=== PATIENT | female | born 1955 | race Caucasian/White ===

== ENCOUNTER 2021-02-22 14:02 | Outpatient (CLI) | payer MEDICARE, OTHER, SELFPAY ==
--- NOTE | 2021-02-22 17:40 | ONC CON_ITS ---
Dr. Benz New Patient Note Patient: Yenifer Ríos Unit #: [id number]: 1955 Dicatated By: China Benz M.D.Date of Visit: Feb 22, 2021 Onc MED New Patient/Consult Referring Physician: Dr. Grant Purvis M.D. History of Present Illness: This is a 65 year old woman who presented with clinical symptoms of umbilical hernia. Preoperative Ca-125 was 255 on 03/12/12. On 03/26/12 she underwent exploratory laparotomy and surgical debulking with total abdominal hysterectomy, bilateral oophorectomies with an block rectosigmoid resection and anastomosis, inguinal lymph node dissection. 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 3/20 lymph nodes were involved. Thus, pathological T3c N1 M1 (abdominal wall) FIGO stage IV. Left sided Port-A-Cath was placed. She was first seen on 04/15/12. Her baseline CT of chest abdomen and pelvis on 04/28/12 showed postoperative changes with seromas, but no evidence of recurrent disease, adenopathy or metastatic lesion. Ca-125 decreased to 74.9. Palliative chemotherapy with Carboplatin AUC of 6 and Paclitaxel 175 mg/m2 for six cycles every 3 weeks was recommenced. The chemotherapy was initiated on 04/28/12, complicated with grade 3 neutropenia without infections requiring further growth factor support. Her restaging CT of the chest abdomen and pelvis on 07/09/12, after 4 cycles of treatment, showed decreased postsurgical fluid collections and no evidence of disease progression. Cycle 6 was completed on 1/8/13. CEA 13.3. After that, patient moved to [place], where, in 2014 she went to [facility] with abnormal left breast mammogram, biopsy confirmed, subsequently underwent neoadjuvant chemotherapy with Taxotere/Herceptin/Perjeta for ER positive TN negative HER-2/eric positive disease followed by bilateral mastectomy which confirmed 8 out of 19 positive lymph node, e.g. yT2, yN2A, ER 94% positive TN 0% HER-2/eric 3+ by FISH stage III followed by Arimidex, and in early 2015 patient developed lesion on the left breast skin, excisional biopsy done on November 23, 2015 showed dermal cutaneous nodule of recurrence IDC of breast, grade 3, main tumor nodule measured 1.5 cm size and does not directly involve the margin. At least one satellite nodule of tumor measuring 0.2 cm in size with extensive lymphatic invasion by tumor including lymphatic channel adjacent to the margin concerning for skin/chest wall recurrence at the left reconstruction site. And brain mets CT PET scan done in January 2017 showed right glenohumeral joint lesion about 2.5 cm, MRI of right shoulder done in March 2017 showed 3.6 x 2.5 x 3.4 cm bone marrow lesion within the medial right humeral head consistent with sclerotic metastatic disease CT-guided biopsy was done which confirmed metastatic carcinoma consistent with breast primary ER positive TN negative HER-2/eric positive patient completed whole brain radiation therapy on on March 28, 2017 follow-up CT brain done in February 2018 showed no brain mets. Patient also had left excisional breast biopsy done in January 2017 showed high-grade IDC with dermal lymphatic invasion ER positive TN negative HER-2/eric positive, at that time she was placed on lapatinib 1250 mg p.o. daily which is used as systemic therapy to target HER-2/eric positive metastatic breast cancer, Faslodex was started on March 25, 2017, Herceptin started on March 20, 2017, Xgeva was started on June 17, 2017, on April 07, 2018 Herceptin and Tykerb was stopped and on April 28, 2018 patient was started on Kadcyla patient was referred to radiation oncology regarding radiation therapy to the right humerus but at that time he was decided to hold off radiation. Follow-up CT PET scan done on July 05 showed response to the treatment follow-up CT scan and bone scan done in November 2018 showed stable disease and follow-up CT scan of brain done on January 19, 2019 showed no brain mets but mild small vessel ischemic changes for which she was referred to neurology. Follow-up CT PET scan done in April 2019 shows stable disease but nonspecific tiny focus of FDG accumulation right third rib for which she was referred to pulmonology to address lung changes seen on CT scan on June 18, 2019 patient had a bone scan done which shows stable disease and her echocardiogram done on June 08, 2019 shows ejection fraction 65 to 70% and her follow-up CT PET scan done in November 2019 shows stable disease then repeat follow-up CT PET scan done on March 21, 2020 shows stable disease On April 06, 2020 patient had TTE which showed ejection fraction 74% Follow-up CT PET scan done in September 2020 shows status post bilateral mastectomy with no focal area of increased activity in the chest abdomen or pelvis to suggest metastatic disease. Stable minimally active fibrotic changes at the lung bases posteriorly most consistent with inflammatory process. New large area of intense activity in the left maxilla which could represent dental process. Stable nonmetabolically active sclerotic lesion at L2 and in the large humeral head. On January 31, 2022 February 03, 2020 patient underwent debridement of necrotic bone left maxilla and bleeding controlled surrounding soft tissue with Dr. Marlo Purvsi. Oral surgery. Postop finding were necrotic bone with sharp margins adjacent bleeding granulation tissue. Patient received 2 units of packed RBC. On February 09, 2021 Xgeva was discontinued due to ONJ. While continue with Kadcyla every 3 weeks and Faslodex every 4 weeks History of left lower extremity DVT patient was started on Eliquis on May 28, 2017 and Eliquis was stopped on November 26, 2018. History of skin rash across chest and on left arm seen by dermatology on December 28, 2019 and impression was spider angiomas may be due to underlying metastatic disease or hyper estrogen state versus liver disease from metastatic disease. History of left knee stiffness improved with physical therapy.,'s history of slightly elevated bilirubin around one-point being observed. History of hypoxia, VQ scan done on March 13, 2020 was normal study no history of PE., Stroke per patient and daughter patient had a fall on January 15, 2021 which prompted hospital stay and CT scan of head apparently revealed evidence of stroke she was started on baby aspirin and Lipitor with improvement to mental clarity On January 26, 2021 VQ scan lung shows no evidence of pulmonary embolism Patient has moved to [place] and now here to establish care. Denies any specific complaints, no fever chills, no nausea or vomiting, no diarrhea or constipation, only mild lower extremity edema, as per patient she traveled via car from [place] to [place] recently may have caused this edema. Denies any lower extremity pain denies any new bony pain denies any headaches blurred vision or double vision denies any shortness of breath or chest pain or palpitation. Past Medical History: Ms. Ríos's medical history consists of left lower extremity dvt, history of ovarian cancer in 2011, and history of melanoma, left cheek in 1980. Past Surgical History: Ms. Ríos's surgical/procedural history consists of appendectomy, hernia repair, inguinal lymph node dissection, covid vaccine #2 in 2020, covid vaccine #1 in 2020, mastectomy in 2015 - bilateral, and hysterectomy/bilateral salpingectomy-oophorectomy in 2011. Medications: Amoxicillin-Pot Clavulanate 1 Tablet (of 875-125 mg) Oral t.i.d., Aspirin 81 1 Tablet (of 81 mg) Tablet, chewable Oral daily, Calcium Tablet Oral, Crestor 1 Tablet (of 20 mg) Oral daily, Magnesium 1 Tablet (of 250 mg) Oral daily, MiraLax Powder Oral daily PRN Allergies: Iodinated Contrast Media Social History: Ms. Ríos is . Ms. Ríos has never smoked. She has no history of drinking. Family History: Ms. Ríos's father is : cancer history consists of Lung cancer at age 87 (cause of ). FATHER AT AGE 87 FROM LUNG CA. Review Of Symptoms: Review of Systems is not available for this patient. Vital Signs: Performed on Feb 22, 2021 15:22: 0, 0, 23.63, 1.88 sq.m, 69.00 in, 91 % (LOW), 74 /min, 18 /min, 112/67 mm(hg), 98.6 F, and 160 lbs (LOW). Performance Status: 2 - Ambulatory/capable of all self-care, unable to perform any work activities. Up and about more than 50% of waking hours. (ECOG) Physical Examination: ENMT - No mouth sores, no thrush, no jaundice, Respiratory - Lungs are clear to auscultation, Cardiovascular - Regular rate and rhythm of heart, Abdomen - Soft, bowel sounds present, Extremities - Trace edema bilaterally. Lab/Imaging: Most recent lab results are not available for this patient. Impression: Metastatic invasive ductal carcinoma involving brain status post radiation therapy and multiple bone lesions including biopsy-proven right humeral head in March 2017, at that time she was referred to radiation and patient received whole brain radiation therapy and completed on March 28, 2017 but no radiation was considered to right humerus. Earlier patient was diagnosed with left breast cancer in 2014, at that time she underwent neoadjuvant chemotherapy with Taxotere/Herceptin/Perjeta x6 followed by bilateral mastectomy which showed yT2 ,y N2A, MX stage III followed by Arimidex and then in January 2017 she underwent left breast excisional biopsy which showed high-grade IDC with dermal lymphatic invasion ER positive TN negative HER-2/eric positive, at that time she was placed on lapatinib 1250 mg p.o. daily, Faslodex was started on March 25, 2017 and Herceptin was added on March 20, 2017 and Xgeva was started on June 17, 2017, in April 2018 Herceptin and Tykerb was stopped and on April 28, 2018 she was started on Kadcyla every 3 weeks and follow-up scans done in 2017 and then in and in 2019 showed stable disease and the last PET scan done on September 19, 2020 showed status post bilateral mastectomy with no focal area of increased activity in the chest, abdomen or pelvis to suggest metastatic disease. Stable minimal reactive fibrotic changes at the lung bases consistent with inflammatory process. New large area of intense activity in the left maxilla could represent dental process. Stable nonmetabolically active sclerotic lesion at L2 and in the right humeral head. On January 31, 2021 patient underwent debridement of necrotic bone left maxilla and bleeding controlled surrounding soft tissue and patient did require 2 units of packed RBC. Xgeva was discontinued on February 09, 2021 due to ONJ, while continue on 3 weekly Kadcyla and for weekly Faslodex History of left lower extremity DVT started on Eliquis on May 28, 2017 stopped on November 26, 2018. History of mild transaminitis AST 137 on January 31, 2021, being monitored Pancreatic cyst seen on CT scan of chest abdomen pelvis in April 2019, she was referred to pancreaticobiliary surgeon, follow-up was recommended Skin rash across chest and left arm, was evaluated by dermatology on December 28, 2019 and impression was spider angiomas due to underlying metastatic disease or hyper estrogen state or medication Left knee stiffness improved with physical therapy. Slightly elevated bilirubin, being observed. Hypoxia, VQ scan done in March 2020 was normal study, was evaluated by Dr. Ty Trevizo on November 27, 2020 who advised her to use home oxygen to keep O2 saturation more than 89% his impression was patient may have ILD chest x-ray done on February 01, 2021 shows stable interstitial prominence within the periphery of both lungs suggestive of drug-related pneumonitis/fibrosis VQ scan done on January 26, 2021 shows no evidence of pulmonary embolism Patient status post maternal Covid vaccine done in September 1999 21-second dose was given on October 13, 2020 CVA as per patient and daughter patient had a fall on January 15, 2021 for which she was admitted to hospital and had CT scan of the brain which was consistent with stroke and she was started on baby aspirin and Lipitor with improvement to mental clarity. Plan: Discussed with patient regarding her disease status and treatment options, as patient is transitioning her care from [place] to [place], will continue with already established treatment with Kadcyla every 3 weeks and Faslodex every 4 weeks patient is due for her treatment, will obtain approval from her insurance prior to starting the treatment all the side effect possible benefits associated with Kadcyla and Faslodex were discussed briefly again but patient is aware of related side effects and she is on potassium supplement as Kadcyla can cause hypokalemia as one of the side effect. We will also obtain baseline echo to check ejection fraction and also order his follow-up CT PET scan to assess disease status, patient already has lab work-up done recently with CBC CMP, CEA and CA 15.3 and vitamin D level, will obtain the reports. Patient will return to clinic after echo with CBC CMP and to start her next scheduled dose of Kadcyla every 3 weeks and Faslodex every 4 weeks, as mentioned earlier Xgeva was discontinued because of ONJ involving left maxilla. Signed By: China Benz M.D. <<Signature on File>>
== END 2021-02-22 14:03 | disposition home or self-care (01) ==
LOC: ONCMED 14:13
PROVIDERS: PCP Family Medicine; Visit Provider Internal Medicine Hematology & Oncology
DX: C79.51 Secondary malignant neoplasm of bone (principal); Z85.3 Personal history of malignant neoplasm of breast; Z90.13 Acquired absence of bilateral breasts and nipples; I82.409 Acute embolism and thrombosis of unspecified deep veins of unspecified lower extremity; K86.2 Cyst of pancreas; R09.02 Hypoxemia; Z79.899 Other long term (current) drug therapy; R74.01 Elevation of levels of liver transaminase levels
CPT/HCPCS: 99215

== ENCOUNTER 2021-02-25 11:08 | Observation (INO) | payer MEDICARE, OTHER, SELFPAY ==
[2021-02-25] VITALS (7 sets, daily range): BP systolic 113–125; BP diastolic 60–76; PULSE 69–75; RESP 16–19; TEMP 36.5–36.6; O2SAT 90–99; BMI 25.0
[2021-02-25 11:25] LABS: Glucose Point of Care 90 mg/dL (70-110)
--- NOTE | 2021-02-25 11:28 | CTR_ITS ---
PROCEDURE INFORMATION: Exam: CT Head Without Contrast Exam date and time: 02/25/2021 11:28 AM Age: 65 years old Clinical indication: Speech disturbance; Additional info: Symptoms of acute stroke TECHNIQUE: Imaging protocol: Computed tomography of the head without contrast. Radiation optimization: All CT scans at this facility use at least one of these dose optimization techniques: automated exposure control; mA and/or kV adjustment per patient size (includes targeted exams where dose is matched to clinical indication); or iterative reconstruction. Other technique: STROKE PROTOCOL was implemented. COMPARISON: No relevant prior studies available. RADIATION DOSE METRICS: Total DLP (mGy-cm): 932.76 FINDINGS: Brain: No hemorrhage, mass effect or midline shift. There is a patchy airspace opacity in the superior right cerebellar hemisphere, concerning for acute infarct.There is foci of decreased attenuation in the periventricular and subcortical white matter, likely representing chronic small vessel ischemic changes. Mild cerebral volume loss is present. No intra-axial or extra-axial fluid collection seen. Cerebral ventricles: No ventriculomegaly. Paranasal sinuses: There is complete opacification of the left frontal sinus and partial opacification of the left ethmoid air cells. Mastoid air cells: Visualized mastoid air cells are well aerated. Bones/joints: Unremarkable. No acute fracture. Soft tissues: Unremarkable. CT/CT head wo con* [id number] IMPRESSION: Imaging findings concerning for acute infarct in the superior right cerebellar hemisphere. Further evaluation with brain MRI is recommended. ASSESSMENT: ASPECTS ([place] Stroke Program Early CT Score) is 10. Radiation Dose CTDIVOL = (mGy): DLP = 932.76 (mGy-cm)
--- NOTE | 2021-02-25 11:28 | ECG_ITS ---
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 Measurements Intervals [place] Rate: 60 P: 65 [place]: 173 QRS: 27 QRSD: 110 T: 32 QT: 439 QTc: 440 Interpretive Statements SINUS RHYTHM WITH SINUS ARRHYTHMIA No previous ECG available for comparison Electronically Signed On 02-25-2021 18:07:36 CDT by Sakina Flores M.D. [id number]
--- NOTE | 2021-02-25 11:29 | ED_ITS ---
HPI - Altered Mental Status General: Chief Complaint: Altered Mental Status Stated Complaint: POSS STROKE Time Seen by Provider: 02/25/21 11:20 Source: patient and family Mode of arrival: ambulatory Limitations: other (dysphagia) History of Present Illness: HPI narrative: At approximately 1050 am this morning, patient was riding as a passenger [place] their [place] and patient riley barrios had trouble speaking and seemed confused. Patient arrived to ED 20 min after onset and symptoms were improving. NIH currently 3. Patient denies trauma. She has a history of multiple cancers but states not on chemotherapy and no active cancer to her knowledge. Denies recent illness, trauma, anticoagulants. She has had dental bleeding from a tooth extraction in last few weeks; denies other major bleeding issues. I spoke with Ivanna, the patient's daughter, who states she had a mini stroke about 3 months ago and has had progressive cognitive decline since this. Ivanna says she had a tooth extraction 2 months ago; 2.5 weeks ago patient had a sore at extraction site and required 4 units of blood--had to have part of bone removed by OMFS. Ivanna reports she had minimal activity on recent PET scan. Ivanna and I discussed tPA; she is going to call her brother to discuss. Review of Systems General: Reports: 10 or more systems reviewed and unremarkable except in HPI and below Const: Denies: fever(s), chills or body aches Eyes: Denies: change in vision ENMT: Denies: throat pain Card: Denies: chest pain, edema or syncope Resp: Denies: dyspnea or productive cough GI: Denies: abdominal pain, nausea, vomiting or diarrhea : Denies: flank pain, dysuria or urinary frequency Musc: Denies: neck pain, back pain, extremity pain or extremity swelling Skin/Breast: Denies: rash or erythema Neuro: Reports: difficulty walking, confusion, Slurred speech present and difficulty communicating thoughts; Denies: headache(s), numbness in extremities, weakness in extremities, sensory changes, lack of coordination or dizziness Psych: Denies: anxiety Physical Exam Const: COMMON NORMALS: patient oriented x3 and alert ORIENTATION/CONSCIOU SNESS: Yes oriented to person, Yes oriented to place and Yes oriented to time Neck/C-Spine: COMMON NORMALS: no meningeal signs Neuro: TENISHA COMA SCALE: document GCS findings Tenisha coma scale eye opening: Spontaneous [place] coma scale verbal response: Orientated [place] coma scale motor response: Obey commands [place] coma scale total score: 15 COMMON NORMALS: patient oriented x3, moves all extremities and no sensory deficits noted SENSORIUM/ORIENTATION: Yes alert, Yes oriented to person, Yes oriented to place, Yes oriented to time and Yes other (slowed responses) MENINGEAL SIGNS: Yes no meningeal signs CRANIAL NERVES: Yes CN normal except as noted (mild right nasolabial fold flattening) COORDINATION/BALANCE: [id number] test normal, Normal rapid alternating movements of the distal upper extremity present (Neuro) and Normal rapid alternating movements of the distal lower extremity present (Neuro) SPEECH: abnormal speech (mild dysarthria, word finding trouble, slowed responses) and expressive aphasia GAIT: Yes Steppage gait present SENSORY EXAM: Yes Normal double simultaneous stimulation for sensation MOTOR EXAM: 5/5 motor strength present throughout, Pronator motor function not present, no asterixis and Other motor observations present (occasional muscle twitch/tremor) COORDINATION: [id number] test normal, rapid alternating movement UE normal and rapid alternating movement LE normal PUPIL EXAM: Normal pupillary reactivity/response: bilateral Course Vital Signs: Vital signs: Vital Signs Temperature 97.9 F 02/25/21 11:09 Pulse Rate 69 02/25/21 11:09 Respiratory Rate 19 H 02/25/21 11:09 Blood Pressure 113/67 02/25/21 11:09 Pulse Oximetry 90 02/25/21 11:09 MDM - Altered Mental Status MDM Narrative: Medical decision making narrative: Glucose 90 BP 113/67 NIH 3 for mild right nasolabial fold flattening, mild dysarthria, moderate expressive aphasia. Discussed with Dr Leonardo, stroke neurologist. He has recommended tPA as long as no contraindications, family confirms this is acute, and CT head w/o neg. Update: I was able to speak with daughter by phone. See hpi. Ivanna says patient has had one, if not more (her oopinion) strokes in the last 3 months. 1220: Imaging findings concerning for acute infarct in the superior right cerebellar hemisphere. Further evaluation with brain MRI is recommended. Given family's report of stroke within the last 3 months and now visible acute infarct, I have re-consulted Dr Leonardo to discuss tPA, which is contraindicated if patient has had stroke in last 3 months. Additionally, CT head found maging findings concerning for acute infarct in the superior right cerebellar hemisphere indicating there has been another infarct more recently than 10:[address] Leonardo who agrees with plan. Admitted to Dr Power. Lab Data: Labs: Lab Results 02/25/21 02/25/21 02/25/21 Range/Units 11:23 11:33 11:33 WBC 6.1 (4.0-10.0) 10^3/ uL RBC 3.12 L (4.1-5.3) 10^6/u L Hgb 8.4 L (11.5-15.3) g/dL Hct 28.6 L (37.0-47.0) % MCV 91.7 (81-99) fL MCH 26.9 L (28.0-34.0) pg MCHC 29.4 L (30.0-36.0) g/dL RDW 18.8 H (12.1-15.1) % Plt Count 237 (130-400) 10^3/c mm MPV 10.1 (7.4-10.4) fL Neut % (Auto) 53.2 % Lymph % (Auto) 31.4 % [place] % (Auto) 9.4 % Eos % (Auto) 4.0 % Baso % (Auto) 1.5 % Neut # (Auto) 3.22 (1.8-7.7) 10^3/u L Lymph # (Auto) 1.9 (0.8-4.8) 10^3/u L [place] # (Auto) 0.6 (0.2-0.9) 10^3/u L Eos # (Auto) 0.2 (0.0-0.8) 10^3/u L Baso # (Auto) 0.1 (0.0-0.1) 10^3/u L Nucleated RBC % (a uto) 0 % Nucleated RBCs # 0.0 /100WBC PT 13.40 (12.1-14.9) SECO NDS INR 0.99 (0.8-1.2) APTT 33.3 (23.9-36.7) SECO NDS Sodium (136-145) mmol/L Potassium (3.5-5.1) mmol/L Chloride (98-107) mmol/L Carbon Dioxide (22-29) mmol/L Anion Gap (5-19) BUN (8-23) mg/dL Creatinine (0.5-0.9) mg/dL GFR Calculation (90-130) mL/min Glucose (65-115) mg/dL POC Glucose 90 (70-110) mg/dL Calculated Osmolal ity (285-295) mOsm/k g Calcium (8.5-10.5) mg/dL Total Bilirubin (0.15-1.2) mg/dL AST (0-32) U/L ALT (0-33) U/L Alkaline Phosphata se (35-105) IU/L Total Protein (6.6-8.7) g/dL Albumin (3.5-5.2) g/dL Globulin (1.3-4.6) g/dL 02/25/21 Range/Units 11:33 WBC (4.0-10.0) 10^3/ uL RBC (4.1-5.3) 10^6/u L Hgb (11.5-15.3) g/dL Hct (37.0-47.0) % MCV (81-99) fL MCH (28.0-34.0) pg MCHC (30.0-36.0) g/dL RDW (12.1-15.1) % Plt Count (130-400) 10^3/c mm MPV (7.4-10.4) fL Neut % (Auto) % Lymph % (Auto) % [place] % (Auto) % Eos % (Auto) % Baso % (Auto) % Neut # (Auto) (1.8-7.7) 10^3/u L Lymph # (Auto) (0.8-4.8) 10^3/u L [place] # (Auto) (0.2-0.9) 10^3/u L Eos # (Auto) (0.0-0.8) 10^3/u L Baso # (Auto) (0.0-0.1) 10^3/u L Nucleated RBC % (a uto) % Nucleated RBCs # /100WBC PT (12.1-14.9) SECO NDS INR (0.8-1.2) APTT (23.9-36.7) SECO NDS Sodium 138 (136-145) mmol/L Potassium 4.0 (3.5-5.1) mmol/L Chloride 102 (98-107) mmol/L Carbon Dioxide 27 (22-29) mmol/L Anion Gap 13.0 (5-19) BUN 23 (8-23) mg/dL Creatinine 0.6 (0.5-0.9) mg/dL GFR Calculation 99.7 (90-130) mL/min Glucose 88 (65-115) mg/dL POC Glucose (70-110) mg/dL Calculated Osmolal ity 289 (285-295) mOsm/k g Calcium 9.7 (8.5-10.5) mg/dL Total Bilirubin 0.8 (0.15-1.2) mg/dL AST 31 (0-32) U/L ALT 18 (0-33) U/L Alkaline Phosphata se 100 (35-105) IU/L Total Protein 6.8 (6.6-8.7) g/dL Albumin 3.3 L (3.5-5.2) g/dL Globulin 3.5 (1.3-4.6) g/dL EKG Data^: EKG 1: Attestation: I personally reviewed and interpreted this EKG as follows: Interpretation: sinus at 60, nl axis, nl axis, qrs 110 ms, no concerning st-t wa ve changes Critical Care Time Critical Care Time: Critical Care Time: Yes Total Critical Care Time: 60 Attestation: Complex decision making with neurologic deficits, obtaining collateral, multiple reassessments, consultation with specialist, review of imaging and vitals. Discharge Plan Discharge Patient Disposition: Placed in Observation Clinical Impression: Expressive aphasia, Acute stroke due to ischemia Coding Level of Care Code ED Mess Attendant Crew for Chg Fwd Exam Expanded Problem Focused
[2021-02-25 11:55] LABS: Basophils # 0.1 10^3/uL (0.0-0.1); Basophils % 1.5 %; Eosinophils # 0.2 10^3/uL (0.0-0.8); Hematocrit 28.6 % (37.0-47.0); Hemoglobin 8.4 g/dL (11.5-15.3); Lymphocytes # 1.9 10^3/uL (0.8-4.8); Lymphocytes % 31.4 %; Mean Corpuscular HGB Conc 29.4 g/dL (30.0-36.0); Mean Corpuscular Hemoglobin 26.9 pg (28.0-34.0); Mean Corpuscular Volume 91.7 fL (81-99); Mean Platelet Volume 10.1 fL (7.4-10.4); Monocytes # 0.6 10^3/uL (0.2-0.9); Monocytes % 9.4 %; Neutrophils # 3.22 10^3/uL (1.8-7.7); Neutrophils % 53.2 %; Nucleated Red Blood Cells % 0 %; Platelet Count 237 10^3/cmm (130-400); Red Blood Count 3.12 10^6/uL (4.1-5.3); Red Cell Distribution Width 18.8 % (12.1-15.1); White Blood Count 6.1 10^3/uL (4.0-10.0)
[2021-02-25 12:00] LABS: INR 0.99 (0.8-1.2)
[2021-02-25 12:01] LABS: Partial Thromboplastin Time 33.3 SECONDS (23.9-36.7)
[2021-02-25 12:11] LABS: Alanine Aminotransferase 18 U/L (0-33); Albumin Level 3.3 g/dL (3.5-5.2); Alkaline Phosphatase 100 IU/L (35-105); Aspartate Amino Transferase 31 U/L (0-32); Blood Urea Nitrogen 23 mg/dL (8-23); Calcium 9.7 mg/dL (8.5-10.5); Carbon Dioxide 27 mmol/L (22-29); Chloride 102 mmol/L (98-107); Globulin 3.5 g/dL (1.3-4.6); Glomerular Filtration Rate 99.7 mL/min (90-130); Glucose 88 mg/dL (65-115); Osmolality Calculated 289 mOsm/kg (285-295); Sodium 138 mmol/L (136-145); Total Bilirubin 0.8 mg/dL (0.15-1.2); Total Protein 6.8 g/dL (6.6-8.7)
[2021-02-25] MEDS: aspirin 81 mg Chew Tablet PO (13:51)
[2021-02-25 14:08] LABS: Urine Appearance Cloudy (CLEAR); Urine Color Yellow (Yellow); pH Urine 6.5 (5-7)
[2021-02-25 14:09] LABS: Add Urine Microscopic? YES; Bilirubin Urine Neg (Negative); Blood Urine Neg (Negative); Glucose Urine UA Norm (Normal); Ketones Urine Negative (Negative); Leukocyte Esterase Urine Negative (Negative); Nitrate Urine Negative (Negative); Protein Urine Neg (Negative); Urobilinogen Urine 1 mg/dL (Negative)
[2021-02-25 14:10] LABS: Add Urine Culture? No; Amorphous Sediment Urine 3+ /hpf; Bacteria Urine 1+ /hpf; Squamous Epithelial Cell Urine RARE /hpf (0-5); WBC Urine 0-4 /hpf (0-5)
--- NOTE | 2021-02-25 15:00 | P.HP_ITS ---
Providers/Chief Complaint Primary Care Provider: Grant Purvis MD Chief Complaint: POSS STROKE History of Present Illness Yenifer Ríos is a 65 year old female who has history of multiple cancers, has moved from [facility] to [place] recently presented today when her daughter noticed slurring of speech while they were driving. Symptoms started around 10:50 AM and she was brought to the ER within 20 minutes her NIH score was 3 she was deemed not a TPA candidate because of recent episode of stroke, low NIH score. She has metal in her body which is not MRI compatible, she has iodine allergies. CT head unremarkable, stroke code was called Dr. Chavez recommended echo admit to telemetry floor to rule out A. fib carotid Doppler and dual antiplatelet therapy. She also had dental bleeding from tooth extraction lately and required 4 units of blood. Patient is stating that she moved from [facility] a week ago. She was in [place] for treatment of her cancer. Today when she arrived in the ER within 20 minutes of her symptoms her speech which was initially slurred improved already. She was given NIH score of 3 not a TPA candidate. By the time I saw her she was not complaining of any active chest pain, shortness of breath nausea, vomiting or diarrhea. Her speech was fine no active slurring of speech noted. She was asking for food. Patient is stating that she gets slurring of speech/dysarthria intermittently and it was probably the same presentation 3 months ago. Diagnostics in the ER revealed normal hemodynamics, normal CBC and BMP CBC revealed anemia 8.[address] head shows acute infarct in the superior right cerebellar hemisphere Review of Systems Const: Reports: chills Eyes: Denies: change in vision ENMT: Denies: throat pain Card: Denies: chest pain Resp: Denies: dyspnea GI: Denies: abdominal pain : Denies: flank pain Musc: Denies: neck pain Skin/Breast: Denies: rash Neuro: Denies: headache(s) Psych: Reports: anxiety and depression Endo: Denies: polyuria Benji/Lymph: Denies: easy bruising All/Imm: Denies: urticaria Medications/Allergies Home Medications Medication Instructions Recorded Confirmed Last Taken Type amoxicillin-pot clavulanate 1 tab PO TID 02/25/21 02/25/21 02/25/21 History aspirin [Aspir-81] 81 mg PO DAILY 0702/25/21 02/25/21 History calcium 250 mg PO DAILY 02/25/21 02/25/21 02/25/21 History magnesium 200 mg PO DAILY 02/25/21 02/25/21 02/25/21 History rosuvastatin 20 mg PO DAILY 02/25/21 02/25/21 02/25/21 History Allergies Allergy/AdvReac Type Severity Reaction Status Date / Time Iodinated Contrast Media Allergy ALGY-Anaphy Verified 02/25/21 11:09 laxis iodine Allergy ALGY-Anaphy Verified 02/25/21 11:09 laxis PFSH Acute PFSH: Medical History Ovarian cancer Stage IV Recurrent strokes Skin cancer Surgical History H/O abdominal hysterectomy Debulking surgery H/O umbilical hernia repair History of colon surgery Rectosigmoid resection and anastomosis S/P DARCIE-BSO Family History Other Cancer Social History Smoking and tobacco status: never smoked Alcohol intake: never Substance/Drug Use: never Marital status: Vitals/I&O/Wt Last Vital Signs Temp 97.9 F 02/25/21 11:09 Pulse 69 02/25/21 11:09 Resp 19 H 02/25/21 11:09 BP 113/67 02/25/21 11:09 Pulse Ox 90 02/25/21 11:09 Weight last 48 hrs Weight 72.575 kg Physical Exam Narrative: EXAM NARRATIVE: Pleasant cooperative female who was laying comfortably in her bed NIH score of 1 for partial nasolabial fold flattening and angle of mouth deviation on right side Hemodynamically stable Was able to do finger-nose test with her right hand EOMI, PERRLA She was wearing her glasses S1, S2 systolic murmur right second intercostal space Abdomen soft Lower extremity no edema Awake alert oriented x3 Appears anxious No signs of joint swelling or cellulitis Data : 02/25/21 11:33 02/25/21 11:33 A&P Assessment and plan (1) Expressive aphasia: Status: Acute (2) Acute stroke due to ischemia: Status: Acute Additional A&P Information TIA dysarthria with expressive aphasia Symptoms resolved by the time I saw her NIH score of 1 initially she was given and a score of 3 EKG showing sinus rhythm Patient is stating that she gets intermittent dysarthria Started on aspirin and Plavix and high-dose statin Monitor on telemetry requested ultrasound of carotids and echocardiogram Not a candidate of MRI her metal is incompatible Anaphylactic reaction to iodine cannot get CTA head and neck PT evaluation in the morning No active slurring of speech I will let her have her dinner after bedside dysphagia evaluation Would recommend outpatient follow-up with Dr. Christensen Would request records from [facility] Superior right cerebellar hemisphere infarct with changes No active signs of bleeding however hemoglobin is 8.4 Full code Cardiac diet DVT prophylaxis Lovenox Attestations Medical Necessity Statement*: Anticipating discharge within 48 hours Time Spent in Patient Care: 30mins Coding Level of Care Code Acute [facility]iat[facility] for Dejuan Kincaid Diagnoses Expressive aphasia R47.01 Acute stroke due to ischemia I63.9
--- NOTE | 2021-02-25 18:35 | PC.NURSE ---
[facility] [place], [place] number [phone]
[2021-02-25] MEDS: amoxicillin-clav 500-125 mg Tablet 1 TAB PO (20:37)
[2021-02-25 20:43] LABS: Glucose Point of Care 126 mg/dL (70-110)
[2021-02-26] VITALS: BP 120/66; BP 125/76; PULSE 74; PULSE 75; RESP 16; RESP 17; TEMP 36.6; O2SAT 98
[2021-02-26 04:00] VITALS: BP 94/55; PULSE 64; RESP 16; TEMP 37.1; O2SAT 97
[2021-02-26 06:00] VITALS: PULSE 70
--- NOTE | 2021-02-26 06:00 | USCV_ITS ---
Yenifer Ríos Age: 65 Gender: F : 1955 Exam Date: 02/26/2021 07:23 Ordering Phys: Minnie Power MD Technologist: Fransisco Cotto Exam Location: [facility] [place] Indication: TACHYCARDIA BP: 94 / 55 HR: 55 Rhythm: Sinus Technical Quality: Good MEASUREMENTS (Male / Female) Normal Values 2D ECHO LV Diastolic Diameter PLAX 4.1 cm 4.2 - 5.9 / 3.9 - 5.3 cm LV Systolic Diameter PLAX 2.8 cm IVS Diastolic Thickness 1.3 cm 0.6 - 1.0 / 0.6 - 0.9 cm IVS Systolic Thickness 2.0 cm LVPW Diastolic Thickness 1.3 cm 0.6 - 1.0 / 0.6 - 0.9 cm LVPW Systolic Thickness 1.5 cm LVOT Diameter 2.0 cm LV Ejection Fraction 2D Teich 60.1 % LV Ejection Fraction MOD 2C 77.9 % LV Ejection Fraction 2C AL 79.7 % LA Diameter 3.5 cm LA Width 3.2 cm LA Height 3.6 cm RA Width 2.7 cm RA Height 3.9 cm Aorta at Sinotubular Diameter 2.1 cm M-MODE LV Diastolic Diameter MM 3.2 cm 4.2 - 5.9 / 3.9 - 5.3 cm LV Systolic Diameter MM 1.6 cm LV Ejection Fraction MM Teich 82.0 % IVS Diastolic Thickness MM 1.5 cm 0.6 - 1.0 / 0.6 - 0.9 cm IVS Systolic Thickness MM 1.3 cm LVPW Diastolic Thickness MM 1.2 cm 0.6 - 1.0 / 0.6 - 0.9 cm LVPW Systolic Thickness MM 1.4 cm Aortic Annulus Diameter 3.3 cm LA Ao Ratio MM 1.1 MV E Point Septal Separation 0.8 cm DOPPLER AV Peak Velocity 121.0 cm/s LVOT Peak Velocity 113.0 cm/s AV Area Cont Eq vti 2.9 cm squared AV Area Cont Eq pk 3.0 cm squared MV Peak Velocity 570.0 cm/s MV Area PHT 3.4 cm squared Mitral E to A Ratio 0.8 MV E' Velocity 71.0 cm/s TR Peak Velocity 114.0 cm/s TR Peak Gradient 5.2 mmHg RV Acceleration Time 0.1 s RV Ejection Time 0.4 s RV AcT/ET 0.3 FINDINGS Left Ventricle Normal left ventricular size. LV systolic function is normal with EF of 55-60%. No regional wall motion abnormalities. Grade 1 diastolic dysfunction Right Ventricle The right ventricle is normal in size and function. Right Atrium The right atrium is normal in size. Left Atrium The left atrium is mildly dilated Mitral Valve Mitral annular calcification without significant stenosis or prolapse. There is mild mitral regurgitation. Aortic Valve Structurally normal aortic valve without significant sclerosis or stenosis. There is no aortic regurgitation. Tricuspid Valve Structurally normal tricuspid valve without significant stenosis or regurgitation. Insufficient TR jet to calculate RVSP Pulmonic Valve Structurally normal pulmonic valve without significant stenosis. There is no pulmonic regurgitation. Pericardium Normal pericardium without effusion. Aorta Normal ascending aorta dimension. CONCLUSIONS LV systolic function is normal with EF of 55-60% Grade 1 diastolic dysfunction Mild mitral regurgitation Left atrium is mildly dilated No comparison studies are available Prasanna Reyes MD (Electronically Signed) Final Date: 26 February 2021 16:44 S
--- NOTE | 2021-02-26 06:00 | USCV_ITS ---
[place] Yenifer Age: 65 Gender: F : 1955 Exam Date: 02/26/2021 06:56 Ordering Phys: Minnie Power MD Technologist: CONRAD [place] [facility] [place]ication: STROKE LIKE SYMPTOMS Risk Factors: Previous Vascular Surgery: Right Brachial BP: / Left Brachial BP: / Right Left Velocity (cm/s) Spectral Plaque Velocity (cm/s) Spectral Plaque Syst/Diast Broadening Syst/Diast Broadening 94.80/ 26.50 Prox CCA 123.50/ 30.90 87.10/ 35.30 Mid CCA 77.00 / 34.10 63.90/ 20.90 Distal CCA 75.00 / 27.60 66.70/ 25.30 Prox ICA 109.20/ 47.40 105.80/36.40 Mid ICA 60.20 / 24.20 118.00/41.90 Distal ICA 49.90 / 20.80 76.60 ECA 59.30 1.22 ICA/CCA 0.78 Antegrade Vertebral Antegrade 54.70/ 20.90 cm/s 34.20/ 12.40 cm/s Tri Subclavian Tri 122.4 140.7 0 0 CONCLUSIONS Right ICA stenosis <50%. Mild atheromatous plaque right carotid bulb/ICA. Left ICA stenosis <50%. Mild atheromatous plaque left carotid bulb/ICA. Normal antegrade Doppler flow noted in the right vertebral artery. Normal antegrade Doppler flow noted in the left vertebral artery. David Walden MD (Electronically Signed) Final Date: 26 February 2021 08:42 S
[2021-02-26 06:11] LABS: Basophils # 0.2 10^3/uL (0.0-0.1); Basophils % 2.4 %; Eosinophils # 0.4 10^3/uL (0.0-0.8); Eosinophils % 5.7 %; Hematocrit 23.1 % (37.0-47.0); Hemoglobin 6.8 g/dL (11.5-15.3); Lymphocytes # 2.6 10^3/uL (0.8-4.8); Lymphocytes % 41.7 %; Mean Corpuscular HGB Conc 29.4 g/dL (30.0-36.0); Mean Corpuscular Hemoglobin 27.1 pg (28.0-34.0); Monocytes # 0.6 10^3/uL (0.2-0.9); Monocytes % 9.6 %; Neutrophils # 2.47 10^3/uL (1.8-7.7); Neutrophils % 40.3 %; Nucleated Red Blood Cells % 0 %; Platelet Count 180 10^3/cmm (130-400); Red Blood Count 2.51 10^6/uL (4.1-5.3); Red Cell Distribution Width 18.6 % (12.1-15.1); White Blood Count 6.1 10^3/uL (4.0-10.0)
[2021-02-26 06:38] LABS: Glucose Point of Care 89 mg/dL (70-110)
[2021-02-26 06:46] LABS: Anion Gap 10.8 (5-19); Blood Urea Nitrogen 21 mg/dL (8-23); Carbon Dioxide 28 mmol/L (22-29); Chloride 106 mmol/L (98-107); Glomerular Filtration Rate 99.7 mL/min (90-130); Glucose 75 mg/dL (65-115); Osmolality Calculated 294 mOsm/kg (285-295); Potassium 3.8 mmol/L (3.5-5.1); Sodium 141 mmol/L (136-145)
[2021-02-26 08:00] VITALS: BP 124/63; PULSE 63; RESP 17; TEMP 36.4; O2SAT 95
[2021-02-26] MEDS: atorvastatin 40 mg Tablet 80 MG PO (08:12)
[2021-02-26] MEDS: amoxicillin-clav 500-125 mg Tablet 1 TAB PO (08:12)
[2021-02-26] MEDS: clopidogrel 75 mg Tablet PO (08:12)
[2021-02-26] MEDS: aspirin 81 mg EC Tablet PO (08:12)
[2021-02-26 10:13] LABS: Hematocrit 27.4 % (37.0-47.0); Hemoglobin 8.1 g/dL (11.5-15.3)
[2021-02-26 11:30] VITALS: BP 114/66; PULSE 75; RESP 18; TEMP 36.3; O2SAT 97
[2021-02-26 11:33] LABS: Glucose Point of Care 118 mg/dL (70-110)
--- NOTE | 2021-02-26 12:25 | P.DS_ITS ---
Discharge Providers Date of Admission: 02/25/21 15:08 Date of Discharge: February 26, 2021 Attending Provider at Admission: Minnie Power MD Attending Provider at Discharge: Minnie Power MD Primary Care Provider: Grant Purvis MD Diagnoses at Discharge Discharge Diagnosis (1) Expressive aphasia: Status: Acute (2) Acute stroke due to ischemia: Status: Acute Reason for Visit Reason for Visit: POSS STROKE Hospital Course Hospital Course HPI Yenifer Ríos is a 65 year old female who has history of multiple cancers, has moved from [facility] to [place] recently, & presented today when her daughter noticed slurring of speech while they were driving. Symptoms started around 10:50 AM and she was brought to the ER within 20 minutes her NIH score was 3 she was deemed not a TPA candidate because of recent episode of stroke, low NIH score. She has metal in her body which is not MRI compatible, she has iodine allergies(anaphylaxis). CT head unremarkable, stroke code was called Dr. Waters recommended echo admit to telemetry floor to rule out A. fib carotid Doppler and dual antiplatelet therapy. She also had dental bleeding from tooth extraction lately and required 4 units of blood. Patient is stating that she moved from [facility] a week ago. She was in [place] for treatment of her cancer. Today when she arrived in the ER within 20 minutes of her symptoms her speech which was initially slurred improved already. She was given NIH score of 3 not a TPA candidate. By the time I saw her she was not complaining of any active chest pain, shortness of breath nausea, vomiting or diarrhea. Her speech was fine no active slurring of speech noted. She was asking for food. Patient is stating that she gets slurring of speech/dysarthria intermittently and it was probably the same presentation 3 months ago. Diagnostics in the ER revealed normal hemodynamics, normal CBC and BMP CBC revealed anemia 8.[address] head shows acute infarct in the superior right cerebellar hemisphere Hospital course Patient did not experience recurrence of her symptoms. On 02/26 noticed hemoglobin 6.8, I requested another H&H before starting anemia work-up, her hemoglobin came back 8.1 no overnight events of bleeding. She stayed hemodynamically stable no hypotension or orthostasis. She has been noticing small specks of blood whenever she wipes herself has history of internal hemorrhoids. No recent dental bleed. EKG with sinus rhythm. During my evaluation she did not exhibit any typical cerebellar lesion signs. Carotid Doppler CONCLUSIONS Right ICA stenosis <50%. Mild atheromatous plaque right carotid bulb/ICA. Left ICA stenosis <50%. Mild atheromatous plaque left carotid bulb/ICA. Normal antegrade Doppler flow noted in the right vertebral artery. Normal antegrade Doppler flow noted in the left vertebral artery. Medication on discharge: Aspirin, Plavix 3 weeks regimen atorvastatin 80 mg, Protonix 40 mg daily Patient was instructed when to stop her antiplatelet therapy Follow-up with Dr. Christensen in 2 weeks She will be discharged with event monitor to detect any irregular rhythm CT/CT head wo con* [id number] IMPRESSION: Imaging findings concerning for acute infarct in the superior right cerebellar hemisphere. Further evaluation with brain MRI is recommended. Physical Exam Narrative: EXAM NARRATIVE: Pleasant cooperative female who was laying comfortably in her bed NIH score of 1 for partial nasolabial fold flattening and angle of mouth deviation on right side Hemodynamically stable Was able to do finger-nose test and knee to heel without any limitations no scanning speech or dysdiadochokinesia EOMI, PERRLA She was wearing her glasses S1, S2 systolic murmur right second intercostal space Abdomen soft Lower extremity no edema Awake alert oriented x3 Appears anxious No signs of joint swelling or celluli Does not have typical cerebellar lesion sign Discharge Data Data Completed and Pending: Completed Studies During Hospitalization Category Date Time Status CT head wo con* [id number] Stat Cat Scan 02/25/21 11:28 Completed CV carotid duplex BI* [id number] Routine Ultrasound 02/26/21 06:00 Completed Pending at discharge Category Date Time Status Immunochemical Fe siomara OCB Stat Lab 02/26/21 08:49 Uncollected CV. echo complete * [id number] Routine Ultrasound 02/26/21 06:00 Taken Labs from last 24 hours 02/26/21 02/26/21 02/26/21 11:27 09:50 06:33 WBC RBC Hgb 8.1 L Hct 27.4 L MCV MCH MCHC RDW Plt Count MPV Neut % (Auto) Lymph % (Auto) [place] % (Auto) Eos % (Auto) Baso % (Auto) Neut # (Auto) Lymph # (Auto) [place] # (Auto) Eos # (Auto) Baso # (Auto) Nucleated RBC % (a uto) Nucleated RBCs # Sodium Potassium Chloride Carbon Dioxide Anion Gap BUN Creatinine GFR Calculation Glucose POC Glucose 118 H 89 Calculated Osmolal ity Calcium Urine Color Urine Appearance Urine pH Ur Specific Gravit y Urine Protein Urine Glucose (UA) Urine Ketones Urine Blood Urine Nitrate Urine Bilirubin Urine Urobilinogen Ur Leukocyte Faye ase Urine RBC Urine WBC Ur Squamous Epith Cells Amorphous Sediment Urine Bacteria 02/26/21 02/26/21 02/25/21 05:16 05:16 20:38 WBC 6.1 RBC 2.51 L Hgb 6.8 L Hct 23.1 L MCV 92.0 MCH 27.1 L MCHC 29.4 L RDW 18.6 H Plt Count 180 MPV 10.0 Neut % (Auto) 40.3 Lymph % (Auto) 41.7 [place] % (Auto) 9.6 Eos % (Auto) 5.7 Baso % (Auto) 2.4 Neut # (Auto) 2.47 Lymph # (Auto) 2.6 [place] # (Auto) 0.6 Eos # (Auto) 0.4 Baso # (Auto) 0.2 H Nucleated RBC % (a uto) 0 Nucleated RBCs # 0.0 Sodium 141 Potassium 3.8 Chloride 106 Carbon Dioxide 28 Anion Gap 10.8 BUN 21 Creatinine 0.6 GFR Calculation 99.7 Glucose 75 POC Glucose 126 H Calculated Osmolal ity 294 Calcium 9.0 Urine Color Urine Appearance Urine pH Ur Specific Gravit y Urine Protein Urine Glucose (UA) Urine Ketones Urine Blood Urine Nitrate Urine Bilirubin Urine Urobilinogen Ur Leukocyte Faye ase Urine RBC Urine WBC Ur Squamous Epith Cells Amorphous Sediment Urine Bacteria 02/25/21 13:49 WBC RBC Hgb Hct MCV MCH MCHC RDW Plt Count MPV Neut % (Auto) Lymph % (Auto) [place] % (Auto) Eos % (Auto) Baso % (Auto) Neut # (Auto) Lymph # (Auto) [place] # (Auto) Eos # (Auto) Baso # (Auto) Nucleated RBC % (a uto) Nucleated RBCs # Sodium Potassium Chloride Carbon Dioxide Anion Gap BUN Creatinine GFR Calculation Glucose POC Glucose Calculated Osmolal ity Calcium Urine Color Yellow Urine Appearance Cloudy Urine pH 6.5 Ur Specific Gravit y 1.020 Urine Protein Neg Urine Glucose (UA) Norm Urine Ketones Negative Urine Blood Neg Urine Nitrate Negative Urine Bilirubin Neg Urine Urobilinogen 1 H Ur Leukocyte Faye ase Negative Urine RBC None Urine WBC 0-4 H Ur Squamous Epith Cells Rare Amorphous Sediment 3+ Urine Bacteria 1+ H Vitals: Last Vital Signs Temp 97.4 F L 02/26/21 11:30 Pulse 75 02/26/21 11:30 Resp 18 02/26/21 11:30 BP 114/66 02/26/21 11:30 Pulse Ox 97 02/26/21 11:30 Discharge Plan Discharge Patient Disposition: Home Condition: Stable Prescriptions: New aspirin 81 mg Tablet,Delayed Release (Dr/Ec) 81 mg PO DAILY 30 Days Qty: 30 RF: 3 amoxicillin-pot clavulanate 500-125 mg Tablet 1 tab PO TID 7 Days Qty: 21 RF: 0 atorvastatin 40 mg Tablet 80 mg PO DAILY 30 Days Qty: 30 RF: 3 clopidogrel 75 mg Tablet 75 mg PO DAILY 21 Days Qty: 21 RF: 0 Protonix [address] for susp in packet 40 mg PO DAILY Qty: 30 RF: 1 Discontinued aspirin [Aspir-81] 81 mg Tablet,Delayed Release (Dr/Ec) 81 mg PO DAILY RF: 0 calcium 250 mg Tablet 250 mg PO DAILY RF: 0 amoxicillin-pot clavulanate 500-125 mg tablet 1 tab PO TID RF: 0 magnesium 200 mg Tablet 200 mg PO DAILY RF: 0 rosuvastatin 20 mg tablet 20 mg PO DAILY RF: 0 Discharge Orders: Discharge Order (Routine); Ordered 02/26/21 Ordered By: Minnie Power Other Ambulatory Orders: Complete Blood Count w/Auto (Routine) Timeframe: 3 Days Location: Determined by Patient Ordered By: Minnie Power [place] cardiac event monitor (Routine) Timeframe: 3 Weeks Facility: [facility] - Location: Cardiac Diagnostic Laboratory Ordered By: Minnie Power Referrals: Olinda Christensen MD [Physician] - 2 weeks Grant Purvis MD [Primary Care Provider] - 03/07/21 3:00 pm Discharge Diet: Cardiac Discharge Activity: Resume usual activity and Increase activity as tolerated Patient Instructions: Aspirin (By mouth), Amoxicillin/Clavulanate Potassium (By mouth), Atorvastatin (By mouth), Clopidogrel (By mouth), Pantoprazole (By mouth), Aphasia (DC), Ischemic Stroke (DC), Opioid Safety Activity Restrictions/Additional Instructions: You can use aspirin or Plavix for 3 weeks and after that he would only use aspirin. We will also use 80 mg of atorvastatin You can see Dr. Christensen our neurologist within 2 weeks He will wear arm monitor which is call event monitor for at least 3 weeks to detect any abnormal heart rhythm In case he noticed any profuse bleeding please stop taking aspirin Plavix Discharge Attestations Time Spent in Discharge Care*: less than 30 min Quality Metrics Clinical Quality Measures During this hospital stay, did patient experience: Stroke Contraindication to Antithrombotic: Antithrombotic prescribed Contraindication to Anticoagulation: Medical contraindication Contraindication to Statin: Statin prescribed Contraindication to antithrombotic day 2: Antithrombotic given Contraindication to tPA: Treatment not indicated Onset of Symptoms Date: 02/25/21 Onset of Symptoms Time: 10:50 Symptom Onset Unknown: No Reason stroke education not provided: Stroke education provided to patient Coding Level of Care Code Acute [facility] note Diagnoses Expressive aphasia R47.01 Acute stroke due to ischemia I63.9
[2021-02-26 14:41] LABS: Ferritin 12 ng/mL (15-150); Iron 20 ug/dL (37-145); Percent Saturation 7.7 % (20-50); Total Iron Binding Capacity 259 mcg/dl; Unsaturated Iron Binding 239 ug/dL (112-347); Vitamin B12 570 pg/mL (232-1245)
[2021-02-26 14:52] VITALS: BP 114/66; PULSE 75; RESP 18; TEMP 36.3; O2SAT 97
== END 2021-02-26 14:53 | disposition home or self-care (01) ==
LOC: ER 12:45 → MEDSURG 16:15
PROVIDERS: Admitting Provider Internal Medicine; Emergency Provider Emergency Medicine; PCP Family Medicine; Visit Provider Internal Medicine
DX: I63.9 Cerebral infarction, unspecified (principal); R47.01 Aphasia; R29.703 NIHSS score 3; I65.23 Occlusion and stenosis of bilateral carotid arteries; D64.9 Anemia, unspecified; C56.9 Malignant neoplasm of unspecified ovary
CPT/HCPCS: 36415; 36416; 70450; 80048; 80053; 81001; 82607; 82728; 82962; 83540; 83550; 85014; 85018; 85025; 85610; 85730; 93005; 93306; 93880; 97161; 97530; 99285; G0378

== ENCOUNTER 2021-03-12 05:51 | Outpatient (CLI) | payer MEDICARE, OTHER, SELFPAY ==
[2021-03-12 09:36] LABS: Basophils # 0.2 10^3/uL (0.0-0.1); Basophils % 2.3 %; Eosinophils # 0.4 10^3/uL (0.0-0.8); Eosinophils % 5.3 %; Hematocrit 27.5 % (37.0-47.0); Hemoglobin 7.9 g/dL (11.5-15.3); Lymphocytes # 2.5 10^3/uL (0.8-4.8); Lymphocytes % 37.3 %; Mean Corpuscular HGB Conc 28.7 g/dL (30.0-36.0); Mean Corpuscular Hemoglobin 25.6 pg (28.0-34.0); Mean Platelet Volume 10.5 fL (7.4-10.4); Monocytes # 0.6 10^3/uL (0.2-0.9); Monocytes % 9.5 %; Neutrophils % 45.4 %; Nucleated Red Blood Cells % 0 %; Platelet Count 193 10^3/cmm (130-400); Red Blood Count 3.09 10^6/uL (4.1-5.3); Red Cell Distribution Width 17.8 % (12.1-15.1); White Blood Count 6.6 10^3/uL (4.0-10.0)
[2021-03-12 10:05] LABS: Alanine Aminotransferase 12 U/L (0-33); Albumin Level 3.3 g/dL (3.5-5.2); Alkaline Phosphatase 103 IU/L (35-105); Anion Gap 15.8 (5-19); Aspartate Amino Transferase 23 U/L (0-32); Blood Urea Nitrogen 24 mg/dL (8-23); Calcium 9.5 mg/dL (8.5-10.5); Carbon Dioxide 26 mmol/L (22-29); Chloride 107 mmol/L (98-107); Globulin 3.3 g/dL (1.3-4.6); Glomerular Filtration Rate 83.5 mL/min (90-130); Glucose 89 mg/dL (65-115); Osmolality Calculated 304 mOsm/kg (285-295); Potassium 3.8 mmol/L (3.5-5.1); Sodium 145 mmol/L (136-145); Total Bilirubin 0.9 mg/dL (0.15-1.2); Total Protein 6.6 g/dL (6.6-8.7)
[2021-03-12] MEDS: sodium chloride 0.9% 250 ML 75 ML IV (12:30)
[2021-03-12] MEDS: fulvestrant 250 mg/5 mL Syringe 500 MG IM (13:00)
--- NOTE | 2021-03-12 16:37 | ONC FU_ITS ---
Dr. Benz follow up note Patient: Yenifer Ríos Unit #: [id number]: [id number] Dicatated By: China Benz M.D.Date of Visit:Mar 12, 2021 Onc Med Follow-up/Prog Note History of Present Illness: This is a 65 year old woman who presented with clinical symptoms of umbilical hernia. Preoperative Ca-125 was 255 on 03/12/12. On 03/26/12 she underwent exploratory laparotomy and surgical debulking with total abdominal hysterectomy, bilateral oophorectomies with an block rectosigmoid resection and anastomosis, inguinal lymph node dissection. 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 3/20 lymph nodes were involved. Thus, pathological T3c N1 M1 (abdominal wall) FIGO stage IV. Left sided Port-A-Cath was placed. She was first seen on 04/15/12. Her baseline CT of chest abdomen and pelvis on 04/28/12 showed postoperative changes with seromas, but no evidence of recurrent disease, adenopathy or metastatic lesion. Ca-125 decreased to 74.9. Palliative chemotherapy with Carboplatin AUC of 6 and Paclitaxel 175 mg/m2 for six cycles every 3 weeks was recommenced. The chemotherapy was initiated on 04/28/12, complicated with grade 3 neutropenia without infections requiring further growth factor support. Her restaging CT of the chest abdomen and pelvis on 07/09/12, after 4 cycles of treatment, showed decreased postsurgical fluid collections and no evidence of disease progression. Cycle 6 was completed on 08/11/12. CEA 13.3. After that, patient moved to [place], where, in 2014 she went to [facility] with abnormal left breast mammogram, biopsy confirmed, subsequently underwent neoadjuvant chemotherapy with Taxotere/Herceptin/Perjeta for ER positive SC negative HER-2/eric positive disease followed by bilateral mastectomy which confirmed 8 out of 19 positive lymph node, e.g. yT2, yN2A, ER 94% positive SC 0% HER-2/eric 3+ by FISH stage III followed by Arimidex, and in early 2015 patient developed lesion on the left breast skin, excisional biopsy done on November 23, 2015 showed dermal cutaneous nodule of recurrence IDC of breast, grade 3, main tumor nodule measured 1.5 cm size and does not directly involve the margin. At least one satellite nodule of tumor measuring 0.2 cm in size with extensive lymphatic invasion by tumor including lymphatic channel adjacent to the margin concerning for skin/chest wall recurrence at the left reconstruction site. And brain mets CT PET scan done in January 2017 showed right glenohumeral joint lesion about 2.5 cm, MRI of right shoulder done in March 2017 showed 3.6 x 2.5 x 3.4 cm bone marrow lesion within the medial right humeral head consistent with sclerotic metastatic disease CT-guided biopsy was done which confirmed metastatic carcinoma consistent with breast primary ER positive SC negative HER-2/eric positive patient completed whole brain radiation therapy on on March 28, 2017 follow-up CT brain done in February 2018 showed no brain mets. Patient also had left excisional breast biopsy done in January 2017 showed high-grade IDC with dermal lymphatic invasion ER positive SC negative HER-2/eric positive, at that time she was placed on lapatinib 1250 mg p.o. daily which is used as systemic therapy to target HER-2/eric positive metastatic breast cancer, Faslodex was started on March 25, 2017, Herceptin started on March 20, 2017, Xgeva was started on June 17, 2017, on April 07, 2018 Herceptin and Tykerb was stopped and on April 28, 2018 patient was started on Kadcyla patient was referred to radiation oncology regarding radiation therapy to the right humerus but at that time he was decided to hold off radiation. Follow-up CT PET scan done on July 05 showed response to the treatment follow-up CT scan and bone scan done in November 2018 showed stable disease and follow-up CT scan of brain done on January 19, 2019 showed no brain mets but mild small vessel ischemic changes for which she was referred to neurology. Follow-up CT PET scan done in April 2019 shows stable disease but nonspecific tiny focus of FDG accumulation right third rib for which she was referred to pulmonology to address lung changes seen on CT scan on June 18, 2019 patient had a bone scan done which shows stable disease and her echocardiogram done on June 08, 2019 shows ejection fraction 65 to 70% and her follow-up CT PET scan done in November 2019 shows stable disease then repeat follow-up CT PET scan done on March 21, 2020 shows stable disease On April 06, 2020 patient had TTE which showed ejection fraction 74% Follow-up CT PET scan done in September 2020 shows status post bilateral mastectomy with no focal area of increased activity in the chest abdomen or pelvis to suggest metastatic disease. Stable minimally active fibrotic changes at the lung bases posteriorly most consistent with inflammatory process. New large area of intense activity in the left maxilla which could represent dental process. Stable nonmetabolically active sclerotic lesion at L2 and in the large humeral head. On January 31, 2022 February 03, 2020 patient underwent debridement of necrotic bone left maxilla and bleeding controlled surrounding soft tissue with Dr. Marlo Purvis. Oral surgery. Postop finding were necrotic bone with sharp margins adjacent bleeding granulation tissue. Patient received 2 units of packed RBC. On February 09, 2021 Xgeva was discontinued due to ONJ. While continue with Kadcyla every 3 weeks and Faslodex every 4 weeks History of left lower extremity DVT patient was started on Eliquis on May 28, 2017 and Eliquis was stopped on November 26, 2018. History of skin rash across chest and on left arm seen by dermatology on December 28, 2019 and impression was spider angiomas may be due to underlying metastatic disease or hyper estrogen state versus liver disease from metastatic disease. History of left knee stiffness improved with physical therapy.,'s history of slightly elevated bilirubin around one-point being observed. History of hypoxia, VQ scan done on March 13, 2020 was normal study no history of PE., Stroke per patient and daughter patient had a fall on January 15, 2021 which prompted hospital stay and CT scan of head apparently revealed evidence of stroke she was started on baby aspirin and Lipitor with improvement to mental clarity On January 26, 2021 VQ scan lung shows no evidence of pulmonary embolism Patient has moved to [place] and now here to establish care. Denies any specific complaints, no fever chills, no nausea or vomiting, no diarrhea or constipation, only mild lower extremity edema, as per patient she traveled via car from [place] to [place] recently may have caused this edema. Denies any lower extremity pain denies any new bony pain denies any headaches blurred vision or double vision denies any shortness of breath or chest pain or palpitation. CT PET scan done on March 03, 2021 showed negative for active malignancy, sterilized osseous metastatic disease Echocardiogram done on February 25, 2021 showed ejection fraction 55 to 60% Came for follow-up, as per patient she was admitted to hospital on February 25, 2021 with expressive aphasia as her NIH score was 3, she was deemed not a TPA candidate and CT scan of head was unremarkable, she was admitted to telemetry floor to rule out A. fib, carotid Doppler and dual antiplatelet therapy was started and CBC done during admission shows hemoglobin was 6.8 g, as per daughter it was a lab error as repeat CBC showed hemoglobin was above 8 g. But prior to that patient underwent tooth extraction and required 4 units of packed RBC today, patient denies any specific complaint, no fever chills, no nausea or vomiting, no diarrhea or constipation, no new bony pain, overall feeling better and denies any more episode of expressive aphasia and now scheduled to see Dr. Christensen neurology in the morning Medications: Amoxicillin-Pot Clavulanate 1 Tablet (of 875-125 mg) Oral t.i.d., Aspirin 81 1 Tablet (of 81 mg) Tablet, chewable Oral daily, Atorvastatin Calcium 1 (80 mg) Tablet Oral daily, Calcium Tablet Oral, Clopidogrel Bisulfate 1 (75 mg) Tablet Oral daily, Magnesium 1 Tablet (of 250 mg) Oral daily, MiraLax Powder Oral daily PRN, Pantoprazole Sodium (40 mg) Tablet, enteric coated Oral daily Allergies: Iodinated Contrast Media Review of Systems: Review of Systems is not available for this patient. Vital Signs: Performed on Mar 12, 2021 14:52 Height - 69.00 in Temperature - 98.2 F (LOW) Pulse - 71 /min Respiration - 18 /min BP - 109/67 mm(hg) O2 Sat - 92 % (LOW) Pain - 0 Fatigue - 2 Performance Status: 1 - No physically strenuous activity, but ambulatory and able to carry out light or sedentary work (e.g. office work, light house work). (ECOG) Physical Examination: ENMT - No mouth sores, no thrush, no jaundice, Respiratory - Lungs are clear to auscultation, Cardiovascular - Regular rate and rhythm of heart, Abdomen - Soft, bowel sounds present, Extremities - No visible edema. Lab/Imaging: Most recent lab results are not available for this patient. Impression: Metastatic invasive ductal carcinoma involving brain status post radiation therapy and multiple bone lesions including biopsy-proven right humeral head in March 2017, at that time she was referred to radiation and patient received whole brain radiation therapy and completed on March 28, 2017 but no radiation was considered to right humerus. Earlier patient was diagnosed with left breast cancer in 2014, at that time she underwent neoadjuvant chemotherapy with Taxotere/Herceptin/Perjeta x6 followed by bilateral mastectomy which showed yT2 ,y N2A, MX stage III followed by Arimidex and then in January 2017 she underwent left breast excisional biopsy which showed high-grade IDC with dermal lymphatic invasion ER positive SC negative HER-2/eric positive, at that time she was placed on lapatinib 1250 mg p.o. daily, Faslodex was started on March 25, 2017 and Herceptin was added on March 20, 2017 and Xgeva was started on June 17, 2017, in April 2018 Herceptin and Tykerb was stopped and on April 28, 2018 she was started on Kadcyla every 3 weeks and follow-up scans done in 2017 and then in and in 2019 showed stable disease and the last PET scan done on September 19, 2020 showed status post bilateral mastectomy with no focal area of increased activity in the chest, abdomen or pelvis to suggest metastatic disease. Stable minimal reactive fibrotic changes at the lung bases consistent with inflammatory process. New large area of intense activity in the left maxilla could represent dental process. Stable nonmetabolically active sclerotic lesion at L2 and in the right humeral head. On January 31, 2021 patient underwent debridement of necrotic bone left maxilla and bleeding controlled surrounding soft tissue and patient did require 2 units of packed RBC. Xgeva was discontinued on February 09, 2021 due to ONJ, while continue on 3 weekly Kadcyla and for weekly Faslodex History of left lower extremity DVT started on Eliquis on May 28, 2017 stopped on November 26, 2018. History of mild transaminitis AST 137 on January 31, 2021, being monitored Pancreatic cyst seen on CT scan of chest abdomen pelvis in April 2019, she was referred to pancreaticobiliary surgeon, follow-up was recommended Skin rash across chest and left arm, was evaluated by dermatology on December 28, 2019 and impression was spider angiomas due to underlying metastatic disease or hyper estrogen state or medication Left knee stiffness improved with physical therapy. Slightly elevated bilirubin, being observed. Hypoxia, VQ scan done in March 2020 was normal study, was evaluated by Dr. Ty Trevizo on November 27, 2020 who advised her to use home oxygen to keep O2 saturation more than 89% his impression was patient may have ILD chest x-ray done on February 01, 2021 shows stable interstitial prominence within the periphery of both lungs suggestive of drug-related pneumonitis/fibrosis VQ scan done on January 26, 2021 shows no evidence of pulmonary embolism Patient status post maternal Covid vaccine done in September 1999 21-second dose was given on October 13, 2020 CVA as per patient and daughter patient had a fall on January 15, 2021 for which she was admitted to hospital and had CT scan of the brain which was consistent with stroke and she was started on baby aspirin and Lipitor with improvement to mental clarity. Plan: Discussed with patient regarding her labs white blood count 6.6 hemoglobin 7.9 hematocrit 27.5 platelets 193,000, CMP within normal limits CT PET scan Done on March 03howed no evidence of active malignancy and sterilized osseous metastatic disease, echo shows ejection fraction 55 to 60% Clinically, patient is doing reasonably well with no new signs symptom except recently she was admitted to hospital with new onset of expressive aphasia and was managed medically as she was not a candidate for TPA now her expressive aphasia has resolved and now being evaluated by neurology. As far as breast cancer is concerned, her follow-up CT PET scan shows no evidence of active malignancy, and sterilized osseous metastatic disease, in that case we will continue with Kadcyla along with Faslodex and then repeat her CT PET scan after 3 or 4 cycles and then plan accordingly. E.g. may consider switching her to maintenance therapy with lapatinib while continue with Faslodex, Will proceed with her next dose of Kadcyla/Faslodex today and then she will return to clinic in 2 weeks with CBC CMP and iron studies, if there is a drop in her hemoglobin may consider blood transfusion Signed By: China Benz M.D. <<Signature on File>>
== END 2021-03-12 05:52 | disposition home or self-care (01) ==
LOC: ONCMED 05:54
PROVIDERS: PCP Family Medicine; Visit Provider Internal Medicine Hematology & Oncology
DX: Z51.11 Encounter for antineoplastic chemotherapy (principal); C50.812 Malignant neoplasm of overlapping sites of left female breast; Z17.0 Estrogen receptor positive status [ER+]; C79.31 Secondary malignant neoplasm of brain; C79.51 Secondary malignant neoplasm of bone; Z90.11 Acquired absence of right breast and nipple; Z90.12 Acquired absence of left breast and nipple; Z79.811 Long term (current) use of aromatase inhibitors; Z86.718 Personal history of other venous thrombosis and embolism; Z79.01 Long term (current) use of anticoagulants; L27.1 Localized skin eruption due to drugs and medicaments taken internally; T45.1X5A Adverse effect of antineoplastic and immunosuppressive drugs, initial encounter; R79.89 Other specified abnormal findings of blood chemistry; Z79.899 Other long term (current) drug therapy; Z86.16 Personal history of COVID-19; Z86.73 Personal history of transient ischemic attack (TIA), and cerebral infarction without residual deficits
CPT/HCPCS: 80053; 85025; 96402; 96413; 99215; J7050; J9354; J9395

== ENCOUNTER → 2021-03-13 12:47 | Outpatient (BNVA) | payer MEDICARE, OTHER, SELFPAY | PROVIDERS: PCP Family Medicine; Visit Provider Specialist | DX: F03.90 Unspecified dementia, unspecified severity, without behavioral disturbance, psychotic disturbance, mood disturbance, and anxiety (principal); R26.9 Unspecified abnormalities of gait and mobility; I69.398 Other sequelae of cerebral infarction; Z85.3 Personal history of malignant neoplasm of breast; Z18.10 Retained metal fragments, unspecified | CPT/HCPCS: 99205 ==

== ENCOUNTER 2021-03-26 06:08 | Outpatient (CLI) | payer OTHER, MEDICARE, SELFPAY ==
[2021-03-26 10:18] LABS: Basophils # 0.1 10^3/uL (0.0-0.1); Basophils % 1.8 %; Eosinophils # 0.3 10^3/uL (0.0-0.8); Eosinophils % 4.8 %; Hemoglobin 7.3 g/dL (11.5-15.3); Lymphocytes # 1.9 10^3/uL (0.8-4.8); Lymphocytes % 29.1 %; Mean Corpuscular HGB Conc 29.2 g/dL (30.0-36.0); Mean Corpuscular Hemoglobin 24.8 pg (28.0-34.0); Mean Platelet Volume 10.9 fL (7.4-10.4); Monocytes # 0.8 10^3/uL (0.2-0.9); Monocytes % 11.7 %; Neutrophils # 3.48 10^3/uL (1.8-7.7); Neutrophils % 52.3 %; Nucleated Red Blood Cells % 0 %; Platelet Count 190 10^3/cmm (130-400); Red Blood Count 2.94 10^6/uL (4.1-5.3); Red Cell Distribution Width 17.7 % (12.1-15.1); White Blood Count 6.7 10^3/uL (4.0-10.0)
[2021-03-26 10:36] LABS: Alanine Aminotransferase 23 U/L (0-33); Albumin Level 3.4 g/dL (3.5-5.2); Alkaline Phosphatase 110 IU/L (35-105); Anion Gap 14.4 (5-19); Aspartate Amino Transferase 39 U/L (0-32); Blood Urea Nitrogen 17 mg/dL (8-23); Calcium 9.5 mg/dL (8.5-10.5); Carbon Dioxide 28 mmol/L (22-29); Chloride 102 mmol/L (98-107); Globulin 3.4 g/dL (1.3-4.6); Glomerular Filtration Rate 83.5 mL/min (90-130); Glucose 81 mg/dL (65-115); Osmolality Calculated 293 mOsm/kg (285-295); Potassium 3.4 mmol/L (3.5-5.1); Sodium 141 mmol/L (136-145); Total Bilirubin 0.8 mg/dL (0.15-1.2); Total Protein 6.8 g/dL (6.6-8.7)
--- NOTE | 2021-03-26 16:06 | ONC FU_ITS ---
Dr. Benz follow up note Patient: Yenifer Ríos Unit #: [id number]: 1955 Dicatated By: China Benz M.D.Date of Visit:Mar 26, 2021 Onc Med Follow-up/Prog Note History of Present Illness: This is a 65 year old woman who presented with clinical symptoms of umbilical hernia. Preoperative Ca-125 was 255 on 03/12/12. On 03/26/12 she underwent exploratory laparotomy and surgical debulking with total abdominal hysterectomy, bilateral oophorectomies with an block rectosigmoid resection and anastomosis, inguinal lymph node dissection. 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 3/20 lymph nodes were involved. Thus, pathological T3c N1 M1 (abdominal wall) FIGO stage IV. Left sided Port-A-Cath was placed. She was first seen on 04/15/12. Her baseline CT of chest abdomen and pelvis on 04/28/12 showed postoperative changes with seromas, but no evidence of recurrent disease, adenopathy or metastatic lesion. Ca-125 decreased to 74.9. Palliative chemotherapy with Carboplatin AUC of 6 and Paclitaxel 175 mg/m2 for six cycles every 3 weeks was recommenced. The chemotherapy was initiated on 04/28/12, complicated with grade 3 neutropenia without infections requiring further growth factor support. Her restaging CT of the chest abdomen and pelvis on 07/09/12, after 4 cycles of treatment, showed decreased postsurgical fluid collections and no evidence of disease progression. Cycle 6 was completed on 08/11/12. CEA 13.3. After that, patient moved to [place], where, in 2014 she went to [facility] with abnormal left breast mammogram, biopsy confirmed, subsequently underwent neoadjuvant chemotherapy with Taxotere/Herceptin/Perjeta for ER positive AZ negative HER-2/eric positive disease followed by bilateral mastectomy which confirmed 8 out of 19 positive lymph node, e.g. yT2, yN2A, ER 94% positive AZ 0% HER-2/eric 3+ by FISH stage III followed by Arimidex, and in early 2015 patient developed lesion on the left breast skin, excisional biopsy done on November 23, 2015 showed dermal cutaneous nodule of recurrence IDC of breast, grade 3, main tumor nodule measured 1.5 cm size and does not directly involve the margin. At least one satellite nodule of tumor measuring 0.2 cm in size with extensive lymphatic invasion by tumor including lymphatic channel adjacent to the margin concerning for skin/chest wall recurrence at the left reconstruction site. And brain mets CT PET scan done in January 2017 showed right glenohumeral joint lesion about 2.5 cm, MRI of right shoulder done in March 2017 showed 3.6 x 2.5 x 3.4 cm bone marrow lesion within the medial right humeral head consistent with sclerotic metastatic disease CT-guided biopsy was done which confirmed metastatic carcinoma consistent with breast primary ER positive AZ negative HER-2/eric positive patient completed whole brain radiation therapy on on March 28, 2017 follow-up CT brain done in February 2018 showed no brain mets. Patient also had left excisional breast biopsy done in January 2017 showed high-grade IDC with dermal lymphatic invasion ER positive AZ negative HER-2/eric positive, at that time she was placed on lapatinib 1250 mg p.o. daily which is used as systemic therapy to target HER-2/eric positive metastatic breast cancer, Faslodex was started on March 25, 2017, Herceptin started on March 20, 2017, Xgeva was started on June 17, 2017, on April 07, 2018 Herceptin and Tykerb was stopped and on April 28, 2018 patient was started on Kadcyla patient was referred to radiation oncology regarding radiation therapy to the right humerus but at that time he was decided to hold off radiation. Follow-up CT PET scan done on July 05 showed response to the treatment follow-up CT scan and bone scan done in November 2018 showed stable disease and follow-up CT scan of brain done on January 19, 2019 showed no brain mets but mild small vessel ischemic changes for which she was referred to neurology. Follow-up CT PET scan done in April 2019 shows stable disease but nonspecific tiny focus of FDG accumulation right third rib for which she was referred to pulmonology to address lung changes seen on CT scan on June 18, 2019 patient had a bone scan done which shows stable disease and her echocardiogram done on June 08, 2019 shows ejection fraction 65 to 70% and her follow-up CT PET scan done in November 2019 shows stable disease then repeat follow-up CT PET scan done on March 21, 2020 shows stable disease On April 06, 2020 patient had TTE which showed ejection fraction 74% Follow-up CT PET scan done in September 2020 shows status post bilateral mastectomy with no focal area of increased activity in the chest abdomen or pelvis to suggest metastatic disease. Stable minimally active fibrotic changes at the lung bases posteriorly most consistent with inflammatory process. New large area of intense activity in the left maxilla which could represent dental process. Stable nonmetabolically active sclerotic lesion at L2 and in the large humeral head. On January 31, 2022 February 03, 2020 patient underwent debridement of necrotic bone left maxilla and bleeding controlled surrounding soft tissue with Dr. Marlo Purvis. Oral surgery. Postop finding were necrotic bone with sharp margins adjacent bleeding granulation tissue. Patient received 2 units of packed RBC. On February 09, 2021 Xgeva was discontinued due to ONJ. While continue with Kadcyla every 3 weeks and Faslodex every 4 weeks History of left lower extremity DVT patient was started on Eliquis on May 28, 2017 and Eliquis was stopped on November 26, 2018. History of skin rash across chest and on left arm seen by dermatology on December 28, 2019 and impression was spider angiomas may be due to underlying metastatic disease or hyper estrogen state versus liver disease from metastatic disease. History of left knee stiffness improved with physical therapy.,'s history of slightly elevated bilirubin around one-point being observed. History of hypoxia, VQ scan done on March 13, 2020 was normal study no history of PE., Stroke per patient and daughter patient had a fall on January 15, 2021 which prompted hospital stay and CT scan of head apparently revealed evidence of stroke she was started on baby aspirin and Lipitor with improvement to mental clarity On January 26, 2021 VQ scan lung shows no evidence of pulmonary embolism Patient has moved to [place] and now here to establish care. Denies any specific complaints, no fever chills, no nausea or vomiting, no diarrhea or constipation, only mild lower extremity edema, as per patient she traveled via car from [place] to [place] recently may have caused this edema. Denies any lower extremity pain denies any new bony pain denies any headaches blurred vision or double vision denies any shortness of breath or chest pain or palpitation. CT PET scan done on March 03, 2021 showed negative for active malignancy, sterilized osseous metastatic disease Echocardiogram done on February 25, 2021 showed ejection fraction 55 to 60% Came for follow-up, complaining of generalized weakness and fatigue, and dyspnea on exertion but no chest pain, no palpitation, no headaches blurred vision or double vision, no new bony pains, no fever chills, no melena or hematochezia, no hemoptysis hematemesis, no jaundice, tolerating systemic therapy with Kadcyla/Faslodex well otherwise Medications: Amoxicillin-Pot Clavulanate 1 Tablet (of 875-125 mg) Oral t.i.d., Aspirin 81 1 Tablet (of 81 mg) Tablet, chewable Oral daily, Atorvastatin Calcium 1 (80 mg) Tablet Oral daily, Calcium Tablet Oral, Clopidogrel Bisulfate 1 (75 mg) Tablet Oral daily, Magnesium 1 Tablet (of 250 mg) Oral daily, MiraLax Powder Oral daily PRN, Pantoprazole Sodium (40 mg) Tablet, enteric coated Oral daily Allergies: Iodinated Contrast Media Review of Systems: Review of Systems is not available for this patient. Vital Signs: Performed on Mar 26, 2021 11:23 Height - 69.00 in Weight - 159 lbs (LOW) BSA - 1.87 sq.m BMI - 23.48 Temperature - 98.2 F (LOW) Pulse - 76 /min Respiration - 16 /min BP - 111/61 mm(hg) O2 Sat - 92 % (LOW) Pain - 0 Fatigue - 0 Performance Status: 2 - Ambulatory/capable of all self-care, unable to perform any work activities. Up and about more than 50% of waking hours. (ECOG) Physical Examination: ENMT - No mouth sores, no thrush, no jaundice, Respiratory - Lungs are clear to auscultation, Cardiovascular - Regular rate and rhythm of heart, Abdomen - Soft, bowel sounds present, Extremities - No visible edema. Lab/Imaging: Most recent lab results are not available for this patient. Impression: Metastatic invasive ductal carcinoma involving brain status post radiation therapy and multiple bone lesions including biopsy-proven right humeral head in March 2017, at that time she was referred to radiation and patient received whole brain radiation therapy and completed on March 28, 2017 but no radiation was considered to right humerus. Earlier patient was diagnosed with left breast cancer in 2014, at that time she underwent neoadjuvant chemotherapy with Taxotere/Herceptin/Perjeta x6 followed by bilateral mastectomy which showed yT2 ,y N2A, MX stage III followed by Arimidex and then in January 2017 she underwent left breast excisional biopsy which showed high-grade IDC with dermal lymphatic invasion ER positive [place] negative HER-2/eric positive, at that time she was placed on lapatinib 1250 mg p.o. daily, Faslodex was started on March 25, 2017 and Herceptin was added on March 20, 2017 and Xgeva was started on June 17, 2017, in April 2018 Herceptin and Tykerb was stopped and on April 28, 2018 she was started on Kadcyla every 3 weeks and follow-up scans done in 2017 and then in and in 2019 showed stable disease and the last PET scan done on September 19, 2020 showed status post bilateral mastectomy with no focal area of increased activity in the chest, abdomen or pelvis to suggest metastatic disease. Stable minimal reactive fibrotic changes at the lung bases consistent with inflammatory process. New large area of intense activity in the left maxilla could represent dental process. Stable nonmetabolically active sclerotic lesion at L2 and in the right humeral head. On January 31, 2021 patient underwent debridement of necrotic bone left maxilla and bleeding controlled surrounding soft tissue and patient did require 2 units of packed RBC. Xgeva was discontinued on February 09, 2021 due to ONJ, while continue on 3 weekly Kadcyla and for weekly Faslodex History of left lower extremity DVT started on Eliquis on May 28, 2017 stopped on November 26, 2018. History of mild transaminitis AST 137 on January 31, 2021, being monitored Pancreatic cyst seen on CT scan of chest abdomen pelvis in April 2019, she was referred to pancreaticobiliary surgeon, follow-up was recommended Skin rash across chest and left arm, was evaluated by dermatology on December 28, 2019 and impression was spider angiomas due to underlying metastatic disease or hyper estrogen state or medication Left knee stiffness improved with physical therapy. Slightly elevated bilirubin, being observed. Hypoxia, VQ scan done in March 2020 was normal study, was evaluated by Dr. Ty Trevizo on November 27, 2020 who advised her to use home oxygen to keep O2 saturation more than 89% his impression was patient may have ILD chest x-ray done on February 01, 2021 shows stable interstitial prominence within the periphery of both lungs suggestive of drug-related pneumonitis/fibrosis VQ scan done on January 26, 2021 shows no evidence of pulmonary embolism Patient status post maternal Covid vaccine done in September 1999 21-second dose was given on October 13, 2020 CVA as per patient and daughter patient had a fall on January 15, 2021 for which she was admitted to hospital and had CT scan of the brain which was consistent with stroke and she was started on baby aspirin and Lipitor with improvement to mental clarity. Plan: Discussed with patient regarding her labs white blood count 6.7 hemoglobin 7.3 hematocrit 25 platelets 190,000 CMP within normal limits Clinically, patient is doing reasonably well, now with progressive anemia which is multifactorial, at this point will consider 2 units of packed RBC for symptomatic anemia and then she return to clinic in 1 week with CBC CMP and for next dose of 3 weekly Kadcyla while continue monthly Faslodex. Signed By: China Benz M.D. <<Signature on File>>
[2021-03-27 14:15] VITALS: BP 122/71; PULSE 71; RESP 18; TEMP 36.8; O2SAT 94
== END 2021-03-26 06:09 | disposition home or self-care (01) ==
LOC: ONCMED 06:11
PROVIDERS: PCP Family Medicine; Visit Provider Internal Medicine Hematology & Oncology
DX: C50.912 Malignant neoplasm of unspecified site of left female breast (principal); Z17.0 Estrogen receptor positive status [ER+]; C79.31 Secondary malignant neoplasm of brain; C79.51 Secondary malignant neoplasm of bone; Z79.818 Long term (current) use of other agents affecting estrogen receptors and estrogen levels; Z79.899 Other long term (current) drug therapy; Z79.82 Long term (current) use of aspirin
CPT/HCPCS: 36415; 80053; 85025; 86850; 86900; 86920; 99214

== ENCOUNTER 2021-03-27 06:04 | Outpatient (CLI) | payer OTHER, SELFPAY ==
[2021-03-27] MEDS: diphenhydrAMINE 25 mg Capsule PO (08:40)
[2021-03-27] MEDS: sodium chloride 0.9% 250 ML 999 ML IV (08:40)
[2021-03-27] MEDS: acetaminophen 325 mg Tablet 650 MG PO (08:45)
[2021-03-27] MEDS: FUROsemide 10 mg/mL SDV 2mL 20 MG IV (12:30)
== END 2021-03-27 06:05 | disposition home or self-care (01) ==
PROVIDERS: PCP Family Medicine; Visit Provider Internal Medicine Hematology & Oncology
DX: C50.912 Malignant neoplasm of unspecified site of left female breast (principal); Z17.0 Estrogen receptor positive status [ER+]; C79.51 Secondary malignant neoplasm of bone
CPT/HCPCS: J1940; J7050; P9016

== ENCOUNTER 2021-04-05 05:36 | Outpatient (CLI) | payer MEDICARE, OTHER, SELFPAY ==
[2021-04-05 09:06] LABS: Basophils # 0.1 10^3/uL (0.0-0.1); Eosinophils # 0.3 10^3/uL (0.0-0.8); Eosinophils % 6.1 %; Hematocrit 34.9 % (37.0-47.0); Hemoglobin 10.6 g/dL (11.5-15.3); Lymphocytes # 1.9 10^3/uL (0.8-4.8); Lymphocytes % 34.2 %; Mean Corpuscular HGB Conc 30.4 g/dL (30.0-36.0); Mean Corpuscular Hemoglobin 26.8 pg (28.0-34.0); Mean Corpuscular Volume 88.1 fl (81-99); Mean Platelet Volume 10.5 fL (7.4-10.4); Monocytes # 0.6 10^3/uL (0.2-0.9); Monocytes % 10.5 %; Neutrophils # 2.59 10^3/uL (1.8-7.7); Neutrophils % 46.8 %; Nucleated Red Blood Cells % 0 %; Platelet Count 141 10^3/cmm (130-400); Red Blood Count 3.96 10^6/uL (4.1-5.3); Red Cell Distribution Width 18.6 % (12.1-15.1); White Blood Count 5.5 10^3/uL (4.0-10.0)
[2021-04-05 09:31] LABS: Alanine Aminotransferase 34 U/L (0-33); Albumin Level 3.6 g/dL (3.5-5.2); Alkaline Phosphatase 131 IU/L (35-105); Anion Gap 15.8 (5-19); Aspartate Amino Transferase 61 U/L (0-32); Blood Urea Nitrogen 16 mg/dL (8-23); Calcium 10.1 mg/dL (8.5-10.5); Carbon Dioxide 26 mmol/L (22-29); Chloride 102 mmol/L (98-107); Globulin 3.5 g/dL (1.3-4.6); Glomerular Filtration Rate 99.7 mL/min (90-130); Glucose 77 mg/dL (65-115); Osmolality Calculated 290 mOsm/kg (285-295); Potassium 3.8 mmol/L (3.5-5.1); Sodium 140 mmol/L (136-145); Total Bilirubin 1.3 mg/dL (0.15-1.2); Total Protein 7.1 g/dL (6.6-8.7)
--- NOTE | 2021-04-05 16:00 | ONC FU_ITS ---
Dr. Benz follow up note Patient: Yenifer Ríos Unit #: [id number]: 1955 Dicatated By: China Benz M.D.Date of Visit:Apr 05, 2021 Onc Med Follow-up/Prog Note History of Present Illness: This is a 65 year old woman who presented with clinical symptoms of umbilical hernia. Preoperative Ca-125 was 255 on 03/12/12. On 03/26/12 she underwent exploratory laparotomy and surgical debulking with total abdominal hysterectomy, bilateral oophorectomies with an block rectosigmoid resection and anastomosis, inguinal lymph node dissection. 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 3/20 lymph nodes were involved. Thus, pathological T3c N1 M1 (abdominal wall) FIGO stage IV. Left sided Port-A-Cath was placed. She was first seen on 04/15/12. Her baseline CT of chest abdomen and pelvis on 04/28/12 showed postoperative changes with seromas, but no evidence of recurrent disease, adenopathy or metastatic lesion. Ca-125 decreased to 74.9. Palliative chemotherapy with Carboplatin AUC of 6 and Paclitaxel 175 mg/m2 for six cycles every 3 weeks was recommenced. The chemotherapy was initiated on 04/28/12, complicated with grade 3 neutropenia without infections requiring further growth factor support. Her restaging CT of the chest abdomen and pelvis on 07/09/12, after 4 cycles of treatment, showed decreased postsurgical fluid collections and no evidence of disease progression. Cycle 6 was completed on 08/11/12. CEA 13.3. After that, patient moved to [place], where, in 2014 she went to [facility] with abnormal left breast mammogram, biopsy confirmed, subsequently underwent neoadjuvant chemotherapy with Taxotere/Herceptin/Perjeta for ER positive TX negative HER-2/eric positive disease followed by bilateral mastectomy which confirmed 8 out of 19 positive lymph node, e.g. yT2, yN2A, ER 94% positive TX 0% HER-2/eric 3+ by FISH stage III followed by Arimidex, and in early 2015 patient developed lesion on the left breast skin, excisional biopsy done on November 23, 2015 showed dermal cutaneous nodule of recurrence IDC of breast, grade 3, main tumor nodule measured 1.5 cm size and does not directly involve the margin. At least one satellite nodule of tumor measuring 0.2 cm in size with extensive lymphatic invasion by tumor including lymphatic channel adjacent to the margin concerning for skin/chest wall recurrence at the left reconstruction site. And brain mets CT PET scan done in January 2017 showed right glenohumeral joint lesion about 2.5 cm, MRI of right shoulder done in March 2017 showed 3.6 x 2.5 x 3.4 cm bone marrow lesion within the medial right humeral head consistent with sclerotic metastatic disease CT-guided biopsy was done which confirmed metastatic carcinoma consistent with breast primary ER positive TX negative HER-2/eric positive patient completed whole brain radiation therapy on on March 28, 2017 follow-up CT brain done in February 2018 showed no brain mets. Patient also had left excisional breast biopsy done in January 2017 showed high-grade IDC with dermal lymphatic invasion ER positive TX negative HER-2/eric positive, at that time she was placed on lapatinib 1250 mg p.o. daily which is used as systemic therapy to target HER-2/eric positive metastatic breast cancer, Faslodex was started on March 25, 2017, Herceptin started on March 20, 2017, Xgeva was started on June 17, 2017, on April 07, 2018 Herceptin and Tykerb was stopped and on April 28, 2018 patient was started on Kadcyla patient was referred to radiation oncology regarding radiation therapy to the right humerus but at that time he was decided to hold off radiation. Follow-up CT PET scan done on July 05 showed response to the treatment follow-up CT scan and bone scan done in November 2018 showed stable disease and follow-up CT scan of brain done on January 19, 2019 showed no brain mets but mild small vessel ischemic changes for which she was referred to neurology. Follow-up CT PET scan done in April 2019 shows stable disease but nonspecific tiny focus of FDG accumulation right third rib for which she was referred to pulmonology to address lung changes seen on CT scan on June 18, 2019 patient had a bone scan done which shows stable disease and her echocardiogram done on June 08, 2019 shows ejection fraction 65 to 70% and her follow-up CT PET scan done in November 2019 shows stable disease then repeat follow-up CT PET scan done on March 21, 2020 shows stable disease On April 06, 2020 patient had TTE which showed ejection fraction 74% Follow-up CT PET scan done in September 2020 shows status post bilateral mastectomy with no focal area of increased activity in the chest abdomen or pelvis to suggest metastatic disease. Stable minimally active fibrotic changes at the lung bases posteriorly most consistent with inflammatory process. New large area of intense activity in the left maxilla which could represent dental process. Stable nonmetabolically active sclerotic lesion at L2 and in the large humeral head. On January 31, 2022 February 03, 2020 patient underwent debridement of necrotic bone left maxilla and bleeding controlled surrounding soft tissue with Dr. Marlo Purvis. Oral surgery. Postop finding were necrotic bone with sharp margins adjacent bleeding granulation tissue. Patient received 2 units of packed RBC. On February 09, 2021 Xgeva was discontinued due to ONJ. While continue with Kadcyla every 3 weeks and Faslodex every 4 weeks History of left lower extremity DVT patient was started on Eliquis on May 28, 2017 and Eliquis was stopped on November 26, 2018. History of skin rash across chest and on left arm seen by dermatology on December 28, 2019 and impression was spider angiomas may be due to underlying metastatic disease or hyper estrogen state versus liver disease from metastatic disease. History of left knee stiffness improved with physical therapy.,'s history of slightly elevated bilirubin around one-point being observed. History of hypoxia, VQ scan done on March 13, 2020 was normal study no history of PE., Stroke per patient and daughter patient had a fall on January 15, 2021 which prompted hospital stay and CT scan of head apparently revealed evidence of stroke she was started on baby aspirin and Lipitor with improvement to mental clarity On January 26, 2021 VQ scan lung shows no evidence of pulmonary embolism Patient has moved to [place] and now here to establish care. Denies any specific complaints, no fever chills, no nausea or vomiting, no diarrhea or constipation, only mild lower extremity edema, as per patient she traveled via car from [place] to [place] recently may have caused this edema. Denies any lower extremity pain denies any new bony pain denies any headaches blurred vision or double vision denies any shortness of breath or chest pain or palpitation. CT PET scan done on March 03, 2021 showed negative for active malignancy, sterilized osseous metastatic disease Echocardiogram done on February 25, 2021 showed ejection fraction 55 to 60% Came for follow-up, denies any specific complaints, no fever chills, no nausea or vomiting, no diarrhea constipation, more energetic since blood transfusion, no jaundice, no abdominal pain, no hemoptysis or hematemesis, no worsening of mild peripheral neuropathy, tolerating Kadcyla/Faslodex well otherwise Medications: Amoxicillin-Pot Clavulanate 1 Tablet (of 875-125 mg) Oral t.i.d., Aspirin 81 1 Tablet (of 81 mg) Tablet, chewable Oral daily, Atorvastatin Calcium 1 (80 mg) Tablet Oral daily, Calcium Tablet Oral, Clopidogrel Bisulfate 1 (75 mg) Tablet Oral daily, Magnesium 1 Tablet (of 250 mg) Oral daily, MiraLax Powder Oral daily PRN, Pantoprazole Sodium (40 mg) Tablet, enteric coated Oral daily Allergies: Iodinated Contrast Media Review of Systems: Review of Systems is not available for this patient. Vital Signs: Performed on Apr 05, 2021 10:38 Height - 69.00 in Temperature - 97.4 F (LOW) Pulse - 77 /min Respiration - 18 /min BP - 131/74 mm(hg) O2 Sat - 92 % (LOW) Pain - 0 Fatigue - 0 Performance Status: 1 - No physically strenuous activity, but ambulatory and able to carry out light or sedentary work (e.g. office work, light house work). (ECOG) Physical Examination: ENMT - No mouth sores, no thrush, no jaundice, Respiratory - Lungs are clear to auscultation, Cardiovascular - Regular rate and rhythm of heart, Abdomen - Soft, bowel sounds present, Extremities - No visible edema. Lab/Imaging: Most recent lab results are not available for this patient. Impression: Metastatic invasive ductal carcinoma involving brain status post radiation therapy and multiple bone lesions including biopsy-proven right humeral head in March 2017, at that time she was referred to radiation and patient received whole brain radiation therapy and completed on March 28, 2017 but no radiation was considered to right humerus. Earlier patient was diagnosed with left breast cancer in 2014, at that time she underwent neoadjuvant chemotherapy with Taxotere/Herceptin/Perjeta x6 followed by bilateral mastectomy which showed yT2 ,y N2A, MX stage III followed by Arimidex and then in January 2017 she underwent left breast excisional biopsy which showed high-grade IDC with dermal lymphatic invasion ER positive TX negative HER-2/eric positive, at that time she was placed on lapatinib 1250 mg p.o. daily, Faslodex was started on March 25, 2017 and Herceptin was added on March 20, 2017 and Xgeva was started on June 17, 2017, in April 2018 Herceptin and Tykerb was stopped and on April 28, 2018 she was started on Kadcyla every 3 weeks and follow-up scans done in 2017 and then in and in 2019 showed stable disease and the last PET scan done on September 19, 2020 showed status post bilateral mastectomy with no focal area of increased activity in the chest, abdomen or pelvis to suggest metastatic disease. Stable minimal reactive fibrotic changes at the lung bases consistent with inflammatory process. New large area of intense activity in the left maxilla could represent dental process. Stable nonmetabolically active sclerotic lesion at L2 and in the right humeral head. On January 31, 2021 patient underwent debridement of necrotic bone left maxilla and bleeding controlled surrounding soft tissue and patient did require 2 units of packed RBC. Xgeva was discontinued on February 09, 2021 due to ONJ, while continue on 3 weekly Kadcyla and for weekly Faslodex History of left lower extremity DVT started on Eliquis on May 28, 2017 stopped on November 26, 2018. History of mild transaminitis AST 137 on January 31, 2021, being monitored Pancreatic cyst seen on CT scan of chest abdomen pelvis in April 2019, she was referred to pancreaticobiliary surgeon, follow-up was recommended Skin rash across chest and left arm, was evaluated by dermatology on December 28, 2019 and impression was spider angiomas due to underlying metastatic disease or hyper estrogen state or medication Left knee stiffness improved with physical therapy. Slightly elevated bilirubin, being observed. Hypoxia, VQ scan done in March 2020 was normal study, was evaluated by Dr. Ty Trevizo on November 27, 2020 who advised her to use home oxygen to keep O2 saturation more than 89% his impression was patient may have ILD chest x-ray done on February 01, 2021 shows stable interstitial prominence within the periphery of both lungs suggestive of drug-related pneumonitis/fibrosis VQ scan done on January 26, 2021 shows no evidence of pulmonary embolism Patient status post maternal Covid vaccine done in September 1999 21-second dose was given on October 13, 2020 CVA as per patient and daughter patient had a fall on January 15, 2021 for which she was admitted to hospital and had CT scan of the brain which was consistent with stroke and she was started on baby aspirin and Lipitor with improvement to mental clarity. Plan: Discussed with patient regarding her labs white blood count 5.5 hemoglobin 10.6 g compared to 7.3 g previously, prior to blood transfusion hematocrit 34.9 platelets 141,000 CMP within normal limits except ALT 34 normal being less than 33 AST 61 normal being less than 32 bilirubin 1.3 compared to 0.8 previously alk phos 131 compared to 110 previously Clinically, patient doing well with no new signs symptoms just of disease progression, will proceed with next 3 weekly dose of Kadcyla today and then she will return to clinic in 1 week with CBC CMP and for monthly dose of Faslodex As far as mildly elevated bilirubin and AST ALT is concerned could be due to recent blood transfusion, will monitor, if there is a worsening, will consider right upper quadrant sonogram. Otherwise will consider follow-up CT PET scan after next cycle of Kadcyla. Signed By: China Benz M.D. <<Signature on File>>
== END 2021-04-05 05:37 | disposition home or self-care (01) ==
LOC: ONCMED 05:37
PROVIDERS: PCP Family Medicine; Visit Provider Internal Medicine Hematology & Oncology
DX: Z51.11 Encounter for antineoplastic chemotherapy (principal); C79.51 Secondary malignant neoplasm of bone; C79.31 Secondary malignant neoplasm of brain; C50.912 Malignant neoplasm of unspecified site of left female breast; Z79.899 Other long term (current) drug therapy
CPT/HCPCS: 80053; 85025; 96365; 99215; J7050; J9354

== ENCOUNTER 2021-04-12 05:59 | Outpatient (CLI) | payer MEDICARE, OTHER, SELFPAY ==
[2021-04-12 09:52] LABS: Hematocrit 32.8 % (37.0-47.0); Hemoglobin 10.1 g/dL (11.5-15.3); Mean Corpuscular HGB Conc 30.8 g/dL (30.0-36.0); Mean Corpuscular Hemoglobin 27.1 pg (28.0-34.0); Mean Corpuscular Volume 87.9 fl (81-99); Mean Platelet Volume 10.8 fL (7.4-10.4); Platelet Count 146 10^3/cmm (130-400); Red Blood Count 3.73 10^6/uL (4.1-5.3); Red Cell Distribution Width 19.4 % (12.1-15.1); White Blood Count 5.8 10^3/uL (4.0-10.0)
[2021-04-12 09:58] LABS: Alanine Aminotransferase 40 U/L (0-33); Albumin Level 3.4 g/dL (3.5-5.2); Alkaline Phosphatase 152 IU/L (35-105); Anion Gap 14.2 (5-19); Aspartate Amino Transferase 52 U/L (0-32); Blood Urea Nitrogen 16 mg/dL (8-23); Carbon Dioxide 26 mmol/L (22-29); Chloride 99 mmol/L (98-107); Globulin 3.9 g/dL (1.3-4.6); Glomerular Filtration Rate 83.5 mL/min (90-130); Glucose 160 mg/dL (65-115); Osmolality Calculated 287 mOsm/kg (285-295); Potassium 3.2 mmol/L (3.5-5.1); Sodium 136 mmol/L (136-145); Total Bilirubin 1.1 mg/dL (0.15-1.2); Total Protein 7.3 g/dL (6.6-8.7)
[2021-04-12 10:42] LABS: Absolute Neutrophil 3.1 10^3/cmm (1.4-6.5); Absolute Segmented Neutrophil 3.1 10/cmm (1.6-7.1); Eosinophils 0 %; Lymphocytes 39 %; Lymphocytes Absolute 2.3 10^3/cmm (1.2-3.4); Monocytes Absolute 0.5 10^3/cmm (0.1-0.6); Platelet Estimate Normal (Normal); Segmented Neutrophils 53 %; Total Cells Counted 100 (0-100)
[2021-04-12] MEDS: fulvestrant 250 mg/5 mL Syringe 500 MG IM (11:10)
--- NOTE | 2021-04-13 12:56 | ONC FU_ITS ---
Dr. Benz follow up note Patient: Yenifer Ríos Unit #: [id number]: [id number] Dicatated By: China Benz M.D.Date of Visit:Apr 12, 2021 Onc Med Follow-up/Prog Note History of Present Illness: This is a 65 year old woman who presented with clinical symptoms of umbilical hernia. Preoperative Ca-125 was 255 on 03/12/12. On 03/26/12 she underwent exploratory laparotomy and surgical debulking with total abdominal hysterectomy, bilateral oophorectomies with an block rectosigmoid resection and anastomosis, inguinal lymph node dissection. 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 3/20 lymph nodes were involved. Thus, pathological T3c N1 M1 (abdominal wall) FIGO stage IV. Left sided Port-A-Cath was placed. She was first seen on 04/15/12. Her baseline CT of chest abdomen and pelvis on 04/28/12 showed postoperative changes with seromas, but no evidence of recurrent disease, adenopathy or metastatic lesion. Ca-125 decreased to 74.9. Palliative chemotherapy with Carboplatin AUC of 6 and Paclitaxel 175 mg/m2 for six cycles every 3 weeks was recommenced. The chemotherapy was initiated on 04/28/12, complicated with grade 3 neutropenia without infections requiring further growth factor support. Her restaging CT of the chest abdomen and pelvis on 07/09/12, after 4 cycles of treatment, showed decreased postsurgical fluid collections and no evidence of disease progression. Cycle 6 was completed on 08/11/12. CEA 13.3. After that, patient moved to [place], where, in 2014 she went to [facility] with abnormal left breast mammogram, biopsy confirmed, subsequently underwent neoadjuvant chemotherapy with Taxotere/Herceptin/Perjeta for ER positive NM negative HER-2/eric positive disease followed by bilateral mastectomy which confirmed 8 out of 19 positive lymph node, e.g. yT2, yN2A, ER 94% positive NM 0% HER-2/eric 3+ by FISH stage III followed by Arimidex, and in early 2015 patient developed lesion on the left breast skin, excisional biopsy done on November 23, 2015 showed dermal cutaneous nodule of recurrence IDC of breast, grade 3, main tumor nodule measured 1.5 cm size and does not directly involve the margin. At least one satellite nodule of tumor measuring 0.2 cm in size with extensive lymphatic invasion by tumor including lymphatic channel adjacent to the margin concerning for skin/chest wall recurrence at the left reconstruction site. And brain mets CT PET scan done in January 2017 showed right glenohumeral joint lesion about 2.5 cm, MRI of right shoulder done in March 2017 showed 3.6 x 2.5 x 3.4 cm bone marrow lesion within the medial right humeral head consistent with sclerotic metastatic disease CT-guided biopsy was done which confirmed metastatic carcinoma consistent with breast primary ER positive NM negative HER-2/eric positive patient completed whole brain radiation therapy on on March 28, 2017 follow-up CT brain done in February 2018 showed no brain mets. Patient also had left excisional breast biopsy done in January 2017 showed high-grade IDC with dermal lymphatic invasion ER positive NM negative HER-2/eric positive, at that time she was placed on lapatinib 1250 mg p.o. daily which is used as systemic therapy to target HER-2/eric positive metastatic breast cancer, Faslodex was started on March 25, 2017, Herceptin started on March 20, 2017, Xgeva was started on June 17, 2017, on April 07, 2018 Herceptin and Tykerb was stopped and on April 28, 2018 patient was started on Kadcyla patient was referred to radiation oncology regarding radiation therapy to the right humerus but at that time he was decided to hold off radiation. Follow-up CT PET scan done on July 05 showed response to the treatment follow-up CT scan and bone scan done in November 2018 showed stable disease and follow-up CT scan of brain done on January 19, 2019 showed no brain mets but mild small vessel ischemic changes for which she was referred to neurology. Follow-up CT PET scan done in April 2019 shows stable disease but nonspecific tiny focus of FDG accumulation right third rib for which she was referred to pulmonology to address lung changes seen on CT scan on June 18, 2019 patient had a bone scan done which shows stable disease and her echocardiogram done on June 08, 2019 shows ejection fraction 65 to 70% and her follow-up CT PET scan done in November 2019 shows stable disease then repeat follow-up CT PET scan done on March 21, 2020 shows stable disease On April 06, 2020 patient had TTE which showed ejection fraction 74% Follow-up CT PET scan done in September 2020 shows status post bilateral mastectomy with no focal area of increased activity in the chest abdomen or pelvis to suggest metastatic disease. Stable minimally active fibrotic changes at the lung bases posteriorly most consistent with inflammatory process. New large area of intense activity in the left maxilla which could represent dental process. Stable nonmetabolically active sclerotic lesion at L2 and in the large humeral head. On January 31, 2022 February 03, 2020 patient underwent debridement of necrotic bone left maxilla and bleeding controlled surrounding soft tissue with Dr. Marlo Purvis. Oral surgery. Postop finding were necrotic bone with sharp margins adjacent bleeding granulation tissue. Patient received 2 units of packed RBC. On February 09, 2021 Xgeva was discontinued due to ONJ. While continue with Kadcyla every 3 weeks and Faslodex every 4 weeks History of left lower extremity DVT patient was started on Eliquis on May 28, 2017 and Eliquis was stopped on November 26, 2018. History of skin rash across chest and on left arm seen by dermatology on December 28, 2019 and impression was spider angiomas may be due to underlying metastatic disease or hyper estrogen state versus liver disease from metastatic disease. History of left knee stiffness improved with physical therapy.,'s history of slightly elevated bilirubin around one-point being observed. History of hypoxia, VQ scan done on March 13, 2020 was normal study no history of PE., Stroke per patient and daughter patient had a fall on January 15, 2021 which prompted hospital stay and CT scan of head apparently revealed evidence of stroke she was started on baby aspirin and Lipitor with improvement to mental clarity On January 26, 2021 VQ scan lung shows no evidence of pulmonary embolism Patient has moved to [place] and now here to establish care. Denies any specific complaints, no fever chills, no nausea or vomiting, no diarrhea or constipation, only mild lower extremity edema, as per patient she traveled via car from [place] to [place] recently may have caused this edema. Denies any lower extremity pain denies any new bony pain denies any headaches blurred vision or double vision denies any shortness of breath or chest pain or palpitation. CT PET scan done on March 03, 2021 showed negative for active malignancy, sterilized osseous metastatic disease Echocardiogram done on February 25, 2021 showed ejection fraction 55 to 60% Came for follow-up, denies any specific complaints, no fever chills, no nausea or vomiting, no diarrhea or constipation, tolerated Kadcyla well which was given last week, no jaundice, no abdominal pain, no melena or hematochezia, no hemoptysis hematemesis, overall feeling well Medications: Amoxicillin-Pot Clavulanate 1 Tablet (of 875-125 mg) Oral t.i.d., Aspirin 81 1 Tablet (of 81 mg) Tablet, chewable Oral daily, Atorvastatin Calcium 1 (80 mg) Tablet Oral daily, Calcium Tablet Oral, Clopidogrel Bisulfate 1 (75 mg) Tablet Oral daily, Magnesium 1 Tablet (of 250 mg) Oral daily, MiraLax Powder Oral daily PRN, Pantoprazole Sodium (40 mg) Tablet, enteric coated Oral daily Allergies: Iodinated Contrast Media Review of Systems: Review of Systems is not available for this patient. Vital Signs: Performed on Apr 12, 2021 10:15 Height - 69.00 in Temperature - 97.8 F (LOW) Pulse - 81 /min Respiration - 18 /min BP - 109/61 mm(hg) O2 Sat - 90 % (LOW) Pain - 0 Performance Status: 1 - No physically strenuous activity, but ambulatory and able to carry out light or sedentary work (e.g. office work, light house work). (ECOG) Physical Examination: ENMT - No mouth sores, no thrush, no jaundice, Respiratory - Lungs are clear to auscultation, Cardiovascular - Regular rate and rhythm of heart, Abdomen - Soft, bowel sounds present, Extremities - Trace edema. Lab/Imaging: Most recent lab results are not available for this patient. Impression: Metastatic invasive ductal carcinoma involving brain status post radiation therapy and multiple bone lesions including biopsy-proven right humeral head in March 2017, at that time she was referred to radiation and patient received whole brain radiation therapy and completed on March 28, 2017 but no radiation was considered to right humerus. Earlier patient was diagnosed with left breast cancer in 2014, at that time she underwent neoadjuvant chemotherapy with Taxotere/Herceptin/Perjeta x6 followed by bilateral mastectomy which showed yT2 ,y N2A, MX stage III followed by Arimidex and then in January 2017 she underwent left breast excisional biopsy which showed high-grade IDC with dermal lymphatic invasion ER positive NM negative HER-2/eric positive, at that time she was placed on lapatinib 1250 mg p.o. daily, Faslodex was started on March 25, 2017 and Herceptin was added on March 20, 2017 and Xgeva was started on June 17, 2017, in April 2018 Herceptin and Tykerb was stopped and on April 28, 2018 she was started on Kadcyla every 3 weeks and follow-up scans done in 2017 and then in and in 2019 showed stable disease and the last PET scan done on September 19, 2020 showed status post bilateral mastectomy with no focal area of increased activity in the chest, abdomen or pelvis to suggest metastatic disease. Stable minimal reactive fibrotic changes at the lung bases consistent with inflammatory process. New large area of intense activity in the left maxilla could represent dental process. Stable nonmetabolically active sclerotic lesion at L2 and in the right humeral head. On January 31, 2021 patient underwent debridement of necrotic bone left maxilla and bleeding controlled surrounding soft tissue and patient did require 2 units of packed RBC. Xgeva was discontinued on February 09, 2021 due to ONJ, while continue on 3 weekly Kadcyla and for weekly Faslodex History of left lower extremity DVT started on Eliquis on May 28, 2017 stopped on November 26, 2018. History of mild transaminitis AST 137 on January 31, 2021, being monitored Pancreatic cyst seen on CT scan of chest abdomen pelvis in April 2019, she was referred to pancreaticobiliary surgeon, follow-up was recommended Skin rash across chest and left arm, was evaluated by dermatology on December 28, 2019 and impression was spider angiomas due to underlying metastatic disease or hyper estrogen state or medication Left knee stiffness improved with physical therapy. Slightly elevated bilirubin, being observed. Hypoxia, VQ scan done in March 2020 was normal study, was evaluated by Dr. Ty Trevizo on November 27, 2020 who advised her to use home oxygen to keep O2 saturation more than 89% his impression was patient may have ILD chest x-ray done on February 01, 2021 shows stable interstitial prominence within the periphery of both lungs suggestive of drug-related pneumonitis/fibrosis VQ scan done on January 26, 2021 shows no evidence of pulmonary embolism Patient status post maternal Covid vaccine done in September 1999 21-second dose was given on October 13, 2020 CVA as per patient and daughter patient had a fall on January 15, 2021 for which she was admitted to hospital and had CT scan of the brain which was consistent with stroke and she was started on baby aspirin and Lipitor with improvement to mental clarity. Plan: Discussed with patient regarding her labs white blood count 5.8 hemoglobin 10.1 g hematocrit 32.8 platelets 146,000 CMP within normal limit except potassium 3.2 and AST 52 compared to 61 previously ALT 40 compared to 34 previously bilirubin 1.1 compared to 1.3 previously, alk phos 152 compared to 131 previously Clinically, patient is doing well with no new signs symptoms tolerating systemic therapy with Kadcyla/Faslodex well, patient is due for her monthly dose of Faslodex today so we will proceed with that and then she will return to clinic in 2 weeks with CBC CMP and if reasonable for next dose of Kadcyla. As far as hypokalemia is concerned, we will consider his potassium supplement As far as mildly abnormal LFTs concerned, stable we will continue to monitor if there is a worsening, will consider right upper quadrant sonogram otherwise follow-up CT PET scan after next dose of Kadcyla. Signed By: China Benz M.D. <<Signature on File>>
== END 2021-04-12 06:00 | disposition home or self-care (01) ==
LOC: ONCMED 05:59
PROVIDERS: PCP Family Medicine; Visit Provider Internal Medicine Hematology & Oncology
DX: C79.51 Secondary malignant neoplasm of bone (principal); C50.911 Malignant neoplasm of unspecified site of right female breast; Z17.0 Estrogen receptor positive status [ER+]; E87.6 Hypokalemia; R79.0 Abnormal level of blood mineral; Z86.718 Personal history of other venous thrombosis and embolism; Z86.73 Personal history of transient ischemic attack (TIA), and cerebral infarction without residual deficits; Z79.899 Other long term (current) drug therapy; Z79.82 Long term (current) use of aspirin; Z79.818 Long term (current) use of other agents affecting estrogen receptors and estrogen levels
CPT/HCPCS: 36415; 80053; 85007; 85027; 96402; 99215; J9395

== ENCOUNTER 2021-04-26 09:27 | Outpatient (CLI) | payer MEDICARE, OTHER, SELFPAY ==
[2021-04-26 10:12] LABS: Basophils # 0.1 10^3/uL (0.0-0.1); Basophils % 2.5 %; Eosinophils # 0.4 10^3/uL (0.0-0.8); Eosinophils % 7.8 %; Hematocrit 34.1 % (37.0-47.0); Hemoglobin 10.6 g/dL (11.5-15.3); Lymphocytes # 2.1 10^3/uL (0.8-4.8); Lymphocytes % 39.2 %; Mean Corpuscular HGB Conc 31.1 g/dL (30.0-36.0); Mean Corpuscular Hemoglobin 27.7 pg (28.0-34.0); Mean Platelet Volume 11.3 fL (7.4-10.4); Monocytes # 0.6 10^3/uL (0.2-0.9); Monocytes % 10.6 %; Neutrophils % 39.7 %; Nucleated Red Blood Cells % 0 %; Platelet Count 165 10^3/cmm (130-400); Red Blood Count 3.83 10^6/uL (4.1-5.3); White Blood Count 5.3 10^3/uL (4.0-10.0)
[2021-04-26 10:40] LABS: Alanine Aminotransferase 28 U/L (0-33); Albumin Level 3.6 g/dL (3.5-5.2); Alkaline Phosphatase 136 IU/L (35-105); Anion Gap 12.7 (5-19); Aspartate Amino Transferase 37 U/L (0-32); Blood Urea Nitrogen 23 mg/dL (8-23); Calcium 10.2 mg/dL (8.5-10.5); Carbon Dioxide 27 mmol/L (22-29); Chloride 105 mmol/L (98-107); Globulin 3.9 g/dL (1.3-4.6); Glomerular Filtration Rate 83.5 mL/min (90-130); Glucose 102 mg/dL (65-115); Osmolality Calculated 296 mOsm/kg (285-295); Potassium 3.7 mmol/L (3.5-5.1); Sodium 141 mmol/L (136-145); Total Bilirubin 1.1 mg/dL (0.15-1.2); Total Protein 7.5 g/dL (6.6-8.7)
[2021-04-26] MEDS: sodium chloride 0.9% 250 ML 210 ML IV (12:05)
--- NOTE | 2021-04-26 16:38 | ONC FU_ITS ---
Dr. Benz follow up note Patient: Yenifer Ríos Unit #: [id number]: 1955 Dicatated By: China Benz M.D.Date of Visit:Apr 26, 2021 Onc Med Follow-up/Prog Note History of Present Illness: This is a 65 year old woman who presented with clinical symptoms of umbilical hernia. Preoperative Ca-125 was 255 on 03/12/12. On 03/26/12 she underwent exploratory laparotomy and surgical debulking with total abdominal hysterectomy, bilateral oophorectomies with an block rectosigmoid resection and anastomosis, inguinal lymph node dissection. 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 3/20 lymph nodes were involved. Thus, pathological T3c N1 M1 (abdominal wall) FIGO stage IV. Left sided Port-A-Cath was placed. She was first seen on 04/15/12. Her baseline CT of chest abdomen and pelvis on 04/28/12 showed postoperative changes with seromas, but no evidence of recurrent disease, adenopathy or metastatic lesion. Ca-125 decreased to 74.9. Palliative chemotherapy with Carboplatin AUC of 6 and Paclitaxel 175 mg/m2 for six cycles every 3 weeks was recommenced. The chemotherapy was initiated on 04/28/12, complicated with grade 3 neutropenia without infections requiring further growth factor support. Her restaging CT of the chest abdomen and pelvis on 07/09/12, after 4 cycles of treatment, showed decreased postsurgical fluid collections and no evidence of disease progression. Cycle 6 was completed on 08/11/12. CEA 13.3. After that, patient moved to [place], where, in 2014 she went to [facility] with abnormal left breast mammogram, biopsy confirmed, subsequently underwent neoadjuvant chemotherapy with Taxotere/Herceptin/Perjeta for ER positive ND negative HER-2/eric positive disease followed by bilateral mastectomy which confirmed 8 out of 19 positive lymph node, e.g. yT2, yN2A, ER 94% positive ND 0% HER-2/eric 3+ by FISH stage III followed by Arimidex, and in early 2015 patient developed lesion on the left breast skin, excisional biopsy done on November 23, 2015 showed dermal cutaneous nodule of recurrence IDC of breast, grade 3, main tumor nodule measured 1.5 cm size and does not directly involve the margin. At least one satellite nodule of tumor measuring 0.2 cm in size with extensive lymphatic invasion by tumor including lymphatic channel adjacent to the margin concerning for skin/chest wall recurrence at the left reconstruction site. And brain mets CT PET scan done in January 2017 showed right glenohumeral joint lesion about 2.5 cm, MRI of right shoulder done in March 2017 showed 3.6 x 2.5 x 3.4 cm bone marrow lesion within the medial right humeral head consistent with sclerotic metastatic disease CT-guided biopsy was done which confirmed metastatic carcinoma consistent with breast primary ER positive ND negative HER-2/eric positive patient completed whole brain radiation therapy on on March 28, 2017 follow-up CT brain done in February 2018 showed no brain mets. Patient also had left excisional breast biopsy done in January 2017 showed high-grade IDC with dermal lymphatic invasion ER positive ND negative HER-2/eric positive, at that time she was placed on lapatinib 1250 mg p.o. daily which is used as systemic therapy to target HER-2/eric positive metastatic breast cancer, Faslodex was started on March 25, 2017, Herceptin started on March 20, 2017, Xgeva was started on June 17, 2017, on April 07, 2018 Herceptin and Tykerb was stopped and on April 28, 2018 patient was started on Kadcyla patient was referred to radiation oncology regarding radiation therapy to the right humerus but at that time he was decided to hold off radiation. Follow-up CT PET scan done on July 05 showed response to the treatment follow-up CT scan and bone scan done in November 2018 showed stable disease and follow-up CT scan of brain done on January 19, 2019 showed no brain mets but mild small vessel ischemic changes for which she was referred to neurology. Follow-up CT PET scan done in April 2019 shows stable disease but nonspecific tiny focus of FDG accumulation right third rib for which she was referred to pulmonology to address lung changes seen on CT scan on June 18, 2019 patient had a bone scan done which shows stable disease and her echocardiogram done on June 08, 2019 shows ejection fraction 65 to 70% and her follow-up CT PET scan done in November 2019 shows stable disease then repeat follow-up CT PET scan done on March 21, 2020 shows stable disease On April 06, 2020 patient had TTE which showed ejection fraction 74% Follow-up CT PET scan done in September 2020 shows status post bilateral mastectomy with no focal area of increased activity in the chest abdomen or pelvis to suggest metastatic disease. Stable minimally active fibrotic changes at the lung bases posteriorly most consistent with inflammatory process. New large area of intense activity in the left maxilla which could represent dental process. Stable nonmetabolically active sclerotic lesion at L2 and in the large humeral head. On January 31, 2022 February 03, 2020 patient underwent debridement of necrotic bone left maxilla and bleeding controlled surrounding soft tissue with Dr. Marlo Purvis. Oral surgery. Postop finding were necrotic bone with sharp margins adjacent bleeding granulation tissue. Patient received 2 units of packed RBC. On February 09, 2021 Xgeva was discontinued due to ONJ. While continue with Kadcyla every 3 weeks and Faslodex every 4 weeks History of left lower extremity DVT patient was started on Eliquis on May 28, 2017 and Eliquis was stopped on November 26, 2018. History of skin rash across chest and on left arm seen by dermatology on December 28, 2019 and impression was spider angiomas may be due to underlying metastatic disease or hyper estrogen state versus liver disease from metastatic disease. History of left knee stiffness improved with physical therapy.,'s history of slightly elevated bilirubin around one-point being observed. History of hypoxia, VQ scan done on March 13, 2020 was normal study no history of PE., Stroke per patient and daughter patient had a fall on January 15, 2021 which prompted hospital stay and CT scan of head apparently revealed evidence of stroke she was started on baby aspirin and Lipitor with improvement to mental clarity On January 26, 2021 VQ scan lung shows no evidence of pulmonary embolism Patient has moved to [place] and now here to establish care. Denies any specific complaints, no fever chills, no nausea or vomiting, no diarrhea or constipation, only mild lower extremity edema, as per patient she traveled via car from [place] to [place] recently may have caused this edema. Denies any lower extremity pain denies any new bony pain denies any headaches blurred vision or double vision denies any shortness of breath or chest pain or palpitation. CT PET scan done on March 03, 2021 showed negative for active malignancy, sterilized osseous metastatic disease Echocardiogram done on February 25, 2021 showed ejection fraction 55 to 60% Came for follow-up, denies any specific complaints, no fever chills, no nausea or vomiting, no diarrhea or constipation, no melena hematochezia, no shortness of breath or chest pain, no new bony pains, no jaundice, tolerating Kadcyla/Faslodex well Medications: Amoxicillin-Pot Clavulanate 1 Tablet (of 875-125 mg) Oral t.i.d., Aspirin 81 1 Tablet (of 81 mg) Tablet, chewable Oral daily, Atorvastatin Calcium 1 (80 mg) Tablet Oral daily, Calcium Tablet Oral, Clopidogrel Bisulfate 1 (75 mg) Tablet Oral daily, Magnesium 1 Tablet (of 250 mg) Oral daily, MiraLax Powder Oral daily PRN, Pantoprazole Sodium (40 mg) Tablet, enteric coated Oral daily Allergies: Iodinated Contrast Media Review of Systems: Review of Systems is not available for this patient. Vital Signs: Performed on Apr 26, 2021 10:50 Height - 69.00 in Temperature - 97.3 F (LOW) Pulse - 80 /min Respiration - 18 /min BP - 130/84 mm(hg) O2 Sat - 93 % (LOW) Pain - 0 Performance Status: 1 - No physically strenuous activity, but ambulatory and able to carry out light or sedentary work (e.g. office work, light house work). (ECOG) Physical Examination: ENMT - No mouth sores, no thrush, no jaundice, Respiratory - Lungs are clear to auscultation, Cardiovascular - Regular rate and rhythm of heart, Abdomen - Soft, bowel sounds present, Extremities - No visible edema. Lab/Imaging: Most recent lab results are not available for this patient. Impression: Metastatic invasive ductal carcinoma involving brain status post radiation therapy and multiple bone lesions including biopsy-proven right humeral head in March 2017, at that time she was referred to radiation and patient received whole brain radiation therapy and completed on March 28, 2017 but no radiation was considered to right humerus. Earlier patient was diagnosed with left breast cancer in 2014, at that time she underwent neoadjuvant chemotherapy with Taxotere/Herceptin/Perjeta x6 followed by bilateral mastectomy which showed yT2 ,y N2A, MX stage III followed by Arimidex and then in January 2017 she underwent left breast excisional biopsy which showed high-grade IDC with dermal lymphatic invasion ER positive ND negative HER-2/eric positive, at that time she was placed on lapatinib 1250 mg p.o. daily, Faslodex was started on March 25, 2017 and Herceptin was added on March 20, 2017 and Xgeva was started on June 17, 2017, in April 2018 Herceptin and Tykerb was stopped and on April 28, 2018 she was started on Kadcyla every 3 weeks and follow-up scans done in 2017 and then in and in 2019 showed stable disease and the last PET scan done on September 19, 2020 showed status post bilateral mastectomy with no focal area of increased activity in the chest, abdomen or pelvis to suggest metastatic disease. Stable minimal reactive fibrotic changes at the lung bases consistent with inflammatory process. New large area of intense activity in the left maxilla could represent dental process. Stable nonmetabolically active sclerotic lesion at L2 and in the right humeral head. On January 31, 2021 patient underwent debridement of necrotic bone left maxilla and bleeding controlled surrounding soft tissue and patient did require 2 units of packed RBC. Xgeva was discontinued on February 09, 2021 due to ONJ, while continue on 3 weekly Kadcyla and for weekly Faslodex History of left lower extremity DVT started on Eliquis on May 28, 2017 stopped on November 26, 2018. History of mild transaminitis AST 137 on January 31, 2021, being monitored Pancreatic cyst seen on CT scan of chest abdomen pelvis in April 2019, she was referred to pancreaticobiliary surgeon, follow-up was recommended Skin rash across chest and left arm, was evaluated by dermatology on December 28, 2019 and impression was spider angiomas due to underlying metastatic disease or hyper estrogen state or medication Left knee stiffness improved with physical therapy. Slightly elevated bilirubin, being observed. Hypoxia, VQ scan done in March 2020 was normal study, was evaluated by Dr. Ty Trevizo on November 27, 2020 who advised her to use home oxygen to keep O2 saturation more than 89% his impression was patient may have ILD chest x-ray done on February 01, 2021 shows stable interstitial prominence within the periphery of both lungs suggestive of drug-related pneumonitis/fibrosis VQ scan done on January 26, 2021 shows no evidence of pulmonary embolism Patient status post maternal Covid vaccine done in September 1999 21-second dose was given on October 13, 2020 CVA as per patient and daughter patient had a fall on January 15, 2021 for which she was admitted to hospital and had CT scan of the brain which was consistent with stroke and she was started on baby aspirin and Lipitor with improvement to mental clarity. Plan: Discussed with patient regarding her labs white blood count 5.3 hemoglobin 10.6 compared to 10.1 previously hematocrit 34.1 platelets 165,000 CMP within normal limits except AST 37 compared to 52 previously and alk phos 136 compared to 152 previously Clinically, patient doing well, with no new signs suggestive of disease progression her lab work-up is stable with a mild anemia which is improving, will proceed with her next weekly dose of Kadcyla today and then she will return to clinic on May 12 for her monthly dose of Faslodex and 3 weeks from now for next dose of Kadcyla, with CBC CMP Signed By: China Benz M.D. <<Signature on File>>
== END 2021-04-26 09:28 | disposition home or self-care (01) ==
LOC: ONCMED 09:29
PROVIDERS: PCP Internal Medicine; Visit Provider Internal Medicine Hematology & Oncology
DX: Z51.11 Encounter for antineoplastic chemotherapy (principal); C79.51 Secondary malignant neoplasm of bone; C79.31 Secondary malignant neoplasm of brain; C50.912 Malignant neoplasm of unspecified site of left female breast; Z17.0 Estrogen receptor positive status [ER+]; Z86.718 Personal history of other venous thrombosis and embolism; Z79.899 Other long term (current) drug therapy; Z79.82 Long term (current) use of aspirin
CPT/HCPCS: 80053; 85025; 96413; 99215; J7050; J9354

== ENCOUNTER 2021-05-01 10:15 | Outpatient (CLI) | payer MEDICARE, OTHER, SELFPAY ==
--- NOTE | 2021-05-01 10:00 | CT_ITS ---
WS: [id number] CT SINUSES TECHNIQUE: Noncontrast CT of the paranasal sinuses with coronal and sagittal reformatted images. CLINICAL INFORMATION: ostemomyelitis MAxilla COMPARISON: PET/CT March 03, 2021 DLP: 384.[address] scans at [facility] use at least one of these dose optimization techniques: automated e xposure control; mA and/or kV adjustment per patient size (includes targeted exams where dose is matc hed to clinical indication); or iterative reconstruction. FINDINGS: Mastoid air cells are well aerated. Opacification left frontal sinus and frontal ethmoidal recess. Mu cosal thickening left ethmoid air cells. Moderate mucosal thickening left maxillary sinus. Sphenoid s inuses are well aerated. Dental artifact degrades some images. Prior postoperative changes partial resection of the left maxilla. No evidence of drainable abscess or fluid collection in the surgical bed. Sclerotic changes in the remainder of the dorsal residual le ft maxilla. No evidence of bony destruction to indicate active osteomyelitis in this area. Small amount of lucency with bony fragmentation involving the residual left anterior maxilla at the m axillary alveolar ridge may be due to postoperative changes and bone graft material versus residual o steomyelitis. Recommend clinical correlation with surgical history and oral surgery consultation Right maxillary is normal in appearance. Normal pterygoid plates. Mild narrowing of the ostiomeatal u nits bilaterally. Minimal nasoseptal deviation. Bilateral osmany bullosa. Small bilateral Markie cell s. IMPRESSION: 1. Partial resection of the alveolar process left maxilla. Normal underlying surgical bed. No eviden ce of drainable abscess or fluid collection. 2. Small amount of lucency with bony fragmentation involving the residual left anterior maxilla at t he maxillary alveolar ridge may be due to postoperative changes and bone graft material versus residu al osteomyelitis. Recommend clinical correlation and oral surgery consultation 3. Small amount of sclerosis involving the residual posterior maxillary process is likely due to flaco atment-related changes. 4. Normal right maxilla. 5. Moderate mucosal thickening left maxillary sinus. 6. Mastoid air cells well aerated.
--- NOTE | 2021-05-01 10:15 | CT_ITS ---
WS: [id number] CT HEAD TECHNIQUE: Noncontrast CT of the head obtained from the skullbase to the vertex. CLINICAL INFORMATION: estbalmission hospital extent of disease COMPARISON: February 25, 2021 DLP: 992.[address] scans at [facility] use at least one of these dose optimization techniques: automated e xposure control; mA and/or kV adjustment per patient size (includes targeted exams where dose is matc hed to clinical indication); or iterative reconstruction. FINDINGS: No evidence of intracranial hemorrhage or mass effect. Ventricular system and basal cisterns are pereira nt. Moderate small vessel changes with moderate parenchymal volume loss. No extra-axial fluid collect ions. No evidence of mass or mass effect. Mucosal thickening left maxillary sinus. Opacification left frontal sinus and frontoethmoidal recess. Mucosal thickening in the left ethmoid air cells. Intracranial vascular calcification. CT/CT head wo con* [id number] IMPRESSION: 1. No evidence of intracranial hemorrhage or mass effect. 2. Moderate small vessel changes with moderate parenchymal volume loss. 3. Previously described patchy low-attenuation change in the right superior ce rebellum is unchanged. 4. Mild mucosal thickening in the paranasal sinuses. 5. No significant interval changes.
== END 2021-05-01 10:16 | disposition home or self-care (01) ==
PROVIDERS: PCP Family Medicine; Visit Provider Student in an Organized Health Care Education/Training Program
DX: M27.2 Inflammatory conditions of jaws (principal); J32.0 Chronic maxillary sinusitis
CPT/HCPCS: 70450; 70486

== ENCOUNTER → 2021-05-11 08:42 | Day surgery (SDC) | payer MEDICARE, OTHER, SELFPAY ==
[2021-05-11 09:39] VITALS: BP 129/66; PULSE 76; RESP 18; TEMP 36.1; O2SAT 92
--- NOTE | 2021-05-11 09:42 | XR_ITS ---
WS: [id number] CHEST XRAY TECHNIQUE: Portable chest. CLINICAL INFORMATION: post PICC insertion COMPARISON: None. FINDINGS: Right PICC line with tip in the distal SVC. No pneumothorax. Heart: Cardiomegaly Lungs: Moderate chronic emphysematous changes. No acute pulmonary infiltrates. Chronic appearing inte rstitial thickening. Bones: Right rotator cuff anchor. XR/XR chest 1V portable [id number] IMPRESSION: Right PICC line with tip in the distal SVC. No pneumothorax.
--- NOTE | 2021-05-11 10:30 | PC.NURSE ---
PICC RIGHT arm ready for use.
--- NOTE | 2021-05-11 10:30 | PC.NURSE ---
Patient wheeled to pov via wheelchair by this nurse, accompanied by daughter. No further questions.
== END ==
LOC: OPS 08:48
PROVIDERS: PCP Family Medicine; Visit Provider Student in an Organized Health Care Education/Training Program
DX: M27.2 Inflammatory conditions of jaws (principal)
CPT/HCPCS: 36569; 71045

== ENCOUNTER 2021-05-17 08:49 | Outpatient (CLI) | payer MEDICARE, OTHER, SELFPAY ==
[2021-05-17 09:31] LABS: Basophils # 0.2 10^3/uL (0.0-0.1); Basophils % 2.2 %; Eosinophils # 0.7 10^3/uL (0.0-0.8); Eosinophils % 9.6 %; Hematocrit 31.6 % (37.0-47.0); Hemoglobin 9.9 g/dL (11.5-15.3); Lymphocytes # 2.7 10^3/uL (0.8-4.8); Mean Corpuscular HGB Conc 31.3 g/dL (30.0-36.0); Mean Corpuscular Hemoglobin 27.7 pg (28.0-34.0); Mean Corpuscular Volume 88.5 fl (81-99); Mean Platelet Volume 11.3 fL (7.4-10.4); Monocytes # 0.7 10^3/uL (0.2-0.9); Monocytes % 9.5 %; Neutrophils % 40.6 %; Nucleated Red Blood Cells % 0 %; Platelet Count 167 10^3/cmm (130-400); Red Blood Count 3.57 10^6/uL (4.1-5.3); White Blood Count 7.2 10^3/uL (4.0-10.0)
[2021-05-17 09:56] LABS: Alanine Aminotransferase 35 U/L (0-33); Alkaline Phosphatase 121 IU/L (35-105); Anion Gap 13.8 (5-19); Aspartate Amino Transferase 54 U/L (0-32); Blood Urea Nitrogen 15 mg/dL (8-23); Calcium 9.1 mg/dL (8.5-10.5); Carbon Dioxide 23 mmol/L (22-29); Chloride 107 mmol/L (98-107); Globulin 3.4 g/dL (1.3-4.6); Glomerular Filtration Rate 159.2 mL/min (90-130); Glucose 84 mg/dL (65-115); Osmolality Calculated 290 mOsm/kg (285-295); Potassium 3.8 mmol/L (3.5-5.1); Sodium 140 mmol/L (136-145); Total Bilirubin 1.2 mg/dL (0.15-1.2); Total Protein 6.4 g/dL (6.6-8.7)
[2021-05-17] MEDS: fulvestrant 250 mg/5 mL Syringe 500 MG IM (11:50)
[2021-05-17 12:18] LABS: Reticulocyte % 1.7 % (0.5-2.0)
[2021-05-17 12:45] LABS: Chol HDL Ratio 2.98 mg/dL (0.0-4.40); Cholesterol 158 mg/dL (0-200); Ferritin 37 ng/mL (15-150); HDL Cholesterol 53 mg/dL (60-100); Iron 41 ug/dL (37-145); LDL Cholesterol Calculated 85 mg/dL (50-129); Percent Saturation 13.9 % (20-50); Total Iron Binding Capacity 294 mcg/dl; Triglycerides 101 mg/dL (0-150); Unsaturated Iron Binding 253 ug/dL (112-347)
[2021-05-17 12:58] LABS: Folate Level 16.4 ng/mL (4.8-37.3)
[2021-05-17 12:59] LABS: Vitamin B12 605 pg/mL (232-1245)
--- NOTE | 2021-05-21 11:11 | ONC FU_ITS ---
Dr. Benz follow up note Patient: Yenifer Ríos Unit #: [id number]: [id number] Dicatated By: China Benz M.D.Date of Visit:May 17, 2021 Onc Med Follow-up/Prog Note History of Present Illness: This is a 65 year old woman who presented with clinical symptoms of umbilical hernia. Preoperative Ca-125 was 255 on 03/12/12. On 03/26/12 she underwent exploratory laparotomy and surgical debulking with total abdominal hysterectomy, bilateral oophorectomies with an block rectosigmoid resection and anastomosis, inguinal lymph node dissection. 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 3/20 lymph nodes were involved. Thus, pathological T3c N1 M1 (abdominal wall) FIGO stage IV. Left sided Port-A-Cath was placed. She was first seen on 04/15/12. Her baseline CT of chest abdomen and pelvis on 04/28/12 showed postoperative changes with seromas, but no evidence of recurrent disease, adenopathy or metastatic lesion. Ca-125 decreased to 74.9. Palliative chemotherapy with Carboplatin AUC of 6 and Paclitaxel 175 mg/m2 for six cycles every 3 weeks was recommenced. The chemotherapy was initiated on 04/28/12, complicated with grade 3 neutropenia without infections requiring further growth factor support. Her restaging CT of the chest abdomen and pelvis on 07/09/12, after 4 cycles of treatment, showed decreased postsurgical fluid collections and no evidence of disease progression. Cycle 6 was completed on 08/11/12. CEA 13.3. After that, patient moved to [place], where, in 2014 she went to [facility] with abnormal left breast mammogram, biopsy confirmed, subsequently underwent neoadjuvant chemotherapy with Taxotere/Herceptin/Perjeta for ER positive PA negative HER-2/eric positive disease followed by bilateral mastectomy which confirmed 8 out of 19 positive lymph node, e.g. yT2, yN2A, ER 94% positive PA 0% HER-2/eric 3+ by FISH stage III followed by Arimidex, and in early 2015 patient developed lesion on the left breast skin, excisional biopsy done on November 23, 2015 showed dermal cutaneous nodule of recurrence IDC of breast, grade 3, main tumor nodule measured 1.5 cm size and does not directly involve the margin. At least one satellite nodule of tumor measuring 0.2 cm in size with extensive lymphatic invasion by tumor including lymphatic channel adjacent to the margin concerning for skin/chest wall recurrence at the left reconstruction site. And brain mets CT PET scan done in January 2017 showed right glenohumeral joint lesion about 2.5 cm, MRI of right shoulder done in March 2017 showed 3.6 x 2.5 x 3.4 cm bone marrow lesion within the medial right humeral head consistent with sclerotic metastatic disease CT-guided biopsy was done which confirmed metastatic carcinoma consistent with breast primary ER positive PA negative HER-2/eric positive patient completed whole brain radiation therapy on on March 28, 2017 follow-up CT brain done in February 2018 showed no brain mets. Patient also had left excisional breast biopsy done in January 2017 showed high-grade IDC with dermal lymphatic invasion ER positive PA negative HER-2/eric positive, at that time she was placed on lapatinib 1250 mg p.o. daily which is used as systemic therapy to target HER-2/eric positive metastatic breast cancer, Faslodex was started on March 25, 2017, Herceptin started on March 20, 2017, Xgeva was started on June 17, 2017, on April 07, 2018 Herceptin and Tykerb was stopped and on April 28, 2018 patient was started on Kadcyla patient was referred to radiation oncology regarding radiation therapy to the right humerus but at that time he was decided to hold off radiation. Follow-up CT PET scan done on July 05 showed response to the treatment follow-up CT scan and bone scan done in November 2018 showed stable disease and follow-up CT scan of brain done on January 19, 2019 showed no brain mets but mild small vessel ischemic changes for which she was referred to neurology. Follow-up CT PET scan done in April 2019 shows stable disease but nonspecific tiny focus of FDG accumulation right third rib for which she was referred to pulmonology to address lung changes seen on CT scan on June 18, 2019 patient had a bone scan done which shows stable disease and her echocardiogram done on June 08, 2019 shows ejection fraction 65 to 70% and her follow-up CT PET scan done in November 2019 shows stable disease then repeat follow-up CT PET scan done on March 21, 2020 shows stable disease On April 06, 2020 patient had TTE which showed ejection fraction 74% Follow-up CT PET scan done in September 2020 shows status post bilateral mastectomy with no focal area of increased activity in the chest abdomen or pelvis to suggest metastatic disease. Stable minimally active fibrotic changes at the lung bases posteriorly most consistent with inflammatory process. New large area of intense activity in the left maxilla which could represent dental process. Stable nonmetabolically active sclerotic lesion at L2 and in the large humeral head. On January 31, 2022 February 03, 2020 patient underwent debridement of necrotic bone left maxilla and bleeding controlled surrounding soft tissue with Dr. Marlo Purvis. Oral surgery. Postop finding were necrotic bone with sharp margins adjacent bleeding granulation tissue. Patient received 2 units of packed RBC. On February 09, 2021 Xgeva was discontinued due to ONJ. While continue with Kadcyla every 3 weeks and Faslodex every 4 weeks History of left lower extremity DVT patient was started on Eliquis on May 28, 2017 and Eliquis was stopped on November 26, 2018. History of skin rash across chest and on left arm seen by dermatology on December 28, 2019 and impression was spider angiomas may be due to underlying metastatic disease or hyper estrogen state versus liver disease from metastatic disease. History of left knee stiffness improved with physical therapy.,'s history of slightly elevated bilirubin around one-point being observed. History of hypoxia, VQ scan done on March 13, 2020 was normal study no history of PE., Stroke per patient and daughter patient had a fall on January 15, 2021 which prompted hospital stay and CT scan of head apparently revealed evidence of stroke she was started on baby aspirin and Lipitor with improvement to mental clarity On January 26, 2021 VQ scan lung shows no evidence of pulmonary embolism Patient has moved to [place] and now here to establish care. Denies any specific complaints, no fever chills, no nausea or vomiting, no diarrhea or constipation, only mild lower extremity edema, as per patient she traveled via car from [place] to [place] recently may have caused this edema. Denies any lower extremity pain denies any new bony pain denies any headaches blurred vision or double vision denies any shortness of breath or chest pain or palpitation. CT PET scan done on March 03, 2021 showed negative for active malignancy, sterilized osseous metastatic disease Echocardiogram done on February 25, 2021 showed ejection fraction 55 to 60% Came for follow-up, denies any specific complaints, no fever chills, no nausea or vomiting, no diarrhea constipation, as per patient Dr. 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 Otherwise no fever chills, no nausea or vomiting, no diarrhea or constipation, no headaches blurred vision or double vision, no new bony pains tolerating Kadcyla/Faslodex well otherwise Medications: Amoxicillin-Pot Clavulanate 1 Tablet (of 875-125 mg) Oral t.i.d., Aspirin 81 1 Tablet (of 81 mg) Tablet, chewable Oral daily, Atorvastatin Calcium 1 (80 mg) Tablet Oral daily, Calcium Tablet Oral, Clopidogrel Bisulfate 1 (75 mg) Tablet Oral daily, Magnesium 1 Tablet (of 250 mg) Oral daily, MiraLax Powder Oral daily PRN, Pantoprazole Sodium (40 mg) Tablet, enteric coated Oral daily Allergies: Iodinated Contrast Media Review of Systems: Review of Systems is not available for this patient. Vital Signs: Performed on May 17, 2021 10:50 Height - 69.00 in Weight - 160 lbs (HIGH) BSA - 1.88 sq.m BMI - 23.63 Temperature - 97.6 F (LOW) Pulse - 91 /min Respiration - 18 /min BP - 109/66 mm(hg) O2 Sat - 92 % (LOW) Pain - 0 Fatigue - 0 Performance Status: 2 - Ambulatory/capable of all self-care, unable to perform any work activities. Up and about more than 50% of waking hours. (ECOG) Physical Examination: ENMT - No mouth sores, no thrush, no jaundice, Respiratory - Lungs are clear to auscultation, Cardiovascular - Regular rate and rhythm of heart, Abdomen - Soft, bowel sounds present, Extremities - No visible edema. Lab/Imaging: Most recent lab results are not available for this patient. Impression: Metastatic invasive ductal carcinoma involving brain status post radiation therapy and multiple bone lesions including biopsy-proven right humeral head in March 2017, at that time she was referred to radiation and patient received whole brain radiation therapy and completed on March 28, 2017 but no radiation was considered to right humerus. Earlier patient was diagnosed with left breast cancer in 2014, at that time she underwent neoadjuvant chemotherapy with Taxotere/Herceptin/Perjeta x6 followed by bilateral mastectomy which showed yT2 ,y N2A, MX stage III followed by Arimidex and then in January 2017 she underwent left breast excisional biopsy which showed high-grade IDC with dermal lymphatic invasion ER positive PA negative HER-2/eric positive, at that time she was placed on lapatinib 1250 mg p.o. daily, Faslodex was started on March 25, 2017 and Herceptin was added on March 20, 2017 and Xgeva was started on June 17, 2017, in April 2018 Herceptin and Tykerb was stopped and on April 28, 2018 she was started on Kadcyla every 3 weeks and follow-up scans done in 2017 and then in and in 2019 showed stable disease and the last PET scan done on September 19, 2020 showed status post bilateral mastectomy with no focal area of increased activity in the chest, abdomen or pelvis to suggest metastatic disease. Stable minimal reactive fibrotic changes at the lung bases consistent with inflammatory process. New large area of intense activity in the left maxilla could represent dental process. Stable nonmetabolically active sclerotic lesion at L2 and in the right humeral head. On January 31, 2021 patient underwent debridement of necrotic bone left maxilla and bleeding controlled surrounding soft tissue and patient did require 2 units of packed RBC. Xgeva was discontinued on February 09, 2021 due to ONJ, while continue on 3 weekly Kadcyla and for weekly Faslodex History of left lower extremity DVT started on Eliquis on May 28, 2017 stopped on November 26, 2018. History of mild transaminitis AST 137 on January 31, 2021, being monitored Pancreatic cyst seen on CT scan of chest abdomen pelvis in April 2019, she was referred to pancreaticobiliary surgeon, follow-up was recommended Skin rash across chest and left arm, was evaluated by dermatology on December 28, 2019 and impression was spider angiomas due to underlying metastatic disease or hyper estrogen state or medication Left knee stiffness improved with physical therapy. Slightly elevated bilirubin, being observed. Hypoxia, VQ scan done in March 2020 was normal study, was evaluated by Dr. Ty Trevizo on November 27, 2020 who advised her to use home oxygen to keep O2 saturation more than 89% his impression was patient may have ILD chest x-ray done on February 01, 2021 shows stable interstitial prominence within the periphery of both lungs suggestive of drug-related pneumonitis/fibrosis VQ scan done on January 26, 2021 shows no evidence of pulmonary embolism Patient status post maternal Covid vaccine done in September 1999 21-second dose was given on October 13, 2020 CVA as per patient and daughter patient had a fall on January 15, 2021 for which she was admitted to hospital and had CT scan of the brain which was consistent with stroke and she was started on baby aspirin and Lipitor with improvement to mental clarity. Plan: Discussed with patient regarding her labs white blood count 7.2 hemoglobin 9.9 g medical 31.6 platelets 167,000 CMP within normal limits except mildly elevated LFTs and alk phos, Clinically, patient is doing reasonably well,, notably treated with Kadcyla/Faslodex, patient is due for both today but because of not being started on 4-week course of parenteral antibiotics for facial bone infection, will hold her Kadcyla today to avoid infection flare but will give her scheduled dose of Faslodex. We will obtain records from Dr. sapp office and review. Patient return to clinic in 1 month with CBC CMP and to resume her Kadcyla while continue with Faslodex Signed By: China Benz M.D. <<Signature on File>>
== END 2021-05-17 08:50 | disposition home or self-care (01) ==
LOC: ONCMED 08:51
PROVIDERS: PCP Family Medicine; Visit Provider Internal Medicine Hematology & Oncology
DX: C50.812 Malignant neoplasm of overlapping sites of left female breast (principal); Z17.0 Estrogen receptor positive status [ER+]; C79.31 Secondary malignant neoplasm of brain; C79.51 Secondary malignant neoplasm of bone; Z90.11 Acquired absence of right breast and nipple; Z90.12 Acquired absence of left breast and nipple; R79.89 Other specified abnormal findings of blood chemistry; I63.9 Cerebral infarction, unspecified; Z79.818 Long term (current) use of other agents affecting estrogen receptors and estrogen levels; Z86.718 Personal history of other venous thrombosis and embolism; Z92.21 Personal history of antineoplastic chemotherapy; Z92.3 Personal history of irradiation; Z79.899 Other long term (current) drug therapy
CPT/HCPCS: 36592; 80053; 80061; 82607; 82728; 82746; 83540; 83550; 85025; 85045; 96402; 99215; J9395

== ENCOUNTER 2021-06-20 08:16 | Outpatient (CLI) | payer MEDICARE, OTHER, SELFPAY ==
--- NOTE | 2021-06-20 09:06 | ONC FU_ITS ---
Dr. Benz follow up note Patient: Yenifer Ríos Unit #: [id number]: 1955 Dicatated By: China Benz M.D.Date of Visit:Jun 20, 2021 Onc Med Follow-up/Prog Note History of Present Illness: This is a 65 year old woman who presented with clinical symptoms of umbilical hernia. Preoperative Ca-125 was 255 on 03/12/12. On 03/26/12 she underwent exploratory laparotomy and surgical debulking with total abdominal hysterectomy, bilateral oophorectomies with an block rectosigmoid resection and anastomosis, inguinal lymph node dissection. 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 3/20 lymph nodes were involved. Thus, pathological T3c N1 M1 (abdominal wall) FIGO stage IV. Left sided Port-A-Cath was placed. She was first seen on 04/15/12. Her baseline CT of chest abdomen and pelvis on 04/28/12 showed postoperative changes with seromas, but no evidence of recurrent disease, adenopathy or metastatic lesion. Ca-125 decreased to 74.9. Palliative chemotherapy with Carboplatin AUC of 6 and Paclitaxel 175 mg/m2 for six cycles every 3 weeks was recommenced. The chemotherapy was initiated on 04/28/12, complicated with grade 3 neutropenia without infections requiring further growth factor support. Her restaging CT of the chest abdomen and pelvis on 07/09/12, after 4 cycles of treatment, showed decreased postsurgical fluid collections and no evidence of disease progression. Cycle 6 was completed on 08/11/12. CEA 13.3. After that, patient moved to [place], where, in 2014 she went to [facility] with abnormal left breast mammogram, biopsy confirmed, subsequently underwent neoadjuvant chemotherapy with Taxotere/Herceptin/Perjeta for ER positive VT negative HER-2/eric positive disease followed by bilateral mastectomy which confirmed 8 out of 19 positive lymph node, e.g. yT2, yN2A, ER 94% positive VT 0% HER-2/eric 3+ by FISH stage III followed by Arimidex, and in early 2015 patient developed lesion on the left breast skin, excisional biopsy done on November 23, 2015 showed dermal cutaneous nodule of recurrence IDC of breast, grade 3, main tumor nodule measured 1.5 cm size and does not directly involve the margin. At least one satellite nodule of tumor measuring 0.2 cm in size with extensive lymphatic invasion by tumor including lymphatic channel adjacent to the margin concerning for skin/chest wall recurrence at the left reconstruction site. And brain mets CT PET scan done in January 2017 showed right glenohumeral joint lesion about 2.5 cm, MRI of right shoulder done in March 2017 showed 3.6 x 2.5 x 3.4 cm bone marrow lesion within the medial right humeral head consistent with sclerotic metastatic disease CT-guided biopsy was done which confirmed metastatic carcinoma consistent with breast primary ER positive VT negative HER-2/eric positive patient completed whole brain radiation therapy on on March 28, 2017 follow-up CT brain done in February 2018 showed no brain mets. Patient also had left excisional breast biopsy done in January 2017 showed high-grade IDC with dermal lymphatic invasion ER positive VT negative HER-2/eric positive, at that time she was placed on lapatinib 1250 mg p.o. daily which is used as systemic therapy to target HER-2/eric positive metastatic breast cancer, Faslodex was started on March 25, 2017, Herceptin started on March 20, 2017, Xgeva was started on June 17, 2017, on April 07, 2018 Herceptin and Tykerb was stopped and on April 28, 2018 patient was started on Kadcyla patient was referred to radiation oncology regarding radiation therapy to the right humerus but at that time he was decided to hold off radiation. Follow-up CT PET scan done on July 05 showed response to the treatment follow-up CT scan and bone scan done in November 2018 showed stable disease and follow-up CT scan of brain done on January 19, 2019 showed no brain mets but mild small vessel ischemic changes for which she was referred to neurology. Follow-up CT PET scan done in April 2019 shows stable disease but nonspecific tiny focus of FDG accumulation right third rib for which she was referred to pulmonology to address lung changes seen on CT scan on June 18, 2019 patient had a bone scan done which shows stable disease and her echocardiogram done on June 08, 2019 shows ejection fraction 65 to 70% and her follow-up CT PET scan done in November 2019 shows stable disease then repeat follow-up CT PET scan done on March 21, 2020 shows stable disease On April 06, 2020 patient had TTE which showed ejection fraction 74% Follow-up CT PET scan done in September 2020 shows status post bilateral mastectomy with no focal area of increased activity in the chest abdomen or pelvis to suggest metastatic disease. Stable minimally active fibrotic changes at the lung bases posteriorly most consistent with inflammatory process. New large area of intense activity in the left maxilla which could represent dental process. Stable nonmetabolically active sclerotic lesion at L2 and in the large humeral head. On January 31, 2022 February 03, 2020 patient underwent debridement of necrotic bone left maxilla and bleeding controlled surrounding soft tissue with Dr. Marlo Purvis. Oral surgery. Postop finding were necrotic bone with sharp margins adjacent bleeding granulation tissue. Patient received 2 units of packed RBC. On February 09, 2021 Xgeva was discontinued due to ONJ. While continue with Kadcyla every 3 weeks and Faslodex every 4 weeks History of left lower extremity DVT patient was started on Eliquis on May 28, 2017 and Eliquis was stopped on November 26, 2018. History of skin rash across chest and on left arm seen by dermatology on December 28, 2019 and impression was spider angiomas may be due to underlying metastatic disease or hyper estrogen state versus liver disease from metastatic disease. History of left knee stiffness improved with physical therapy.,'s history of slightly elevated bilirubin around one-point being observed. History of hypoxia, VQ scan done on March 13, 2020 was normal study no history of PE., Stroke per patient and daughter patient had a fall on January 15, 2021 which prompted hospital stay and CT scan of head apparently revealed evidence of stroke she was started on baby aspirin and Lipitor with improvement to mental clarity On January 26, 2021 VQ scan lung shows no evidence of pulmonary embolism Patient has moved to [place] and now here to establish care. Denies any specific complaints, no fever chills, no nausea or vomiting, no diarrhea or constipation, only mild lower extremity edema, as per patient she traveled via car from [place] to [place] recently may have caused this edema. Denies any lower extremity pain denies any new bony pain denies any headaches blurred vision or double vision denies any shortness of breath or chest pain or palpitation. 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 due to Xgeva and radiation therapystatus post 4-week course of IV ampicillin, Xgeva was discontinued Came for follow-up, denies any specific complaint except generalized weakness and fatigue, patient has completed 4-week course of IV ampicillin, now denies any fever chills denies any nausea or vomiting denies any diarrhea constipation denies any headaches blurred vision or double vision, denies any melena or hematochezia denies any hemoptysis or hematemesis denies any jaundice denies any new bony pains, as per patient she still has open wound in left maxilla and now being referred to maxillofacial surgery at [facility]. And she is here to resume her systemic therapy for metastatic breast cancer with Kadcyla while continue with monthly Faslodex. Medications: Amoxicillin-Pot Clavulanate 1 Tablet (of 875-125 mg) Oral t.i.d., Aspirin 81 1 Tablet (of 81 mg) Tablet, chewable Oral daily, Atorvastatin Calcium 1 (80 mg) Tablet Oral daily, Calcium Tablet Oral, Clopidogrel Bisulfate 1 (75 mg) Tablet Oral daily, Magnesium 1 Tablet (of 250 mg) Oral daily, MiraLax Powder Oral daily PRN, Pantoprazole Sodium (40 mg) Tablet, enteric coated Oral daily Allergies: Iodinated Contrast Media Review of Systems: Review of Systems is not available for this patient. Vital Signs: Performed on Jun 20, 2021 08:57 Height - 69.00 in Temperature - 98.2 F (LOW) Pulse - 79 /min Respiration - 18 /min BP - 124/73 mm(hg) O2 Sat - 92 % (LOW) Pain - 0 Fatigue - 2 Performance Status: 2 - Ambulatory/capable of all self-care, unable to perform any work activities. Up and about more than 50% of waking hours. (ECOG) Physical Examination: ENMT - No mouth sores, no thrush, no jaundice, Respiratory - Lungs are clear to auscultation, Cardiovascular - Regular rate and rhythm of heart, Abdomen - Soft, bowel sounds present, Extremities - No visible edema. Lab/Imaging: Test performed on Jun 19, 2021 04:25 Glucose 75 mg/dL Protein, Total 6.00 g/dL Albumin 2.9 g/dL BUN 22 mg/dL Bilirubin, Total 0.9 mg/dL Creatinine 0.62 mg/dL Alkaline Phosphatase 92 International Units/L AST (SGOT) 27 International Units/L Sodium 140.6 mmol/L ALT (SGPT) 20 International Units/L Potassium 4.12 mmol/L Chloride 107.2 mmol/L CO2 26.3 mmol/L Calcium 9.1 mg/dL WBC 5.6 10^9/L RBC 3.2 10^12/L HGB 9.2 g/dL HCT 29.5 % MCV 92.2 fl MCH 28.8 pg MCHC 31.2 g/dL RDW 20.40 % Platelet Count 128.0 10^9/L MPV 12.2 fL Neutrophils (Gran) 2.09 10^9/L Lymphocytes 2.38 10^9/L Monocytes 0.5208 10^9/L Eosinophils 0.4984 10^9/L Basophils 0.0896 10^9/L Impression: Metastatic invasive ductal carcinoma involving brain status post radiation therapy and multiple bone lesions including biopsy-proven right humeral head in March 2017, at that time she was referred to radiation and patient received whole brain radiation therapy and completed on March 28, 2017 but no radiation was considered to right humerus. Earlier patient was diagnosed with left breast cancer in 2014, at that time she underwent neoadjuvant chemotherapy with Taxotere/Herceptin/Perjeta x6 followed by bilateral mastectomy which showed yT2 ,y N2A, MX stage III followed by Arimidex and then in January 2017 she underwent left breast excisional biopsy which showed high-grade IDC with dermal lymphatic invasion ER positive VT negative HER-2/eric positive, at that time she was placed on lapatinib 1250 mg p.o. daily, Faslodex was started on March 25, 2017 and Herceptin was added on March 20, 2017 and Xgeva was started on June 17, 2017, in April 2018 Herceptin and Tykerb was stopped and on April 28, 2018 she was started on Kadcyla every 3 weeks and follow-up scans done in 2017 and then in and in 2019 showed stable disease and the last PET scan done on September 19, 2020 showed status post bilateral mastectomy with no focal area of increased activity in the chest, abdomen or pelvis to suggest metastatic disease. Stable minimal reactive fibrotic changes at the lung bases consistent with inflammatory process. New large area of intense activity in the left maxilla could represent dental process. Stable nonmetabolically active sclerotic lesion at L2 and in the right humeral head. On January 31, 2021 patient underwent debridement of necrotic bone left maxilla and bleeding controlled surrounding soft tissue and patient did require 2 units of packed RBC. Xgeva was discontinued on February 09, 2021 due to ONJ, while continue on 3 weekly Kadcyla and for weekly Faslodex History of left lower extremity DVT started on Eliquis on May 28, 2017 stopped on November 26, 2018. History of mild transaminitis AST 137 on January 31, 2021, being monitored Pancreatic cyst seen on CT scan of chest abdomen pelvis in April 2019, she was referred to pancreaticobiliary surgeon, follow-up was recommended Skin rash across chest and left arm, was evaluated by dermatology on December 28, 2019 and impression was spider angiomas due to underlying metastatic disease or hyper estrogen state or medication Left knee stiffness improved with physical therapy. Slightly elevated bilirubin, being observed. Hypoxia, VQ scan done in March 2020 was normal study, was evaluated by Dr. Ty Trevizo on November 27, 2020 who advised her to use home oxygen to keep O2 saturation more than 89% his impression was patient may have ILD chest x-ray done on February 01, 2021 shows stable interstitial prominence within the periphery of both lungs suggestive of drug-related pneumonitis/fibrosis VQ scan done on January 26, 2021 shows no evidence of pulmonary embolism Patient status post maternal Covid vaccine done in September 1999 21-second dose was given on October 13, 2020 CVA as per patient and daughter patient had a fall on January 15, 2021 for which she was admitted to hospital and had CT scan of the brain which was consistent with stroke and she was started on baby aspirin and Lipitor with improvement to mental clarity. 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 likely related to Xgeva or radiation necrosis and due to ongoing bone exposure over left maxilla, now maxillofacial surgical evaluation at [facility] in [place] is under consideration per infectious disease, Her Kadcyla infusion was held during IV ampicillin course and resumed on June 20, 2021 after patient completed 4 weeks course of IV ampicillin Plan: Discussed with patient regarding her labs white blood count 5.6 hemoglobin 9.2 g compared to 8.8 g previously hematocrit 29.5 platelets 128,000 CMP within normal limits Clinically, patient is doing reasonably well, overall quality of life is improving, patient has completed 4 weeks course of IV ampicillin for actinomyces/left maxilla osteomyelitis, her Kadcyla infusion was held during IV antibiotic course, now patient is here to resume, will proceed with next dose of Kadcyla along with Faslodex today and then she will return to clinic in 3 weeks with CBC CMP while continue monthly Faslodex. As far as anemia is concerned, etiology appears multifactorial including anemia of chronic disease but her hemoglobin is stable, will continue to monitor Mild thrombocytopenia, will continue to monitor Return to clinic in 3 weeks with CBC CMP. Signed By: China Benz M.D. <<Signature on File>>
== END 2021-06-20 08:17 | disposition home or self-care (01) ==
LOC: ONCMED 08:16
PROVIDERS: PCP Internal Medicine; Visit Provider Internal Medicine Hematology & Oncology
DX: C50.812 Malignant neoplasm of overlapping sites of left female breast (principal); Z17.0 Estrogen receptor positive status [ER+]; C79.31 Secondary malignant neoplasm of brain; C79.51 Secondary malignant neoplasm of bone; R74.8 Abnormal levels of other serum enzymes; R79.89 Other specified abnormal findings of blood chemistry; Z79.811 Long term (current) use of aromatase inhibitors; Z79.899 Other long term (current) drug therapy; Z92.21 Personal history of antineoplastic chemotherapy; Z90.13 Acquired absence of bilateral breasts and nipples; Z86.718 Personal history of other venous thrombosis and embolism
CPT/HCPCS: 99214

== ENCOUNTER 2021-06-25 06:36 | Outpatient (CLI) | payer MEDICARE, OTHER, SELFPAY ==
[2021-06-25] MEDS: sodium chloride 0.9% 250 ML 75 ML IV (13:15)
[2021-06-25] MEDS: fulvestrant 250 mg/5 mL Syringe 500 MG IM (14:48)
== END 2021-06-25 06:37 | disposition home or self-care (01) ==
LOC: ONCMED 06:39
PROVIDERS: PCP Internal Medicine; Visit Provider Internal Medicine Hematology & Oncology
DX: Z51.11 Encounter for antineoplastic chemotherapy (principal); C50.812 Malignant neoplasm of overlapping sites of left female breast; Z17.0 Estrogen receptor positive status [ER+]; C79.51 Secondary malignant neoplasm of bone; C79.31 Secondary malignant neoplasm of brain; Z79.818 Long term (current) use of other agents affecting estrogen receptors and estrogen levels
CPT/HCPCS: 96402; 96413; J7050; J9354; J9395

== ENCOUNTER 2021-07-16 08:58 | Outpatient (CLI) | payer MEDICARE, OTHER, SELFPAY ==
[2021-07-16 09:27] LABS: Basophils # 0.1 10^3/uL (0.0-0.1); Basophils % 2.1 %; Eosinophils # 0.3 10^3/uL (0.0-0.8); Eosinophils % 6.2 %; Hematocrit 33.2 % (37.0-47.0); Hemoglobin 10.5 g/dL (11.5-15.3); Lymphocytes # 1.3 10^3/uL (0.8-4.8); Lymphocytes % 24.9 %; Mean Corpuscular HGB Conc 31.6 g/dL (30.0-36.0); Mean Corpuscular Hemoglobin 29.1 pg (28.0-34.0); Mean Platelet Volume 10.6 fL (7.4-10.4); Monocytes # 0.6 10^3/uL (0.2-0.9); Monocytes % 10.6 %; Neutrophils # 2.91 10^3/uL (1.8-7.7); Nucleated Red Blood Cells % 0 %; Platelet Count 161 10^3/cmm (130-400); Red Blood Count 3.61 10^6/uL (4.1-5.3); Red Cell Distribution Width 16.9 % (12.1-15.1); White Blood Count 5.2 10^3/uL (4.0-10.0)
[2021-07-16 09:48] LABS: Alanine Aminotransferase 20 U/L (0-33); Albumin Level 3.6 g/dL (3.5-5.2); Alkaline Phosphatase 120 IU/L (35-105); Anion Gap 16.9 (5-19); Aspartate Amino Transferase 29 U/L (0-32); Blood Urea Nitrogen 16 mg/dL (8-23); Calcium 9.3 mg/dL (8.5-10.5); Carbon Dioxide 23 mmol/L (22-29); Chloride 103 mmol/L (98-107); Globulin 3.2 g/dL (1.3-4.6); Glomerular Filtration Rate 123.1 mL/min (90-130); Glucose 147 mg/dL (65-115); Osmolality Calculated 292 mOsm/kg (285-295); Potassium 3.9 mmol/L (3.5-5.1); Sodium 139 mmol/L (136-145); Total Protein 6.8 g/dL (6.6-8.7)
[2021-07-16] MEDS: sodium chloride 0.9% 250 ML 75 ML IV (11:09)
== END 2021-07-16 08:59 | disposition home or self-care (01) ==
LOC: ONCMED 08:59
PROVIDERS: PCP Internal Medicine; Visit Provider Nurse Practitioner Family
DX: Z51.11 Encounter for antineoplastic chemotherapy (principal); C50.812 Malignant neoplasm of overlapping sites of left female breast; Z17.0 Estrogen receptor positive status [ER+]; C79.31 Secondary malignant neoplasm of brain; C79.51 Secondary malignant neoplasm of bone; Z90.13 Acquired absence of bilateral breasts and nipples; Z86.718 Personal history of other venous thrombosis and embolism; Z86.16 Personal history of COVID-19; Z86.73 Personal history of transient ischemic attack (TIA), and cerebral infarction without residual deficits; Z79.818 Long term (current) use of other agents affecting estrogen receptors and estrogen levels; Z79.899 Other long term (current) drug therapy
CPT/HCPCS: 80053; 85025; 96413; 99215; J7050; J9354

== ENCOUNTER 2021-07-23 06:36 | Outpatient (CLI) | payer MEDICARE, OTHER, SELFPAY ==
[2021-07-23] MEDS: fulvestrant 250 mg/5 mL Syringe 500 MG IM (10:22)
== END 2021-07-23 06:37 | disposition home or self-care (01) ==
LOC: ONCMED 06:37
PROVIDERS: PCP Internal Medicine; Visit Provider Internal Medicine Hematology & Oncology
DX: C50.919 Malignant neoplasm of unspecified site of unspecified female breast (principal); M27.2 Inflammatory conditions of jaws; R26.9 Unspecified abnormalities of gait and mobility; F03.90 Unspecified dementia, unspecified severity, without behavioral disturbance, psychotic disturbance, mood disturbance, and anxiety; I63.89 Other cerebral infarction; I63.9 Cerebral infarction, unspecified; D64.9 Anemia, unspecified
CPT/HCPCS: 96402; J9395

== ENCOUNTER 2021-08-06 09:41 | Outpatient (CLI) | payer MEDICARE, OTHER, SELFPAY ==
[2021-08-06 10:26] LABS: Basophils # 0.1 10^3/uL (0.0-0.1); Basophils % 1.9 %; Eosinophils # 0.4 10^3/uL (0.0-0.8); Eosinophils % 8.5 %; Hematocrit 35.7 % (37.0-47.0); Hemoglobin 11.1 g/dL (11.5-15.3); Lymphocytes # 1.7 10^3/uL (0.8-4.8); Lymphocytes % 34.6 %; Mean Corpuscular HGB Conc 31.1 g/dL (30.0-36.0); Mean Corpuscular Hemoglobin 28.3 pg (28.0-34.0); Mean Corpuscular Volume 91.1 fl (81-99); Mean Platelet Volume 10.8 fL (7.4-10.4); Monocytes # 0.4 10^3/uL (0.2-0.9); Neutrophils # 2.27 10^3/uL (1.8-7.7); Neutrophils % 46.8 %; Nucleated Red Blood Cells % 0 %; Platelet Count 172 10^3/cmm (130-400); Red Blood Count 3.92 10^6/uL (4.1-5.3); White Blood Count 4.9 10^3/uL (4.0-10.0)
[2021-08-06 10:52] LABS: Alanine Aminotransferase 59 U/L (0-33); Albumin Level 3.3 g/dL (3.5-5.2); Alkaline Phosphatase 136 IU/L (35-105); Anion Gap 15.8 (5-19); Aspartate Amino Transferase 111 U/L (0-32); Blood Urea Nitrogen 14 mg/dL (8-23); Calcium 9.1 mg/dL (8.5-10.5); Carbon Dioxide 24 mmol/L (22-29); Chloride 104 mmol/L (98-107); Globulin 3.7 g/dL (1.3-4.6); Glomerular Filtration Rate 99.7 mL/min (90-130); Glucose 129 mg/dL (65-115); Osmolality Calculated 292 mOsm/kg (285-295); Potassium 3.8 mmol/L (3.5-5.1); Sodium 140 mmol/L (136-145)
[2021-08-06] MEDS: sodium chloride 0.9% 250 ML 999 ML IV (13:25)
--- NOTE | 2021-08-06 16:43 | ONC FU_ITS ---
Dr. Benz follow up note Patient: Yenifer Ríos Unit #: [id number]: 1955 Dicatated By: China Benz M.D.Date of Visit:Aug 06, 2021 Onc Med Follow-up/Prog Note History of Present Illness: This is a 65 year old woman who presented with clinical symptoms of umbilical hernia. Preoperative Ca-125 was 255 on 03/12/12. On 03/26/12 she underwent exploratory laparotomy and surgical debulking with total abdominal hysterectomy, bilateral oophorectomies with an block rectosigmoid resection and anastomosis, inguinal lymph node dissection. 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 3/20 lymph nodes were involved. Thus, pathological T3c N1 M1 (abdominal wall) FIGO stage IV. Left sided Port-A-Cath was placed. She was first seen on 04/15/12. Her baseline CT of chest abdomen and pelvis on 04/28/12 showed postoperative changes with seromas, but no evidence of recurrent disease, adenopathy or metastatic lesion. Ca-125 decreased to 74.9. Palliative chemotherapy with Carboplatin AUC of 6 and Paclitaxel 175 mg/m2 for six cycles every 3 weeks was recommenced. The chemotherapy was initiated on 04/28/12, complicated with grade 3 neutropenia without infections requiring further growth factor support. Her restaging CT of the chest abdomen and pelvis on 07/09/12, after 4 cycles of treatment, showed decreased postsurgical fluid collections and no evidence of disease progression. Cycle 6 was completed on 08/11/12. CEA 13.3. After that, patient moved to [place], where, in [address] [facility] with abnormal left breast mammogram, biopsy confirmed, subsequently underwent neoadjuvant chemotherapy with Taxotere/Herceptin/Perjeta for ER positive W[place] negative HER-2/eric positive disease followed by bilateral mastectomy which confirmed 8 out of 19 positive lymph node, e.g. yT2, yN2A, ER 94% positive [place] 0% HER-2/eric 3+ by FISH stage III followed by Arimidex, and in early 2015 patient developed lesion on the left breast skin, excisional biopsy done on November 23, 2015 showed dermal cutaneous nodule of recurrence IDC of breast, grade 3, main tumor nodule measured 1.5 cm size and does not directly involve the margin. At least one satellite nodule of tumor measuring 0.2 cm in size with extensive lymphatic invasion by tumor including lymphatic channel adjacent to the margin concerning for skin/chest wall recurrence at the left reconstruction site. And brain mets CT PET scan done in January 2017 showed right glenohumeral joint lesion about 2.5 cm, MRI of right shoulder done in March 2017 showed 3.6 x 2.5 x 3.4 cm bone marrow lesion within the medial right humeral head consistent with sclerotic metastatic disease CT-guided biopsy was done which confirmed metastatic carcinoma consistent with breast primary ER positive WY negative HER-2/eric positive patient completed whole brain radiation therapy on on March 28, 2017 follow-up CT brain done in February 2018 showed no brain mets. Patient also had left excisional breast biopsy done in January 2017 showed high-grade IDC with dermal lymphatic invasion ER positive WY negative HER-2/eric positive, at that time she was placed on lapatinib 1250 mg p.o. daily which is used as systemic therapy to target HER-2/eric positive metastatic breast cancer, Faslodex was started on March 25, 2017, Herceptin started on March 20, 2017, Xgeva was started on June 17, 2017, on April 07, 2018 Herceptin and Tykerb was stopped and on April 28, 2018 patient was started on Kadcyla patient was referred to radiation oncology regarding radiation therapy to the right humerus but at that time he was decided to hold off radiation. Follow-up CT PET scan done on July 05 showed response to the treatment follow-up CT scan and bone scan done in November 2018 showed stable disease and follow-up CT scan of brain done on January 19, 2019 showed no brain mets but mild small vessel ischemic changes for which she was referred to neurology. Follow-up CT PET scan done in April 2019 shows stable disease but nonspecific tiny focus of FDG accumulation right third rib for which she was referred to pulmonology to address lung changes seen on CT scan on June 18, 2019 patient had a bone scan done which shows stable disease and her echocardiogram done on June 08, 2019 shows ejection fraction 65 to 70% and her follow-up CT PET scan done in November 2019 shows stable disease then repeat follow-up CT PET scan done on March 21, 2020 shows stable disease On April 06, 2020 patient had TTE which showed ejection fraction 74% Follow-up CT PET scan done in September 2020 shows status post bilateral mastectomy with no focal area of increased activity in the chest abdomen or pelvis to suggest metastatic disease. Stable minimally active fibrotic changes at the lung bases posteriorly most consistent with inflammatory process. New large area of intense activity in the left maxilla which could represent dental process. Stable nonmetabolically active sclerotic lesion at L2 and in the large humeral head. On January 31, 2022 February 03, 2020 patient underwent debridement of necrotic bone left maxilla and bleeding controlled surrounding soft tissue with Dr. Marlo Purvis. Oral surgery. Postop finding were necrotic bone with sharp margins adjacent bleeding granulation tissue. Patient received 2 units of packed RBC. On February 09, 2021 Xgeva was discontinued due to ONJ. While continue with Kadcyla every 3 weeks and Faslodex every 4 weeks History of left lower extremity DVT patient was started on Eliquis on May 28, 2017 and Eliquis was stopped on November 26, 2018. History of skin rash across chest and on left arm seen by dermatology on December 28, 2019 and impression was spider angiomas may be due to underlying metastatic disease or hyper estrogen state versus liver disease from metastatic disease. History of left knee stiffness improved with physical therapy.,'s history of slightly elevated bilirubin around one-point being observed. History of hypoxia, VQ scan done on March 13, 2020 was normal study no history of PE., Stroke per patient and daughter patient had a fall on January 15, 2021 which prompted hospital stay and CT scan of head apparently revealed evidence of stroke she was started on baby aspirin and Lipitor with improvement to mental clarity On January 26, 2021 VQ scan lung shows no evidence of pulmonary embolism Patient has moved to [place] and now here to establish care. Denies any specific complaints, no fever chills, no nausea or vomiting, no diarrhea or constipation, only mild lower extremity edema, as per patient she traveled via car from [place] to [place] recently may have caused this edema. Denies any lower extremity pain denies any new bony pain denies any headaches blurred vision or double vision denies any shortness of breath or chest pain or palpitation. 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 due to Xgeva and radiation therapystatus post 4-week course of IV ampicillin, Xgeva was discontinued Came for follow-up, denies any specific complaints, no fever chills, no nausea or vomiting, no diarrhea constipation, no melena hematochezia, no hemoptysis hematemesis, no new bony pains, no jaundice, no abdominal pain, no peripheral neuropathy, tolerating 3 weekly Kadcyla and monthly Faslodex well otherwise Medications: Amoxicillin-Pot Clavulanate 1 Tablet (of 875-125 mg) Oral t.i.d., Aspirin 81 1 Tablet (of 81 mg) Tablet, chewable Oral daily, Atorvastatin Calcium 1 (80 mg) Tablet Oral daily, Calcium Tablet Oral, Clopidogrel Bisulfate 1 (75 mg) Tablet Oral daily, Magnesium 1 Tablet (of 250 mg) Oral daily, MiraLax Powder Oral daily PRN, Pantoprazole Sodium (40 mg) Tablet, enteric coated Oral daily Allergies: Iodinated Contrast Media Review of Systems: Review of Systems is not available for this patient. Vital Signs: Vitals are not available for this patient. Performance Status: 1 - No physically strenuous activity, but ambulatory and able to carry out light or sedentary work (e.g. office work, light house work). (ECOG) Physical Examination: ENMT - No mouth sores, no thrush, no jaundice, Respiratory - Lungs are clear to auscultation, Cardiovascular - Regular rate and rhythm of heart, Abdomen - Soft, bowel sounds present, Extremities - No visible edema. Lab/Imaging: Test performed on Jul 16, 2021 10:39 Sodium 139 mmol/L Potassium 3.9 mmol/L Chloride 103 mmol/L CO2 23 mmol/L Anion Gap 16.9 BUN 16 mg/dL Creatinine 0.5 mg/dL Cr Clearance (Est) 125.09 mL/min eGFR 123.1 mL/min Glucose 147 mg/dL Osmolality - Calculated 292 mOsm/kg Calcium 9.3 mg/dL Bilirubin, Total 1.0 mg/dL ALT (SGPT) 20 Units/L AST (SGOT) 29 Units/L Alkaline Phosphatase 120 International Units/L WBC 5.2 10^3/uL RBC 3.61 10^6/uL HGB 10.5 g/dL HCT 33.2 % MCV 92.0 fl MCH 29.1 pg MCHC 31.6 g/dL RDW 16.9 % Platelet Count 161 10^3/uL MPV 10.6 fl Neutrophils 2.91 10^3/uL Lymphocytes 1.3 10^3/uL Monocytes 0.6 10^3/uL Eosinophils 0.3 10^3/uL Basophils 0.1 10^3/uL Neutrophil % 56.0 % Lymphocyte % 24.9 % Monocyte % 10.6 % Eosinophil % 6.2 % Basophils % 2.1 % NRBC 0 /100 WBC NRBC % 0 % Test performed on Jul 02, 2021 15:52 Protein, Total 5.70 g/dL Albumin 2.9 g/dL Manual Lymphocytes 45.0 % Manual Monocytes 11.3 % Manual Eosinophils 8.0 % Manual Basophils 1.3 % Impression: Metastatic invasive ductal carcinoma involving brain status post radiation therapy and multiple bone lesions including biopsy-proven right humeral head in March 2017, at that time she was referred to radiation and patient received whole brain radiation therapy and completed on March 28, 2017 but no radiation was considered to right humerus. Earlier patient was diagnosed with left breast cancer in 2014, at that time she underwent neoadjuvant chemotherapy with Taxotere/Herceptin/Perjeta x6 followed by bilateral mastectomy which showed yT2 ,y N2A, MX stage III followed by Arimidex and then in January 2017 she underwent left breast excisional biopsy which showed high-grade IDC with dermal lymphatic invasion ER positive WY negative HER-2/eric positive, at that time she was placed on lapatinib 1250 mg p.o. daily, Faslodex was started on March 25, 2017 and Herceptin was added on March 20, 2017 and Xgeva was started on June 17, 2017, in April 2018 Herceptin and Tykerb was stopped and on April 28, 2018 she was started on Kadcyla every 3 weeks and follow-up scans done in 2017 and then in and in 2019 showed stable disease and the last PET scan done on September 19, 2020 showed status post bilateral mastectomy with no focal area of increased activity in the chest, abdomen or pelvis to suggest metastatic disease. Stable minimal reactive fibrotic changes at the lung bases consistent with inflammatory process. New large area of intense activity in the left maxilla could represent dental process. Stable nonmetabolically active sclerotic lesion at L2 and in the right humeral head. On January 31, 2021 patient underwent debridement of necrotic bone left maxilla and bleeding controlled surrounding soft tissue and patient did require 2 units of packed RBC. Xgeva was discontinued on February 09, 2021 due to ONJ, while continue on 3 weekly Kadcyla and for weekly Faslodex History of left lower extremity DVT started on Eliquis on May 28, 2017 stopped on November 26, 2018. History of mild transaminitis AST 137 on January 31, 2021, being monitored Pancreatic cyst seen on CT scan of chest abdomen pelvis in April 2019, she was referred to pancreaticobiliary surgeon, follow-up was recommended Skin rash across chest and left arm, was evaluated by dermatology on December 28, 2019 and impression was spider angiomas due to underlying metastatic disease or hyper estrogen state or medication Left knee stiffness improved with physical therapy. Slightly elevated bilirubin, being observed. Hypoxia, VQ scan done in March 2020 was normal study, was evaluated by Dr. Ty Trevizo on November 27, 2020 who advised her to use home oxygen to keep O2 saturation more than 89% his impression was patient may have ILD chest x-ray done on February 01, 2021 shows stable interstitial prominence within the periphery of both lungs suggestive of drug-related pneumonitis/fibrosis VQ scan done on January 26, 2021 shows no evidence of pulmonary embolism Patient status post maternal Covid vaccine done in September 1999 21-second dose was given on October 13, 2020 CVA as per patient and daughter patient had a fall on January 15, 2021 for which she was admitted to hospital and had CT scan of the brain which was consistent with stroke and she was started on baby aspirin and Lipitor with improvement to mental clarity. 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 likely related to Xgeva or radiation necrosis and due to ongoing bone exposure over left maxilla, now maxillofacial surgical evaluation at [facility] in [place] is under consideration per infectious disease, Her Kadcyla infusion was held during IV ampicillin course and resumed on June 20, 2021 after patient completed 4 weeks course of IV ampicillin Plan: Discussed with patient regarding her labs white blood count 4.9 hemoglobin 11.1 g compared to 10.5 previously hematocrit 35.7 platelets 172,000 CMP within normal limits except ALT 59 compared to 20 previously AST 111 compared to 29 previously bilirubin is normal range at 1 and alkaline phosphatase 136 compared to 120 previously Clinically, patient doing well with no new signs suggestive of disease progression, tolerating 3 weekly Kadcyla and monthly Faslodex well otherwise, will proceed with 3 weekly Kadcyla today and then she will return to clinic in 3 weeks with CBC CMP for next dose of Kadcyla and Faslodex. As far as mildly elevated transaminases concerned, etiology unclear, with normal bilirubin, as per daughter, patient has history of fluctuating transaminases. Possibility could be medications, transient infection/inflammation and, less likely due to Kadcyla but will monitor, if there is a worsening of transaminases or bilirubin, may consider holding next dose of Kadcyla or dose reduction. She will return to clinic in 3 weeks with CBC CMP and will also consider follow-up CT PET scan prior to next visit to assess disease response/status. Patient was advised to call us in case she has any episode of jaundice or right upper quadrant pain Signed By: China Benz M.D. <<Signature on File>>
== END 2021-08-06 09:42 | disposition home or self-care (01) ==
PROVIDERS: PCP Internal Medicine; Visit Provider Internal Medicine Hematology & Oncology
DX: Z51.11 Encounter for antineoplastic chemotherapy (principal); R74.01 Elevation of levels of liver transaminase levels; C71.9 Malignant neoplasm of brain, unspecified; C79.81 Secondary malignant neoplasm of breast; Z90.13 Acquired absence of bilateral breasts and nipples; M86.9 Osteomyelitis, unspecified
CPT/HCPCS: 80053; 85025; 96413; 99215; J7050; J9354

== ENCOUNTER 2021-08-27 09:30 | Outpatient (CLI) | payer MEDICARE, OTHER, SELFPAY ==
[2021-08-27 10:10] LABS: Basophils # 0.2 10^3/uL (0.0-0.1); Basophils % 2.3 %; Eosinophils # 0.3 10^3/uL (0.0-0.8); Eosinophils % 3.8 %; Lymphocytes # 1.7 10^3/uL (0.8-4.8); Lymphocytes % 26.7 %; Mean Corpuscular HGB Conc 31.4 g/dL (30.0-36.0); Mean Corpuscular Hemoglobin 28.8 pg (28.0-34.0); Mean Corpuscular Volume 91.6 fl (81-99); Mean Platelet Volume 10.7 fL (7.4-10.4); Monocytes # 0.9 10^3/uL (0.2-0.9); Monocytes % 14.4 %; Neutrophils # 3.41 10^3/uL (1.8-7.7); Neutrophils % 52.5 %; Nucleated Red Blood Cells % 0 %; Platelet Count 174 10^3/cmm (130-400); Red Blood Count 3.82 10^6/uL (4.1-5.3); Red Cell Distribution Width 18.2 % (12.1-15.1); White Blood Count 6.5 10^3/uL (4.0-10.0)
[2021-08-27 10:40] LABS: Alanine Aminotransferase 29 U/L (0-33); Albumin Level 3.6 g/dL (3.5-5.2); Alkaline Phosphatase 150 IU/L (35-105); Aspartate Amino Transferase 41 U/L (0-32); Blood Urea Nitrogen 19 mg/dL (8-23); Calcium 9.1 mg/dL (8.5-10.5); Carbon Dioxide 27 mmol/L (22-29); Chloride 102 mmol/L (98-107); Globulin 3.5 g/dL (1.3-4.6); Glomerular Filtration Rate 99.7 mL/min (90-130); Glucose 86 mg/dL (65-115); Osmolality Calculated 292 mOsm/kg (285-295); Sodium 140 mmol/L (136-145); Total Bilirubin 1.2 mg/dL (0.15-1.2); Total Protein 7.1 g/dL (6.6-8.7)
[2021-08-27 10:41] LABS: Anion Gap 14.9 (5-19); Potassium 3.9 mmol/L (3.5-5.1)
[2021-08-27] MEDS: fulvestrant 250 mg/5 mL Syringe 500 MG IM (13:55)
== END 2021-08-27 09:31 | disposition home or self-care (01) ==
LOC: ONCMED 09:32
PROVIDERS: PCP Internal Medicine; Visit Provider Nurse Practitioner Family
DX: Z51.11 Encounter for antineoplastic chemotherapy (principal); C50.812 Malignant neoplasm of overlapping sites of left female breast; Z17.0 Estrogen receptor positive status [ER+]; C79.31 Secondary malignant neoplasm of brain; C79.51 Secondary malignant neoplasm of bone; Z90.13 Acquired absence of bilateral breasts and nipples; Z86.718 Personal history of other venous thrombosis and embolism; Z79.01 Long term (current) use of anticoagulants; K86.2 Cyst of pancreas; L27.1 Localized skin eruption due to drugs and medicaments taken internally; M25.662 Stiffness of left knee, not elsewhere classified; E80.7 Disorder of bilirubin metabolism, unspecified; R09.02 Hypoxemia; Z86.73 Personal history of transient ischemic attack (TIA), and cerebral infarction without residual deficits; M86.9 Osteomyelitis, unspecified; Z79.2 Long term (current) use of antibiotics; Z79.818 Long term (current) use of other agents affecting estrogen receptors and estrogen levels; Z79.899 Other long term (current) drug therapy
CPT/HCPCS: 80053; 85025; 96402; 96413; 99215; J7050; J9354; J9395

== ENCOUNTER 2021-09-17 08:04 | Outpatient (CLI) | payer MEDICARE, OTHER, SELFPAY ==
[2021-09-17 08:54] LABS: Basophils # 0.2 10^3/uL (0.0-0.1); Basophils % 2.6 %; Eosinophils # 0.5 10^3/uL (0.0-0.8); Eosinophils % 8.5 %; Hematocrit 32.7 % (37.0-47.0); Lymphocytes % 33.2 %; Mean Corpuscular HGB Conc 30.6 g/dL (30.0-36.0); Mean Corpuscular Hemoglobin 27.6 pg (28.0-34.0); Mean Corpuscular Volume 90.3 fl (81-99); Mean Platelet Volume 10.8 fL (7.4-10.4); Monocytes # 0.6 10^3/uL (0.2-0.9); Monocytes % 10.2 %; Neutrophils # 2.66 10^3/uL (1.8-7.7); Neutrophils % 45.2 %; Nucleated Red Blood Cells % 0 %; Platelet Count 198 10^3/cmm (130-400); Red Blood Count 3.62 10^6/uL (4.1-5.3); Red Cell Distribution Width 18.7 % (12.1-15.1); White Blood Count 5.9 10^3/uL (4.0-10.0)
[2021-09-17 09:18] LABS: Alanine Aminotransferase 53 U/L (0-33); Albumin Level 3.7 g/dL (3.5-5.2); Alkaline Phosphatase 177 IU/L (35-105); Anion Gap 13.7 (5-19); Aspartate Amino Transferase 44 U/L (0-32); Blood Urea Nitrogen 20 mg/dL (8-23); Calcium 10.1 mg/dL (8.5-10.5); Carbon Dioxide 25 mmol/L (22-29); Chloride 103 mmol/L (98-107); Glomerular Filtration Rate 123.1 mL/min (90-130); Glucose 78 mg/dL (65-115); Osmolality Calculated 287 mOsm/kg (285-295); Potassium 3.7 mmol/L (3.5-5.1); Sodium 138 mmol/L (136-145); Total Bilirubin 1.2 mg/dL (0.15-1.2); Total Protein 7.7 g/dL (6.6-8.7)
[2021-09-17] MEDS: sodium chloride 0.9% 250 ML 300 ML IV (10:40)
[2021-09-17 11:23] LABS: Ferritin 37 ng/mL (15-150); Iron 46 ug/dL (37-145); Percent Saturation 13.4 % (20-50); Total Iron Binding Capacity 342 mcg/dl; Unsaturated Iron Binding 296 ug/dL (112-347)
== END 2021-09-17 08:05 | disposition home or self-care (01) ==
LOC: ONCMED 08:07
PROVIDERS: PCP Internal Medicine; Visit Provider Nurse Practitioner Family
DX: Z51.11 Encounter for antineoplastic chemotherapy (principal); C50.919 Malignant neoplasm of unspecified site of unspecified female breast; D64.9 Anemia, unspecified
CPT/HCPCS: 80053; 82728; 83540; 83550; 85025; 96413; 99215; J7050; J9354

== ENCOUNTER 2021-09-18 13:38 | Outpatient (CLI) | payer MEDICARE, OTHER, SELFPAY ==
--- NOTE | 2021-09-18 13:50 | USCV_ITS ---
Yenifer Ríos Age: 65 Gender: F : 1955 Exam Date: 09/18/2021 14:16 Ordering Phys: Jumana Vázquez POST [employer]LE DIGGER Technologist: MICHELLE Exam Location: [facility] [place] Indication: BRAIN CANCER BP: 112 / 70 HR: 62 Rhythm: Sinus Technical Quality: Adequate MEASUREMENTS (Male / Female) Normal Values 2D ECHO LV Diastolic Diameter PLAX 3.1 cm 4.2 - 5.9 / 3.9 - 5.3 cm LV Systolic Diameter PLAX 2.2 cm IVS Diastolic Thickness 1.2 cm 0.6 - 1.0 / 0.6 - 0.9 cm IVS Systolic Thickness 0.8 cm LVPW Diastolic Thickness 0.9 cm 0.6 - 1.0 / 0.6 - 0.9 cm LVPW Systolic Thickness 1.3 cm LVOT Diameter 2.0 cm LV Ejection Fraction 2D Teich 55.7 % LV Ejection Fraction MOD 2C 63.8 % LV Ejection Fraction 2C AL 64.2 % LA Diameter 3.1 cm Aorta at Sinotubular Diameter 2.3 cm M-MODE Aortic Annulus Diameter 3.4 cm LA Ao Ratio MM 0.8 MV E Point Septal Separation 1.0 cm FINDINGS Left Ventricle Normal left ventricular size, systolic function and mildly increased wall thickness, with no regional wall motion abnormalities. Left ventricular ejection fraction is estimated at 70-75 %. Right Ventricle Normal right ventricular size and systolic function. Right Atrium Normal right atrial size. Left Atrium Mildly increased left atrial size. Mitral Valve Moderate mitral annular calcification. There seems to be systolic anterior motion of anterior mitral leaflet. Aortic Valve Mildly thickened trileaflet aortic valve. No aortic valve stenosis. Tricuspid Valve Structurally normal tricuspid valve. Pulmonic Valve Pulmonic valve not well visualized. Pericardium No pericardial effusion. Aorta Normal-sized aortic root. CONCLUSIONS 1. This is a limited 2D echocardiogram. 2. Normal left ventricular size, systolic function and mildly increased wall thickness, with no regional wall motion abnormalities. Left ventricular ejection fraction is estimated at 70-75 %. 3. Normal right ventricular size and systolic function. 4. Moderate mitral annular calcification. There seems to be systolic anterior motion of anterior mitral leaflet. 5. When compared to previous echocardiogram dated 02/26/2021, there may not have been any significant change. Sakina Flores MD (Electronically Signed) Final Date: 19 September 2021 14:33 S
== END 2021-09-18 13:39 | disposition home or self-care (01) ==
LOC: RAD 13:45
PROVIDERS: PCP Internal Medicine; Visit Provider Nurse Practitioner Family
DX: C79.31 Secondary malignant neoplasm of brain (principal); I70.0 Atherosclerosis of aorta
CPT/HCPCS: 93308

== ENCOUNTER 2021-09-26 09:49 | Outpatient (CLI) | payer MEDICARE, OTHER, SELFPAY ==
[2021-09-26] MEDS: fulvestrant 250 mg/5 mL Syringe 500 MG IM (10:18)
== END 2021-09-26 09:50 | disposition home or self-care (01) ==
PROVIDERS: PCP Internal Medicine; Visit Provider Nurse Practitioner Family
DX: C56.2 Malignant neoplasm of left ovary (principal); C79.51 Secondary malignant neoplasm of bone; C79.31 Secondary malignant neoplasm of brain; Z79.818 Long term (current) use of other agents affecting estrogen receptors and estrogen levels
CPT/HCPCS: 96402; J9395

== ENCOUNTER 2021-10-08 08:28 | Outpatient (CLI) | payer MEDICARE, OTHER, SELFPAY ==
[2021-10-08 08:55] LABS: Basophils # 0.1 10^3/uL (0.0-0.1); Basophils % 1.8 %; Eosinophils # 0.5 10^3/uL (0.0-0.8); Eosinophils % 6.6 %; Hematocrit 30.7 % (37.0-47.0); Hemoglobin 9.6 g/dL (11.5-15.3); Lymphocytes # 2.4 10^3/uL (0.8-4.8); Lymphocytes % 32.5 %; Mean Corpuscular HGB Conc 31.3 g/dL (30.0-36.0); Mean Corpuscular Volume 89.5 fl (81-99); Monocytes # 0.9 10^3/uL (0.2-0.9); Monocytes % 11.8 %; Neutrophils # 3.41 10^3/uL (1.8-7.7); Nucleated Red Blood Cells % 0 %; Platelet Count 196 10^3/cmm (130-400); Red Blood Count 3.43 10^6/uL (4.1-5.3); Red Cell Distribution Width 19.1 % (12.1-15.1); White Blood Count 7.3 10^3/uL (4.0-10.0)
[2021-10-08 09:22] LABS: Alanine Aminotransferase 15 U/L (0-33); Albumin Level 3.7 g/dL (3.5-5.2); Alkaline Phosphatase 167 IU/L (35-105); Anion Gap 13.9 (5-19); Aspartate Amino Transferase 26 U/L (0-32); Blood Urea Nitrogen 19 mg/dL (8-23); Carbon Dioxide 26 mmol/L (22-29); Chloride 103 mmol/L (98-107); Globulin 3.9 g/dL (1.3-4.6); Glomerular Filtration Rate 123.1 mL/min (90-130); Glucose 83 mg/dL (65-115); Osmolality Calculated 289 mOsm/kg (285-295); Potassium 3.9 mmol/L (3.5-5.1); Sodium 139 mmol/L (136-145); Total Bilirubin 1.4 mg/dL (0.15-1.2); Total Protein 7.6 g/dL (6.6-8.7)
--- NOTE | 2021-10-10 18:03 | ONC FU_ITS ---
Dr. Benz follow up note Patient: Yenifer Ríos Unit #: [id number]: 1955 Dicatated By: China Benz M.D.Date of Visit:Oct 08, 2021 Onc Med Follow-up/Prog Note History of Present Illness: This is a 65 year old woman who presented with clinical symptoms of umbilical hernia. Preoperative Ca-125 was 255 on 03/12/12. On 03/26/12 she underwent exploratory laparotomy and surgical debulking with total abdominal hysterectomy, bilateral oophorectomies with an block rectosigmoid resection and anastomosis, inguinal lymph node dissection. 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 3/20 lymph nodes were involved. Thus, pathological T3c N1 M1 (abdominal wall) FIGO stage IV. Left sided Port-A-Cath was placed. She was first seen on 04/15/12. Her baseline CT of chest abdomen and pelvis on 04/28/12 showed postoperative changes with seromas, but no evidence of recurrent disease, adenopathy or metastatic lesion. Ca-125 decreased to 74.9. Palliative chemotherapy with Carboplatin AUC of 6 and Paclitaxel 175 mg/m2 for six cycles every 3 weeks was recommenced. The chemotherapy was initiated on 04/28/12, complicated with grade 3 neutropenia without infections requiring further growth factor support. Her restaging CT of the chest abdomen and pelvis on 07/09/12, after 4 cycles of treatment, showed decreased postsurgical fluid collections and no evidence of disease progression. Cycle 6 was completed on 08/11/12. CEA 13.3. After that, patient moved to [place], where, in 2014 she went to [facility] with abnormal left breast mammogram, biopsy confirmed, subsequently underwent neoadjuvant chemotherapy with Taxotere/Herceptin/Perjeta for ER positive MD negative HER-2/eric positive disease followed by bilateral mastectomy which confirmed 8 out of 19 positive lymph node, e.g. yT2, yN2A, ER 94% positive MD 0% HER-2/eric 3+ by FISH stage III followed by Arimidex, and in early 2015 patient developed lesion on the left breast skin, excisional biopsy done on November 23, 2015 showed dermal cutaneous nodule of recurrence IDC of breast, grade 3, main tumor nodule measured 1.5 cm size and does not directly involve the margin. At least one satellite nodule of tumor measuring 0.2 cm in size with extensive lymphatic invasion by tumor including lymphatic channel adjacent to the margin concerning for skin/chest wall recurrence at the left reconstruction site. And brain mets CT PET scan done in January 2017 showed right glenohumeral joint lesion about 2.5 cm, MRI of right shoulder done in March 2017 showed 3.6 x 2.5 x 3.4 cm bone marrow lesion within the medial right humeral head consistent with sclerotic metastatic disease CT-guided biopsy was done which confirmed metastatic carcinoma consistent with breast primary ER positive MD negative HER-2/eric positive patient completed whole brain radiation therapy on on March 28, 2017 follow-up CT brain done in February 2018 showed no brain mets. Patient also had left excisional breast biopsy done in January 2017 showed high-grade IDC with dermal lymphatic invasion ER positive MD negative HER-2/eric positive, at that time she was placed on lapatinib 1250 mg p.o. daily which is used as systemic therapy to target HER-2/eric positive metastatic breast cancer, Faslodex was started on March 25, 2017, Herceptin started on March 20, 2017, Xgeva was started on June 17, 2017, on April 07, 2018 Herceptin and Tykerb was stopped and on April 28, 2018 patient was started on Kadcyla patient was referred to radiation oncology regarding radiation therapy to the right humerus but at that time he was decided to hold off radiation. Follow-up CT PET scan done on July 05 showed response to the treatment follow-up CT scan and bone scan done in November 2018 showed stable disease and follow-up CT scan of brain done on January 19, 2019 showed no brain mets but mild small vessel ischemic changes for which she was referred to neurology. Follow-up CT PET scan done in April 2019 shows stable disease but nonspecific tiny focus of FDG accumulation right third rib for which she was referred to pulmonology to address lung changes seen on CT scan on June 18, 2019 patient had a bone scan done which shows stable disease and her echocardiogram done on June 08, 2019 shows ejection fraction 65 to 70% and her follow-up CT PET scan done in November 2019 shows stable disease then repeat follow-up CT PET scan done on March 21, 2020 shows stable disease On April 06, 2020 patient had TTE which showed ejection fraction 74% Follow-up CT PET scan done in September 2020 shows status post bilateral mastectomy with no focal area of increased activity in the chest abdomen or pelvis to suggest metastatic disease. Stable minimally active fibrotic changes at the lung bases posteriorly most consistent with inflammatory process. New large area of intense activity in the left maxilla which could represent dental process. Stable nonmetabolically active sclerotic lesion at L2 and in the large humeral head. On January 31, 2022 February 03, 2020 patient underwent debridement of necrotic bone left maxilla and bleeding controlled surrounding soft tissue with Dr. Marlo Purvis. Oral surgery. Postop finding were necrotic bone with sharp margins adjacent bleeding granulation tissue. Patient received 2 units of packed RBC. On February 09, 2021 Xgeva was discontinued due to ONJ. While continue with Kadcyla every 3 weeks and Faslodex every 4 weeks History of left lower extremity DVT patient was started on Eliquis on May 28, 2017 and Eliquis was stopped on November 26, 2018. History of skin rash across chest and on left arm seen by dermatology on December 28, 2019 and impression was spider angiomas may be due to underlying metastatic disease or hyper estrogen state versus liver disease from metastatic disease. History of left knee stiffness improved with physical therapy.,'s history of slightly elevated bilirubin around one-point being observed. History of hypoxia, VQ scan done on March 13, 2020 was normal study no history of PE., Stroke per patient and daughter patient had a fall on January 15, 2021 which prompted hospital stay and CT scan of head apparently revealed evidence of stroke she was started on baby aspirin and Lipitor with improvement to mental clarity On January 26, 2021 VQ scan lung shows no evidence of pulmonary embolism Patient has moved to [place] and now here to establish care. Denies any specific complaints, no fever chills, no nausea or vomiting, no diarrhea or constipation, only mild lower extremity edema, as per patient she traveled via car from [place] to [place] recently may have caused this edema. Denies any lower extremity pain denies any new bony pain denies any headaches blurred vision or double vision denies any shortness of breath or chest pain or palpitation. 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 Follow-up echocardiogram done on September 18, 2021 shows ejection fraction 70 to 75%. Came for follow-up, denies any specific complaint except mild swelling in the right foot since patient had a fall, now recovering, denies any leg swelling, denies any numbness, denies any pain, denies any nausea or vomiting denies any fever chills denies any new bony pains, denies any jaundice denies any abdominal pain denies any sore throat denies any dysuria or hematuria denies any chest pain or palpitation. Tolerating Kadcyla/Faslodex well otherwise Medications: Amoxicillin-Pot Clavulanate 1 Tablet (of 875-125 mg) Oral t.i.d., Aspirin 81 1 Tablet (of 81 mg) Tablet, chewable Oral daily, Atorvastatin Calcium 1 (80 mg) Tablet Oral daily, Calcium Tablet Oral, Clopidogrel Bisulfate 1 (75 mg) Tablet Oral daily, Magnesium 1 Tablet (of 250 mg) Oral daily, MiraLax Powder Oral daily PRN, Pantoprazole Sodium (40 mg) Tablet, enteric coated Oral daily Allergies: Iodinated Contrast Media Review of Systems: Review of Systems is not available for this patient. Vital Signs: Performed on Oct 08, 2021 11:47 Height - 9.00 in Weight - 158.6 lbs (HIGH) BSA - 0.43 sq.m BMI - 1,376.65 (HIGH) Temperature - 97.4 F (LOW) Pulse - 84 /min Respiration - 16 /min BP - 120/60 mm(hg) O2 Sat - 93 % (LOW) Pain - 0 Fatigue - 5 Performance Status: 2 - Ambulatory/capable of all self-care, unable to perform any work activities. Up and about more than 50% of waking hours. (ECOG) Physical Examination: ENMT - No mouth sores, no thrush, no jaundice, Respiratory - Lungs are clear to auscultation, Cardiovascular - Regular rate and rhythm of heart, Abdomen - Soft, bowel sounds present, Extremities - Trace edema right foot no overlying skin changes, nontender. Lab/Imaging: Test performed on Sep 17, 2021 08:30 Sodium 138 mmol/L Potassium 3.7 mmol/L Chloride 103 mmol/L CO2 25 mmol/L Anion Gap 13.7 BUN 20 mg/dL Creatinine 0.5 mg/dL Cr Clearance (Est) 120.0900 mL/min eGFR 123.1 mL/min Glucose 78 mg/dL Osmolality - Calculated 287 mOsm/kg Calcium 10.1 mg/dL Protein, Total 7.7 g/dL Albumin 3.7 g/dL Globulin 4.0 g/dL Bilirubin, Total 1.2 mg/dL ALT (SGPT) 53 U/L AST (SGOT) 44 U/L Alkaline Phosphatase 177 IU/L WBC 5.9 10 3/uL RBC 3.62 10 6/uL HGB 10.0 g/dL HCT 32.7 % MCV 90.3 fl MCH 27.6 pg MCHC 30.6 g/dL RDW 18.7 % Platelet Count 198 10 3/cmm MPV 10.8 fL Neutrophils 2.66 10 3/uL Lymphocytes 2.0 10 3/uL Monocytes 0.6 10 3/uL Eosinophils 0.5 10 3/uL Basophils 0.2 10 3/uL Neutrophil % 45.2 % Lymphocyte % 33.2 % Monocyte % 10.2 % Eosinophil % 8.5 % Basophils % 2.6 % NRBC % 0 % Test performed on Jul 16, 2021 10:39 NRBC 0 /100 WBC Test performed on Jul 02, 2021 15:52 Manual Lymphocytes 45.0 % Manual Monocytes 11.3 % Manual Eosinophils 8.0 % Manual Basophils 1.3 % Impression: Metastatic invasive ductal carcinoma involving brain status post radiation therapy and multiple bone lesions including biopsy-proven right humeral head in March 2017, at that time she was referred to radiation and patient received whole brain radiation therapy and completed on March 28, 2017 but no radiation was considered to right humerus. Earlier patient was diagnosed with left breast cancer in 2014, at that time she underwent neoadjuvant chemotherapy with Taxotere/Herceptin/Perjeta x6 followed by bilateral mastectomy which showed yT2 ,y N2A, MX stage III followed by Arimidex and then in January 2017 she underwent left breast excisional biopsy which showed high-grade IDC with dermal lymphatic invasion ER positive MD negative HER-2/eric positive, at that time she was placed on lapatinib 1250 mg p.o. daily, Faslodex was started on March 25, 2017 and Herceptin was added on March 20, 2017 and Xgeva was started on June 17, 2017, in April 2018 Herceptin and Tykerb was stopped and on April 28, 2018 she was started on Kadcyla every 3 weeks and follow-up scans done in 2017 and then in and in 2019 showed stable disease and the last PET scan done on September 19, 2020 showed status post bilateral mastectomy with no focal area of increased activity in the chest, abdomen or pelvis to suggest metastatic disease. Stable minimal reactive fibrotic changes at the lung bases consistent with inflammatory process. New large area of intense activity in the left maxilla could represent dental process. Stable nonmetabolically active sclerotic lesion at L2 and in the right humeral head. On January 31, 2021 patient underwent debridement of necrotic bone left maxilla and bleeding controlled surrounding soft tissue and patient did require 2 units of packed RBC. Xgeva was discontinued on February 09, 2021 due to ONJ, while continue on 3 weekly Kadcyla and for weekly Faslodex History of left lower extremity DVT started on Eliquis on May 28, 2017 stopped on November 26, 2018. History of mild transaminitis AST 137 on January 31, 2021, being monitored Pancreatic cyst seen on CT scan of chest abdomen pelvis in April 2019, she was referred to pancreaticobiliary surgeon, follow-up was recommended Skin rash across chest and left arm, was evaluated by dermatology on December 28, 2019 and impression was spider angiomas due to underlying metastatic disease or hyper estrogen state or medication Left knee stiffness improved with physical therapy. Slightly elevated bilirubin, being observed. Hypoxia, VQ scan done in March 2020 was normal study, was evaluated by Dr. Ty Trevizo on November 27, 2020 who advised her to use home oxygen to keep O2 saturation more than 89% his impression was patient may have ILD chest x-ray done on February 01, 2021 shows stable interstitial prominence within the periphery of both lungs suggestive of drug-related pneumonitis/fibrosis VQ scan done on January 26, 2021 shows no evidence of pulmonary embolism Patient status post maternal Covid vaccine done in September 1999 21-second dose was given on October 13, 2020 CVA as per patient and daughter patient had a fall on January 15, 2021 for which she was admitted to hospital and had CT scan of the brain which was consistent with stroke and she was started on baby aspirin and Lipitor with improvement to mental clarity. 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 likely related to Xgeva or radiation necrosis and due to ongoing bone exposure over left maxilla, now maxillofacial surgical evaluation at [facility] in [place] is under consideration per infectious disease, Her Kadcyla infusion was held during IV ampicillin course and resumed on June 20, 2021 after patient completed 4 weeks course of IV ampicillin PET scan was performed on 08/18/2021 and compared to the PET scan study of February 2021. The impression included #1 postsurgical changes as above. #2 stable sterilized osseous metastatic disease. #3 - for malignancy. #4 no significant change in findings since the prior PET/CT study of February 2021 Follow-up echocardiogram done on September showed ejection fraction 70 to 75% Plan: . Discussed with patient regarding her labs white blood count 7.3 hemoglobin 9.6 hematocrit 30.7 platelets 196,000 ANC 3410 CMP within normal limits except alk phos 167 anemia work-up done on September 17, 2021 showed iron saturation 13.4% iron 46, ferritin 37 TIBC 342 Clinically, patient is doing well with no new signs symptoms history of disease progression, tolerating Kadcyla/Faslodex well, will proceed with next scheduled dose of Kadcyla today, her follow-up echocardiogram done in September 2021 shows excellent ejection fraction and her follow-up CT PET scan done in August 2021 showed excellent response with no active disease and sterilized bone mets. As far as anemia is concerned, her anemia work-up shows low iron saturation and ferritin the lower side of normal range, will consider trial of oral iron, if not tolerated, may consider parenteral iron. Return to clinic in 3 weeks with CBC CMP Signed By: China Benz M.D. <<Signature on File>>
== END 2021-10-08 08:29 | disposition home or self-care (01) ==
PROVIDERS: Internal Medicine Hematology & Oncology; PCP Internal Medicine; Visit Provider Nurse Practitioner Family
DX: Z51.11 Encounter for antineoplastic chemotherapy (principal); C50.919 Malignant neoplasm of unspecified site of unspecified female breast; C79.31 Secondary malignant neoplasm of brain; Z86.718 Personal history of other venous thrombosis and embolism; M86.9 Osteomyelitis, unspecified; Z79.01 Long term (current) use of anticoagulants; Z86.73 Personal history of transient ischemic attack (TIA), and cerebral infarction without residual deficits; Z79.899 Other long term (current) drug therapy
CPT/HCPCS: 80053; 85025; 96413; 99215; J7050; J9354

== ENCOUNTER 2021-10-29 08:19 | Outpatient (CLI) | payer MEDICARE, OTHER, SELFPAY ==
[2021-10-29 08:53] LABS: Basophils # 0.2 10^3/uL (0.0-0.1); Basophils % 2.6 %; Eosinophils # 0.4 10^3/uL (0.0-0.8); Eosinophils % 6.5 %; Hematocrit 31.6 % (37.0-47.0); Hemoglobin 9.8 g/dL (11.5-15.3); Lymphocytes % 34.8 %; Mean Corpuscular Hemoglobin 27.1 pg (28.0-34.0); Mean Corpuscular Volume 87.3 fl (81-99); Mean Platelet Volume 10.2 fL (7.4-10.4); Monocytes # 0.6 10^3/uL (0.2-0.9); Monocytes % 10.8 %; Neutrophils # 2.63 10^3/uL (1.8-7.7); Neutrophils % 45.1 %; Nucleated Red Blood Cells % 0 %; Platelet Count 181 10^3/cmm (130-400); Red Blood Count 3.62 10^6/uL (4.1-5.3); Red Cell Distribution Width 18.9 % (12.1-15.1); White Blood Count 5.8 10^3/uL (4.0-10.0)
[2021-10-29 09:12] LABS: Alanine Aminotransferase 23 U/L (0-33); Albumin Level 3.6 g/dL (3.5-5.2); Alkaline Phosphatase 148 IU/L (35-105); Aspartate Amino Transferase 42 U/L (0-32); Blood Urea Nitrogen 18 mg/dL (8-23); Calcium 9.9 mg/dL (8.5-10.5); Carbon Dioxide 25 mmol/L (22-29); Chloride 99 mmol/L (98-107); Globulin 3.6 g/dL (1.3-4.6); Glomerular Filtration Rate 83.5 mL/min (90-130); Glucose 88 mg/dL (65-115); Osmolality Calculated 285 mOsm/kg (285-295); Sodium 137 mmol/L (136-145); Total Bilirubin 1.2 mg/dL (0.15-1.2); Total Protein 7.2 g/dL (6.6-8.7)
[2021-10-29 09:14] LABS: Anion Gap 16.9 (5-19); Potassium 3.9 mmol/L (3.5-5.1)
[2021-10-29] MEDS: fulvestrant 250 mg/5 mL Syringe 500 MG IM (12:10)
--- NOTE | 2021-10-29 14:49 | ONC FU_ITS ---
Dr. Benz follow up note Patient: Yenifer Ríos Unit #: [id number]: [id number] Dicatated By: China Benz M.D.Date of Visit:Oct 29, 2021 Onc Med Follow-up/Prog Note History of Present Illness: This is a 65 year old woman who initially presented with clinical symptoms of umbilical hernia. Preoperative Ca-125 was 255 on 03/12/12. On 03/26/12 she underwent exploratory laparotomy and surgical debulking with total abdominal hysterectomy, bilateral oophorectomies with an block rectosigmoid resection and anastomosis, inguinal lymph node dissection. 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 3/20 lymph nodes were involved. Thus, pathological T3c N1 M1 (abdominal wall) FIGO stage IV. Left sided Port-A-Cath was placed. She was first seen on 04/15/12. Her baseline CT of chest abdomen and pelvis on 04/28/12 showed postoperative changes with seromas, but no evidence of recurrent disease, adenopathy or metastatic lesion. Ca-125 decreased to 74.9. Palliative chemotherapy with Carboplatin AUC of 6 and Paclitaxel 175 mg/m2 for six cycles every 3 weeks was recommenced. The chemotherapy was initiated on 04/28/12, complicated with grade 3 neutropenia without infections requiring further growth factor support. Her restaging CT of the chest abdomen and pelvis on 07/09/12, after 4 cycles of treatment, showed decreased postsurgical fluid collections and no evidence of disease progression. Cycle 6 was completed on 08/11/12. CEA 13.3. After that, patient moved to [place], where, in 2014 she went to [facility] with abnormal left breast mammogram, biopsy confirmed, subsequently underwent neoadjuvant chemotherapy with Taxotere/Herceptin/Perjeta for ER positive WA negative HER-2/eric positive disease followed by bilateral mastectomy which confirmed 8 out of 19 positive lymph node, e.g. yT2, yN2A, ER 94% positive WA 0% HER-2/eric 3+ by FISH stage III followed by Arimidex, and in early 2015 patient developed lesion on the left breast skin, excisional biopsy done on November 23, 2015 showed dermal cutaneous nodule of recurrence IDC of breast, grade 3, main tumor nodule measured 1.5 cm size and does not directly involve the margin. At least one satellite nodule of tumor measuring 0.2 cm in size with extensive lymphatic invasion by tumor including lymphatic channel adjacent to the margin concerning for skin/chest wall recurrence at the left reconstruction site. And brain mets CT PET scan done in January 2017 showed right glenohumeral joint lesion about 2.5 cm, MRI of right shoulder done in March 2017 showed 3.6 x 2.5 x 3.4 cm bone marrow lesion within the medial right humeral head consistent with sclerotic metastatic disease CT-guided biopsy was done which confirmed metastatic carcinoma consistent with breast primary ER positive WA negative HER-2/eric positive patient completed whole brain radiation therapy on on March 28, 2017 follow-up CT brain done in February 2018 showed no brain mets. Patient also had left excisional breast biopsy done in January 2017 showed high-grade IDC with dermal lymphatic invasion ER positive WA negative HER-2/eric positive, at that time she was placed on lapatinib 1250 mg p.o. daily which is used as systemic therapy to target HER-2/eric positive metastatic breast cancer, Faslodex was started on March 25, 2017, Herceptin started on March 20, 2017, Xgeva was started on June 17, 2017, on April 07, 2018 Herceptin and Tykerb was stopped and on April 28, 2018 patient was started on Kadcyla patient was referred to radiation oncology regarding radiation therapy to the right humerus but at that time he was decided to hold off radiation. Follow-up CT PET scan done on July 05 showed response to the treatment follow-up CT scan and bone scan done in November 2018 showed stable disease and follow-up CT scan of brain done on January 19, 2019 showed no brain mets but mild small vessel ischemic changes for which she was referred to neurology. Follow-up CT PET scan done in April 2019 shows stable disease but nonspecific tiny focus of FDG accumulation right third rib for which she was referred to pulmonology to address lung changes seen on CT scan on June 18, 2019 patient had a bone scan done which shows stable disease and her echocardiogram done on June 08, 2019 shows ejection fraction 65 to 70% and her follow-up CT PET scan done in November 2019 shows stable disease then repeat follow-up CT PET scan done on March 21, 2020 shows stable disease On April 06, 2020 patient had TTE which showed ejection fraction 74% Follow-up CT PET scan done in September 2020 shows status post bilateral mastectomy with no focal area of increased activity in the chest abdomen or pelvis to suggest metastatic disease. Stable minimally active fibrotic changes at the lung bases posteriorly most consistent with inflammatory process. New large area of intense activity in the left maxilla which could represent dental process. Stable nonmetabolically active sclerotic lesion at L2 and in the large humeral head. On January 31, 2022 February 03, 2020 patient underwent debridement of necrotic bone left maxilla and bleeding controlled surrounding soft tissue with Dr. Marlo Purvis. Oral surgery. Postop finding were necrotic bone with sharp margins adjacent bleeding granulation tissue. Patient received 2 units of packed RBC. On February 09, 2021 Xgeva was discontinued due to ONJ. While continue with Kadcyla every 3 weeks and Faslodex every 4 weeks History of left lower extremity DVT patient was started on Eliquis on May 28, 2017 and Eliquis was stopped on November 26, 2018. History of skin rash across chest and on left arm seen by dermatology on December 28, 2019 and impression was spider angiomas may be due to underlying metastatic disease or hyper estrogen state versus liver disease from metastatic disease. History of left knee stiffness improved with physical therapy.,'s history of slightly elevated bilirubin around one-point being observed. History of hypoxia, VQ scan done on March 13, 2020 was normal study no history of PE., Stroke per patient and daughter patient had a fall on January 15, 2021 which prompted hospital stay and CT scan of head apparently revealed evidence of stroke she was started on baby aspirin and Lipitor with improvement to mental clarity On January 26, 2021 VQ scan lung shows no evidence of pulmonary embolism Patient has moved to [place] and now here to establish care. Denies any specific complaints, no fever chills, no nausea or vomiting, no diarrhea or constipation, only mild lower extremity edema, as per patient she traveled via car from [place] to [place] recently may have caused this edema. Denies any lower extremity pain denies any new bony pain denies any headaches blurred vision or double vision denies any shortness of breath or chest pain or palpitation. 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 Follow-up echocardiogram done on September 18, 2021 shows ejection fraction 70 to 75%. Came for follow-up, denies any specific complaints except generalized weakness and fatigue, no fever chills, no nausea or vomiting, no diarrhea or constipation, no melena or hematochezia, no hemoptysis hematemesis, no new bony pains, tolerating Kadcyla/Faslodex well otherwise Medications: Amoxicillin-Pot Clavulanate 1 Tablet (of 875-125 mg) Oral t.i.d., Aspirin 81 1 Tablet (of 81 mg) Tablet, chewable Oral daily, Atorvastatin Calcium 1 (80 mg) Tablet Oral daily, Calcium Tablet Oral, Clopidogrel Bisulfate 1 (75 mg) Tablet Oral daily, Magnesium 1 Tablet (of 250 mg) Oral daily, MiraLax Powder Oral daily PRN, Pantoprazole Sodium (40 mg) Tablet, enteric coated Oral daily Allergies: Iodinated Contrast Media Review of Systems: Review of Systems is not available for this patient. Vital Signs: Performed on Oct 29, 2021 10:36 Weight - 157.2 lbs (LOW) BSA - 0.00 sq.m BMI - 0.00 Temperature - 97.7 F (LOW) Pulse - 82 /min Respiration - 16 /min BP - 121/73 mm(hg) O2 Sat - 91 % (LOW) Pain - 0 Fatigue - 4 Performance Status: 2 - Ambulatory/capable of all self-care, unable to perform any work activities. Up and about more than 50% of waking hours. (ECOG) Physical Examination: ENMT - No mouth sores, no thrush, no jaundice, no cervical lymphadenopathy, Respiratory - Lungs are clear to auscultation, Cardiovascular - Regular rate and rhythm of heart, Abdomen - Soft, bowel sounds present, Extremities - No visible edema or rash. Lab/Imaging: Test performed on Sep 17, 2021 08:30 Sodium 138 mmol/L Potassium 3.7 mmol/L Chloride 103 mmol/L CO2 25 mmol/L Anion Gap 13.7 BUN 20 mg/dL Creatinine 0.5 mg/dL Cr Clearance (Est) 120.0900 mL/min eGFR 123.1 mL/min Glucose 78 mg/dL Osmolality - Calculated 287 mOsm/kg Calcium 10.1 mg/dL Protein, Total 7.7 g/dL Albumin 3.7 g/dL Globulin 4.0 g/dL Bilirubin, Total 1.2 mg/dL ALT (SGPT) 53 U/L AST (SGOT) 44 U/L Alkaline Phosphatase 177 IU/L WBC 5.9 10 3/uL RBC 3.62 10 6/uL HGB 10.0 g/dL HCT 32.7 % MCV 90.3 fl MCH 27.6 pg MCHC 30.6 g/dL RDW 18.7 % Platelet Count 198 10 3/cmm MPV 10.8 fL Neutrophils 2.66 10 3/uL Lymphocytes 2.0 10 3/uL Monocytes 0.6 10 3/uL Eosinophils 0.5 10 3/uL Basophils 0.2 10 3/uL Neutrophil % 45.2 % Lymphocyte % 33.2 % Monocyte % 10.2 % Eosinophil % 8.5 % Basophils % 2.6 % NRBC % 0 % Test performed on Jul 16, 2021 10:39 NRBC 0 /100 WBC Test performed on Jul 02, 2021 15:52 Manual Lymphocytes 45.0 % Manual Monocytes 11.3 % Manual Eosinophils 8.0 % Manual Basophils 1.3 % Impression: Metastatic invasive ductal carcinoma involving brain status post radiation therapy and multiple bone lesions including biopsy-proven right humeral head in March 2017, at that time she was referred to radiation and patient received whole brain radiation therapy and completed on March 28, 2017 but no radiation was considered to right humerus. Earlier patient was diagnosed with left breast cancer in 2014, at that time she underwent neoadjuvant chemotherapy with Taxotere/Herceptin/Perjeta x6 followed by bilateral mastectomy which showed yT2 ,y N2A, MX stage III followed by Arimidex and then in January 2017 she underwent left breast excisional biopsy which showed high-grade IDC with dermal lymphatic invasion ER positive WA negative HER-2/eric positive, at that time she was placed on lapatinib 1250 mg p.o. daily, Faslodex was started on March 25, 2017 and Herceptin was added on March 20, 2017 and Xgeva was started on June 17, 2017, in April 2018 Herceptin and Tykerb was stopped and on April 28, 2018 she was started on Kadcyla every 3 weeks and follow-up scans done in 2017 and then in and in 2019 showed stable disease and the last PET scan done on September 19, 2020 showed status post bilateral mastectomy with no focal area of increased activity in the chest, abdomen or pelvis to suggest metastatic disease. Stable minimal reactive fibrotic changes at the lung bases consistent with inflammatory process. New large area of intense activity in the left maxilla could represent dental process. Stable nonmetabolically active sclerotic lesion at L2 and in the right humeral head. On January 31, 2021 patient underwent debridement of necrotic bone left maxilla and bleeding controlled surrounding soft tissue and patient did require 2 units of packed RBC. Xgeva was discontinued on February 09, 2021 due to ONJ, while continue on 3 weekly Kadcyla and for weekly Faslodex History of left lower extremity DVT started on Eliquis on May 28, 2017 stopped on November 26, 2018. History of mild transaminitis AST 137 on January 31, 2021, being monitored in march 2012 , presented with clinical symptoms of umbilical hernia. Preoperative Ca-125 was 255 on 03/12/12. On 03/26/12 she underwent exploratory laparotomy and surgical debulking with total abdominal hysterectomy, bilateral oophorectomies with an block rectosigmoid resection and anastomosis, inguinal lymph node dissection. 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 3/20 lymph nodes were involved. Thus, pathological T3c N1 M1 (abdominal wall) FIGO stage IV. Left sided Port-A-Cath was placed. Pancreatic cyst seen on CT scan of chest abdomen pelvis in April 2019, she was referred to pancreaticobiliary surgeon, follow-up was recommended Skin rash across chest and left arm, was evaluated by dermatology on December 28, 2019 and impression was spider angiomas due to underlying metastatic disease or hyper estrogen state or medication Left knee stiffness improved with physical therapy. Slightly elevated bilirubin, being observed. Hypoxia, VQ scan done in March 2020 was normal study, was evaluated by Dr. Ty Trevizo on November 27, 2020 who advised her to use home oxygen to keep O2 saturation more than 89% his impression was patient may have ILD chest x-ray done on February 01, 2021 shows stable interstitial prominence within the periphery of both lungs suggestive of drug-related pneumonitis/fibrosis VQ scan done on January 26, 2021 shows no evidence of pulmonary embolism Patient status post maternal Covid vaccine done in September 1999 21-second dose was given on October 13, 2020 CVA as per patient and daughter patient had a fall on January 15, 2021 for which she was admitted to hospital and had CT scan of the brain which was consistent with stroke and she was started on baby aspirin and Lipitor with improvement to mental clarity. 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 The impression included #1 postsurgical changes as above. #2 stable sterilized osseous metastatic disease. #3 - for malignancy. #4 no significant change in findings since the prior PET/CT study of February 2021 Follow-up echocardiogram done on September showed ejection fraction 70 to 75% Plan: . Discussed with patient regarding her labs white blood count 5.8 hemoglobin 9.8 g hematocrit 31.6 platelets 181,000 CMP within normal limits except AST 42, alk phos 148 Clinically, patient doing well with no new signs symptom suggestive of disease progression, her lab work-up shows persistent but stable mild/moderate anemia, probably due to chemotherapy. We will proceed with next 3 weekly dose of Kadcyla/monthly dose of Faslodex today And then she will return to clinic in 3 weeks with CBC CMP and if reasonable, for Kadcyla. Signed By: China Benz M.D. <<Signature on File>>
== END 2021-10-29 08:20 | disposition home or self-care (01) ==
PROVIDERS: PCP Internal Medicine; Visit Provider Internal Medicine Hematology & Oncology
DX: Z51.11 Encounter for antineoplastic chemotherapy (principal); C56.1 Malignant neoplasm of right ovary; C77.4 Secondary and unspecified malignant neoplasm of inguinal and lower limb lymph nodes; C77.5 Secondary and unspecified malignant neoplasm of intrapelvic lymph nodes; C79.62 Secondary malignant neoplasm of left ovary; C79.2 Secondary malignant neoplasm of skin; C79.89 Secondary malignant neoplasm of other specified sites; Z86.73 Personal history of transient ischemic attack (TIA), and cerebral infarction without residual deficits; Z79.899 Other long term (current) drug therapy
CPT/HCPCS: 80053; 85025; 96402; 96413; 99215; J7050; J9354; J9395

== ENCOUNTER 2021-11-19 09:54 | Outpatient (CLI) | payer MEDICARE, OTHER, SELFPAY ==
[2021-11-19 10:53] LABS: Basophils # 0.2 10^3/uL (0.0-0.1); Basophils % 2.7 %; Eosinophils # 0.5 10^3/uL (0.0-0.8); Eosinophils % 7.3 %; Hematocrit 34.9 % (37.0-47.0); Hemoglobin 10.1 g/dL (11.5-15.3); Lymphocytes # 2.5 10^3/uL (0.8-4.8); Lymphocytes % 35.2 %; Mean Corpuscular HGB Conc 28.9 g/dL (30.0-36.0); Mean Corpuscular Hemoglobin 26.8 pg (28.0-34.0); Mean Corpuscular Volume 92.6 fl (81-99); Mean Platelet Volume 10.7 fL (7.4-10.4); Monocytes # 0.6 10^3/uL (0.2-0.9); Monocytes % 8.5 %; Neutrophils # 3.27 10^3/uL (1.8-7.7); Nucleated Red Blood Cells % 0 %; Platelet Count 216 10^3/cmm (130-400); Red Blood Count 3.77 10^6/uL (4.1-5.3); Red Cell Distribution Width 20.3 % (12.1-15.1); White Blood Count 7.1 10^3/uL (4.0-10.0)
[2021-11-19 11:11] LABS: Alanine Aminotransferase 25 U/L (0-33); Albumin Level 3.4 g/dL (3.5-5.2); Alkaline Phosphatase 134 IU/L (35-105); Blood Urea Nitrogen 17 mg/dL (8-23); Calcium 8.8 mg/dL (8.5-10.5); Carbon Dioxide 25 mmol/L (22-29); Chloride 105 mmol/L (98-107); Globulin 3.2 g/dL (1.3-4.6); Glomerular Filtration Rate 99.7 mL/min (90-130); Glucose 124 mg/dL (65-115); Osmolality Calculated 295 mOsm/kg (285-295); Sodium 141 mmol/L (136-145); Total Bilirubin 1.1 mg/dL (0.15-1.2); Total Protein 6.6 g/dL (6.6-8.7)
[2021-11-19 11:12] LABS: Aspartate Amino Transferase 37 U/L (0-32)
[2021-11-19] MEDS: sodium chloride 0.9% 250 ML 75 ML IV (12:57)
--- NOTE | 2021-11-22 09:00 | ONC FU_ITS ---
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 History of Present Illness: This is a 65 year old woman who presented with clinical symptoms of umbilical hernia. Preoperative Ca-125 was 255 on 03/12/12. On 03/26/12 she underwent exploratory laparotomy and surgical debulking with total abdominal hysterectomy, bilateral oophorectomies with an block rectosigmoid resection and anastomosis, inguinal lymph node dissection. 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 3/20 lymph nodes were involved. Thus, pathological T3c N1 M1 (abdominal wall) FIGO stage IV. Left sided Port-A-Cath was placed. She was first seen on 04/15/12. Her baseline CT of chest abdomen and pelvis on 04/28/12 showed postoperative changes with seromas, but no evidence of recurrent disease, adenopathy or metastatic lesion. Ca-125 decreased to 74.9. Palliative chemotherapy with Carboplatin AUC of 6 and Paclitaxel 175 mg/m2 for six cycles every 3 weeks was recommenced. The chemotherapy was initiated on 04/28/12, complicated with grade 3 neutropenia without infections requiring further growth factor support. Her restaging CT of the chest abdomen and pelvis on 07/09/12, after 4 cycles of treatment, showed decreased postsurgical fluid collections and no evidence of disease progression. Cycle 6 was completed on 08/11/12. CEA 13.3. After that, patient moved to [place], where, in 2014 she went to [facility] with abnormal left breast mammogram, biopsy confirmed, subsequently underwent neoadjuvant chemotherapy with Taxotere/Herceptin/Perjeta for ER positive KY negative HER-2/eric positive disease followed by bilateral mastectomy which confirmed 8 out of 19 positive lymph node, e.g. yT2, yN2A, ER 94% positive [place] 0% HER-2/eric 3+ by FISH stage III followed by Arimidex, and in early 2015 patient developed lesion on the left breast skin, excisional biopsy done on November 23, 2015 showed dermal cutaneous nodule of recurrence IDC of breast, grade 3, main tumor nodule measured 1.5 cm size and does not directly involve the margin. At least one satellite nodule of tumor measuring 0.2 cm in size with extensive lymphatic invasion by tumor including lymphatic channel adjacent to the margin concerning for skin/chest wall recurrence at the left reconstruction site. And brain mets CT PET scan done in January 2017 showed right glenohumeral joint lesion about 2.5 cm, MRI of right shoulder done in March 2017 showed 3.6 x 2.5 x 3.4 cm bone marrow lesion within the medial right humeral head consistent with sclerotic metastatic disease CT-guided biopsy was done which confirmed metastatic carcinoma consistent with breast primary ER positive KY negative HER-2/eric positive patient completed whole brain radiation therapy on on March 28, 2017 follow-up CT brain done in February 2018 showed no brain mets. Patient also had left excisional breast biopsy done in January 2017 showed high-grade IDC with dermal lymphatic invasion ER positive KY negative HER-2/eric positive, at that time she was placed on lapatinib 1250 mg p.o. daily which is used as systemic therapy to target HER-2/eric positive metastatic breast cancer, Faslodex was started on March 25, 2017, Herceptin started on March 20, 2017, Xgeva was started on June 17, 2017, on April 07, 2018 Herceptin and Tykerb was stopped and on April 28, 2018 patient was started on Kadcyla patient was referred to radiation oncology regarding radiation therapy to the right humerus but at that time he was decided to hold off radiation. Follow-up CT PET scan done on July 05 showed response to the treatment follow-up CT scan and bone scan done in November 2018 showed stable disease and follow-up CT scan of brain done on January 19, 2019 showed no brain mets but mild small vessel ischemic changes for which she was referred to neurology. Follow-up CT PET scan done in April 2019 shows stable disease but nonspecific tiny focus of FDG accumulation right third rib for which she was referred to pulmonology to address lung changes seen on CT scan on June 18, 2019 patient had a bone scan done which shows stable disease and her echocardiogram done on June 08, 2019 shows ejection fraction 65 to 70% and her follow-up CT PET scan done in November 2019 shows stable disease then repeat follow-up CT PET scan done on March 21, 2020 shows stable disease On April 06, 2020 patient had TTE which showed ejection fraction 74% Follow-up CT PET scan done in September 2020 shows status post bilateral mastectomy with no focal area of increased activity in the chest abdomen or pelvis to suggest metastatic disease. Stable minimally active fibrotic changes at the lung bases posteriorly most consistent with inflammatory process. New large area of intense activity in the left maxilla which could represent dental process. Stable nonmetabolically active sclerotic lesion at L2 and in the large humeral head. On January 31, 2022 February 03, 2020 patient underwent debridement of necrotic bone left maxilla and bleeding controlled surrounding soft tissue with Dr. Marlo Purvis. Oral surgery. Postop finding were necrotic bone with sharp margins adjacent bleeding granulation tissue. Patient received 2 units of packed RBC. On February 09, 2021 Xgeva was discontinued due to ONJ. While continue with Kadcyla every 3 weeks and Faslodex every 4 weeks History of left lower extremity DVT patient was started on Eliquis on May 28, 2017 and Eliquis was stopped on November 26, 2018. History of skin rash across chest and on left arm seen by dermatology on December 28, 2019 and impression was spider angiomas may be due to underlying metastatic disease or hyper estrogen state versus liver disease from metastatic disease. History of left knee stiffness improved with physical therapy.,'s history of slightly elevated bilirubin around one-point being observed. History of hypoxia, VQ scan done on March 13, 2020 was normal study no history of PE., Stroke per patient and daughter patient had a fall on January 15, 2021 which prompted hospital stay and CT scan of head apparently revealed evidence of stroke she was started on baby aspirin and Lipitor with improvement to mental clarity On January 26, 2021 VQ scan lung shows no evidence of pulmonary embolism Patient has moved to [place] and now here to establish care. Denies any specific complaints, no fever chills, no nausea or vomiting, no diarrhea or constipation, only mild lower extremity edema, as per patient she traveled via car from [place] to [place] recently may have caused this edema. Denies any lower extremity pain denies any new bony pain denies any headaches blurred vision or double vision denies any shortness of breath or chest pain or palpitation. 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 Follow-up echocardiogram done on September 18, 2021 shows ejection fraction 70 to 75%. Patient presents today for follow-up accompanied by her daughter. She states that she is feeling well. Her appetite is fair. She denies fever, chills, night sweats. No sinus or sore throat. No shortness of breath, cough, chest pain. No GI or problems. She does have bilateral lower extremity weakness and is unable to ambulate by herself. She requires 2 people to assist her to transfer from wheelchair to chair. Review Of Symptoms: See above. Past Medical History: Left lower extremity dvt Stroke in 2020 History of ovarian cancer in 2011 History of melanoma, left cheek in 1980 Past Surgical History: Appendectomy Hernia repair Inguinal lymph node dissection Covid vaccine #2 in 2020 Covid vaccine #1 in 2020 Mastectomy in 2016 - bilateral Hysterectomy/bilateral salpingectomy-oophorectomy in 2011 Allergies: Iodinated Contrast Media Medications: Amoxicillin-Pot Clavulanate 1 Tablet (of 875-125 mg) Oral t.i.d. Aspirin 81 1 Tablet (of 81 mg) Tablet, chewable Oral daily Atorvastatin Calcium 1 (80 mg) Tablet Oral daily Calcium Tablet Oral Clopidogrel Bisulfate 1 (75 mg) Tablet Oral daily Magnesium 1 Tablet (of 250 mg) Oral daily MiraLax Powder Oral daily PRN Pantoprazole Sodium (40 mg) Tablet, enteric coated Oral daily Family History: Ms. Ríos's father is : cancer history consists of Lung cancer at age 87 (cause of ). FATHER AT AGE 87 FROM LUNG CA. Social History: Ms. Ríos is . Ms. Ríos has never smoked. She has no history of drinking. Physical Examination: Performed on Nov 19, 2021 11:21: Height - 9.00 in, Temperature - 97.7 F (LOW), Pulse - 78 /min, Respiration - 18 /min, BP - 113/71 mm(hg), O2 Sat - 93 % (LOW), Pain - 0, and Fatigue - 3. Performance Status: 3 - Capable of only limited self-care, confined to bed or chair more than 50% of waking hours. (ECOG) Constitutional Alert, cooperative, oriented. Mood and affect appropriate. Appears close to chronological age. Well nourished. Well developed. Respiratory Lungs are clear to auscultation without rhonchi or wheezing. Cardiovascular Regular rate and rhythm of heart without murmurs, gallops or rubs. Abdomen Non-tender, non-distended, no masses, ascites or hepatosplenomegaly. Good bowel sounds. No guarding or rebound tenderness. Extremities No edema Musculoskeletal Generalized weakness requiring assistance to stand. Psychiatric Alert and oriented times three. Coherent speech. Verbalizes understanding of our discussions today. Laboratory: Test performed on Nov 19, 2021 10:45 Sodium 141 mmol/L Potassium 4.0 mmol/L Chloride 105 mmol/L CO2 25 mmol/L Anion Gap 15.0 BUN 17 mg/dL Creatinine 0.6 mg/dL Cr Clearance (Est) 100.0700 mL/min eGFR 99.7 mL/min Glucose 124 mg/dL Osmolality - Calculated 295 mOsm/kg Calcium 8.8 mg/dL Protein, Total 6.6 g/dL Albumin 3.4 g/dL Globulin 3.2 g/dL Bilirubin, Total 1.1 mg/dL ALT (SGPT) 25 U/L AST (SGOT) 37 U/L Alkaline Phosphatase 134 IU/L WBC 7.1 10 3/uL RBC 3.77 10 6/uL HGB 10.1 g/dL HCT 34.9 % MCV 92.6 fl MCH 26.8 pg MCHC 28.9 g/dL RDW 20.3 % Platelet Count 216 10 3/cmm MPV 10.7 fL Neutrophils 3.27 10 3/uL Lymphocytes 2.5 10 3/uL Monocytes 0.6 10 3/uL Eosinophils 0.5 10 3/uL Basophils 0.2 10 3/uL Neutrophil % 46.0 % Lymphocyte % 35.2 % Monocyte % 8.5 % Eosinophil % 7.3 % Basophils % 2.7 % NRBC % 0 % Test performed on Jul 16, 2021 10:39 NRBC 0 /100 WBC Test performed on Jul 02, 2021 15:52 Manual Lymphocytes 45.0 % Manual Monocytes 11.3 % Manual Eosinophils 8.0 % Manual Basophils 1.3 % Impression: Metastatic invasive ductal carcinoma involving brain status post radiation therapy and multiple bone lesions including biopsy-proven right humeral head in March 2017, at that time she was referred to radiation and patient received whole brain radiation therapy and completed on March 28, 2017 but no radiation was considered to right humerus. Earlier patient was diagnosed with left breast cancer in 2014, at that time she underwent neoadjuvant chemotherapy with Taxotere/Herceptin/Perjeta x6 followed by bilateral mastectomy which showed yT2 ,y N2A, MX stage III followed by Arimidex and then in January 2017 she underwent left breast excisional biopsy which showed high-grade IDC with dermal lymphatic invasion ER positive KY negative HER-2/eric positive, at that time she was placed on lapatinib 1250 mg p.o. daily, Faslodex was started on March 25, 2017 and Herceptin was added on March 20, 2017 and Xgeva was started on June 17, 2017, in April 2018 Herceptin and Tykerb was stopped and on April 28, 2018 she was started on Kadcyla every 3 weeks and follow-up scans done in 2017 and then in and in 2019 showed stable disease and the last PET scan done on September 19, 2020 showed status post bilateral mastectomy with no focal area of increased activity in the chest, abdomen or pelvis to suggest metastatic disease. Stable minimal reactive fibrotic changes at the lung bases consistent with inflammatory process. New large area of intense activity in the left maxilla could represent dental process. Stable nonmetabolically active sclerotic lesion at L2 and in the right humeral head. On January 31, 2021 patient underwent debridement of necrotic bone left maxilla and bleeding controlled surrounding soft tissue and patient did require 2 units of packed RBC. Xgeva was discontinued on February 09, 2021 due to ONJ, while continue on 3 weekly Kadcyla and for weekly Faslodex History of left lower extremity DVT started on Eliquis on May 28, 2017 stopped on November 26, 2018. History of mild transaminitis AST 137 on January 31, 2021, being monitored Pancreatic cyst seen on CT scan of chest abdomen pelvis in April 2019, she was referred to pancreaticobiliary surgeon, follow-up was recommended Skin rash across chest and left arm, was evaluated by dermatology on December 28, 2019 and impression was spider angiomas due to underlying metastatic disease or hyper estrogen state or medication Left knee stiffness improved with physical therapy. Slightly elevated bilirubin, being observed. Hypoxia, VQ scan done in March 2020 was normal study, was evaluated by Dr. Ty Trevizo on November 27, 2020 who advised her to use home oxygen to keep O2 saturation more than 89% his impression was patient may have ILD chest x-ray done on February 01, 2021 shows stable interstitial prominence within the periphery of both lungs suggestive of drug-related pneumonitis/fibrosis VQ scan done on January 26, 2021 shows no evidence of pulmonary embolism Patient status post maternal Covid vaccine done in September 1999 21-second dose was given on October 13, 2020 CVA as per patient and daughter patient had a fall on January 15, 2021 for which she was admitted to hospital and had CT scan of the brain which was consistent with stroke and she was started on baby aspirin and Lipitor with improvement to mental clarity. 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 likely related to Xgeva or radiation necrosis and due to ongoing bone exposure over left maxilla, now maxillofacial surgical evaluation at [facility] in [place] is under consideration per infectious disease, Her Kadcyla infusion was held during IV ampicillin course and resumed on June 20, 2021 after patient completed 4 weeks course of IV ampicillin PET scan was performed on 08/18/2021 and compared to the PET scan study of February 2021. The impression included #1 postsurgical changes as above. #2 stable sterilized osseous metastatic disease. #3 - for malignancy. #4 no significant change in findings since the prior PET/CT study of February 2021 Follow-up echocardiogram done on September showed ejection fraction 70 to 75% Plan: Labs were reviewed with patient. Her WBC is 7.1, hemoglobin 10.1, hematocrit 34.9 platelet count 16,000. Her CMP is stable. Patient is tolerating treatment with Kadcyla and Faslodex. She will receive cycle 12 of her concealer today. She will return to the clinic in 3 weeks with CBC and CMP. Signed By: Jumana Vázquez N.P. <<Signature on File>>
== END 2021-11-19 09:55 | disposition home or self-care (01) ==
LOC: ONCMED 09:58
PROVIDERS: PCP Internal Medicine; Visit Provider Nurse Practitioner Family
DX: Z51.11 Encounter for antineoplastic chemotherapy (principal); C50.812 Malignant neoplasm of overlapping sites of left female breast; Z17.0 Estrogen receptor positive status [ER+]; C79.31 Secondary malignant neoplasm of brain; C79.51 Secondary malignant neoplasm of bone; R74.01 Elevation of levels of liver transaminase levels; K86.2 Cyst of pancreas; L27.1 Localized skin eruption due to drugs and medicaments taken internally; T45.1X5A Adverse effect of antineoplastic and immunosuppressive drugs, initial encounter; M25.662 Stiffness of left knee, not elsewhere classified; E80.7 Disorder of bilirubin metabolism, unspecified; R09.02 Hypoxemia; M27.2 Inflammatory conditions of jaws; Z79.01 Long term (current) use of anticoagulants; Z79.899 Other long term (current) drug therapy; Z86.718 Personal history of other venous thrombosis and embolism; Z86.16 Personal history of COVID-19; Z86.73 Personal history of transient ischemic attack (TIA), and cerebral infarction without residual deficits
CPT/HCPCS: 80053; 85025; 96413; 99215; J7050; J9354

== ENCOUNTER 2021-11-28 10:27 | Outpatient (CLI) | payer MEDICARE, OTHER, SELFPAY ==
[2021-11-28] MEDS: fulvestrant 250 mg/5 mL Syringe 500 MG IM (11:17)
== END 2021-11-28 10:28 | disposition home or self-care (01) ==
PROVIDERS: PCP Internal Medicine; Visit Provider Internal Medicine Hematology & Oncology
DX: Z85.3 Personal history of malignant neoplasm of breast (principal); C79.51 Secondary malignant neoplasm of bone; C79.31 Secondary malignant neoplasm of brain; Z79.818 Long term (current) use of other agents affecting estrogen receptors and estrogen levels; Z90.13 Acquired absence of bilateral breasts and nipples
CPT/HCPCS: 96402; J9395

== ENCOUNTER 2021-12-15 14:36 | Outpatient (CLI) | payer MEDICARE, OTHER, SELFPAY ==
[2021-12-15 16:15] LABS: Anion Gap 15.8 (5-19); Blood Urea Nitrogen 19 mg/dL (8-23); Calcium 9.2 mg/dL (8.5-10.5); Carbon Dioxide 26 mmol/L (22-29); Chloride 100 mmol/L (98-107); Glomerular Filtration Rate 99.4 mL/min (90-130); Glucose 120 mg/dL (65-115); Osmolality Calculated 289 mOsm/kg (285-295); Potassium 3.8 mmol/L (3.5-5.1); Sodium 138 mmol/L (136-145)
[2021-12-15 16:40] LABS: Magnesium 1.7 mg/dL (1.7-2.3)
== END 2021-12-15 14:37 | disposition home or self-care (01) ==
PROVIDERS: PCP Internal Medicine; Visit Provider Internal Medicine
DX: E87.6 Hypokalemia (principal); C79.51 Secondary malignant neoplasm of bone; C79.31 Secondary malignant neoplasm of brain
CPT/HCPCS: 80048; 83735

== ENCOUNTER 2021-12-26 14:00 | Oncology outpatient (recurring) (ONCR) | payer MEDICARE, OTHER, SELFPAY ==
[2021-12-13 09:09] VITALS: BMI 25.0
[2021-12-13 09:49] LABS: Basophils # 0.2 10^3/uL (0.0-0.1); Eosinophils # 0.7 10^3/uL (0.0-0.8); Eosinophils % 9.4 %; Hematocrit 33.3 % (37.0-47.0); Hemoglobin 10.5 g/dL (11.5-15.3); Lymphocytes # 2.4 10^3/uL (0.8-4.8); Lymphocytes % 32.8 %; Mean Corpuscular HGB Conc 31.5 g/dL (30.0-36.0); Mean Corpuscular Hemoglobin 27.9 pg (28.0-34.0); Mean Corpuscular Volume 88.6 fl (81-99); Mean Platelet Volume 10.1 fL (7.4-10.4); Monocytes % 13.1 %; Neutrophils # 3.11 10^3/uL (1.8-7.7); Neutrophils % 42.4 %; Nucleated Red Blood Cells % 0 %; Platelet Count 200 10^3/cmm (130-400); Red Blood Count 3.76 10^6/uL (4.1-5.3); Red Cell Distribution Width 19.8 % (12.1-15.1); White Blood Count 7.3 10^3/uL (4.0-10.0)
[2021-12-13 10:07] LABS: Alanine Aminotransferase 24 U/L (0-33); Albumin Level 2.4 g/dL (3.5-5.2); Alkaline Phosphatase 91 IU/L (35-105); Anion Gap 12.5 (5-19); Aspartate Amino Transferase 51 U/L (0-32); Blood Urea Nitrogen 18 mg/dL (8-23); Calcium 6.8 mg/dL (8.5-10.5); Carbon Dioxide 18 mmol/L (22-29); Chloride 116 mmol/L (98-107); Globulin 2.9 g/dL (1.3-4.6); Glomerular Filtration Rate 158.7 mL/min (90-130); Glucose 46 mg/dL (65-115); Osmolality Calculated 297 mOsm/kg (285-295); Sodium 144 mmol/L (136-145); Total Bilirubin 0.6 mg/dL (0.15-1.2); Total Protein 5.3 g/dL (6.6-8.7)
[2021-12-13 10:15] LABS: Creatinine Clr Calc Pharmacy 70.1144; Potassium 2.5 mmol/L (3.5-5.1)
[2021-12-13] MEDS: sodium chloride 0.9% 250 ML 75 ML IV (12:08)
[2021-12-13] MEDS: sodium chlor 0.9% + KCl 20 mEq 20 MEQ/1,000 ML BAG 500 MEQ IV (13:10)
[2021-12-13 13:55] LABS: Magnesium 1.1 mg/dL (1.7-2.3)
[2021-12-13 15:37] VITALS: BP 128/71; PULSE 74; RESP 20; TEMP 36.2; O2SAT 94
[2021-12-14 09:31] VITALS: BP 136/73; PULSE 78; RESP 20; O2SAT 92
[2021-12-14 10:15] VITALS: BP 124/67; PULSE 76; RESP 16; TEMP 36.7; O2SAT 94
[2021-12-26] MEDS: fulvestrant 250 mg/5 mL Syringe 500 MG IM (15:23)
[2021-12-26 15:30] VITALS: BP 126/75; PULSE 80; RESP 18; TEMP 36.3; O2SAT 92
== END 2022-01-01 23:59 | disposition home or self-care (01) ==
PROVIDERS: Nurse Practitioner Family; PCP Internal Medicine; Visit Provider Internal Medicine Hematology & Oncology
DX: C50.812 Malignant neoplasm of overlapping sites of left female breast (principal); Z17.0 Estrogen receptor positive status [ER+]; C79.31 Secondary malignant neoplasm of brain; C79.51 Secondary malignant neoplasm of bone; Z79.818 Long term (current) use of other agents affecting estrogen receptors and estrogen levels
CPT/HCPCS: 80053; 83735; 85025; 96365; 96366; 96367; 96402; 96413; 99215; 99999; J3475; J7050; J9354; J9395

== ENCOUNTER 2022-01-30 09:00 | Oncology outpatient (recurring) (ONCR) | payer MEDICARE, OTHER, SELFPAY ==
[2022-01-03 09:40] VITALS: BMI 24.7
[2022-01-03 10:03] LABS: Basophils # 0.1 10^3/uL (0.0-0.1); Basophils % 2.3 %; Eosinophils # 0.5 10^3/uL (0.0-0.8); Eosinophils % 9.4 %; Hematocrit 32.6 % (37.0-47.0); Hemoglobin 10.5 g/dL (11.5-15.3); Lymphocytes # 1.7 10^3/uL (0.8-4.8); Lymphocytes % 32.8 %; Mean Corpuscular HGB Conc 32.2 g/dL (30.0-36.0); Mean Corpuscular Hemoglobin 27.4 pg (28.0-34.0); Mean Corpuscular Volume 85.1 fl (81-99); Mean Platelet Volume 10.7 fL (7.4-10.4); Monocytes # 0.4 10^3/uL (0.2-0.9); Monocytes % 7.7 %; Neutrophils # 2.48 10^3/uL (1.8-7.7); Neutrophils % 47.8 %; Nucleated Red Blood Cells % 0 %; Platelet Count 185 10^3/cmm (130-400); Red Blood Count 3.83 10^6/uL (4.1-5.3); Red Cell Distribution Width 19.6 % (12.1-15.1); White Blood Count 5.2 10^3/uL (4.0-10.0)
[2022-01-03 10:11] LABS: Alanine Aminotransferase 29 U/L (0-33); Albumin Level 3.3 g/dL (3.5-5.2); Alkaline Phosphatase 147 IU/L (35-105); Anion Gap 15.5 (5-19); Aspartate Amino Transferase 35 U/L (0-32); Blood Urea Nitrogen 19 mg/dL (8-23); Calcium 9.3 mg/dL (8.5-10.5); Carbon Dioxide 25 mmol/L (22-29); Chloride 104 mmol/L (98-107); Glomerular Filtration Rate 83.2 mL/min (90-130); Glucose 188 mg/dL (65-115); Osmolality Calculated 299 mOsm/kg (285-295); Potassium 3.5 mmol/L (3.5-5.1); Sodium 141 mmol/L (136-145); Total Bilirubin 0.9 mg/dL (0.15-1.2); Total Protein 7.3 g/dL (6.6-8.7)
[2022-01-03 10:42] LABS: CA 15-3 16.6 U/mL (0-25)
[2022-01-03] MEDS: sodium chloride 0.9% 250 ML 75 ML IV (12:26)
[2022-01-03 13:40] VITALS: BP 115/61; PULSE 71; RESP 18; TEMP 36.7; O2SAT 96
[2022-01-24 09:30] VITALS: BMI 24.7
[2022-01-24 10:23] LABS: Basophils # 0.2 10^3/uL (0.0-0.1); Basophils % 2.7 %; Eosinophils # 0.4 10^3/uL (0.0-0.8); Eosinophils % 6.1 %; Hematocrit 32.2 % (37.0-47.0); Hemoglobin 10.3 g/dL (11.5-15.3); Lymphocytes # 2.2 10^3/uL (0.8-4.8); Lymphocytes % 36.4 %; Mean Corpuscular Volume 84.5 fl (81-99); Mean Platelet Volume 10.1 fL (7.4-10.4); Monocytes # 0.5 10^3/uL (0.2-0.9); Monocytes % 8.6 %; Neutrophils # 2.74 10^3/uL (1.8-7.7); Nucleated Red Blood Cells % 0 %; Platelet Count 210 10^3/cmm (130-400); Red Blood Count 3.81 10^6/uL (4.1-5.3); Red Cell Distribution Width 20.6 % (12.1-15.1); White Blood Count 5.9 10^3/uL (4.0-10.0)
[2022-01-24 10:49] LABS: Alanine Aminotransferase 35 U/L (0-33); Albumin Level 3.3 g/dL (3.5-5.2); Alkaline Phosphatase 143 IU/L (35-105); Anion Gap 14.8 (5-19); Aspartate Amino Transferase 41 U/L (0-32); Blood Urea Nitrogen 27 mg/dL (8-23); Calcium 9.1 mg/dL (8.5-10.5); Carbon Dioxide 24 mmol/L (22-29); Chloride 105 mmol/L (98-107); Globulin 3.6 g/dL (1.3-4.6); Glomerular Filtration Rate 99.4 mL/min (90-130); Glucose 139 mg/dL (65-115); Osmolality Calculated 297 mOsm/kg (285-295); Potassium 3.8 mmol/L (3.5-5.1); Sodium 140 mmol/L (136-145); Total Protein 6.9 g/dL (6.6-8.7)
[2022-01-24 12:10] LABS: CA 15-3 14.7 U/mL (0-25)
[2022-01-24] MEDS: sodium chloride 0.9% 250 ML 75 ML IV (12:12)
[2022-01-24 13:31] VITALS: BP 114/72; PULSE 72; RESP 18; TEMP 36.4; O2SAT 97
[2022-01-30] MEDS: fulvestrant 250 mg/5 mL Syringe 500 MG IM (09:46)
[2022-01-30 09:53] VITALS: BP 123/63; PULSE 18; RESP 71; TEMP 36.4; O2SAT 92
== END 2022-01-31 23:59 | disposition home or self-care (01) ==
PROVIDERS: PCP Internal Medicine; Visit Provider Internal Medicine Hematology & Oncology
DX: Z51.11 Encounter for antineoplastic chemotherapy (principal); C79.31 Secondary malignant neoplasm of brain
CPT/HCPCS: 80053; 85025; 86300; 96402; 96413; 99214; 99215; J7050; J9354; J9395

== ENCOUNTER 2022-02-11 12:49 | Oncology outpatient (recurring) (ONCR) | payer MEDICARE, OTHER, SELFPAY ==
[2022-02-11 13:52] LABS: Basophils # 0.2 10^3/uL (0.0-0.1); Basophils % 2.4 %; Eosinophils # 0.4 10^3/uL (0.0-0.8); Hematocrit 30.5 % (37.0-47.0); Lymphocytes # 2.4 10^3/uL (0.8-4.8); Lymphocytes % 33.4 %; Mean Corpuscular HGB Conc 32.8 g/dL (30.0-36.0); Mean Corpuscular Volume 82.2 fl (81-99); Mean Platelet Volume 10.5 fL (7.4-10.4); Monocytes # 1.2 10^3/uL (0.2-0.9); Monocytes % 15.9 %; Neutrophils # 3.11 10^3/uL (1.8-7.7); Nucleated Red Blood Cells % 0 %; Platelet Count 172 10^3/cmm (130-400); Red Blood Count 3.71 10^6/uL (4.1-5.3); Red Cell Distribution Width 20.6 % (12.1-15.1); White Blood Count 7.2 10^3/uL (4.0-10.0)
[2022-02-11 14:35] LABS: Alanine Aminotransferase 44 U/L (0-33); Alkaline Phosphatase 155 IU/L (35-105); Anion Gap 14.3 (5-19); Aspartate Amino Transferase 53 U/L (0-32); Blood Urea Nitrogen 21 mg/dL (8-23); Calcium 9.5 mg/dL (8.5-10.5); Carbon Dioxide 24 mmol/L (22-29); Chloride 105 mmol/L (98-107); Glomerular Filtration Rate 99.4 mL/min (90-130); Glucose 67 mg/dL (65-115); Osmolality Calculated 291 mOsm/kg (285-295); Potassium 3.3 mmol/L (3.5-5.1); Sodium 140 mmol/L (136-145)
[2022-02-11 16:00] VITALS: BP 114/69; PULSE 71; RESP 18; TEMP 35.9; O2SAT 97
== END 2022-02-11 23:59 | disposition home or self-care (01) ==
PROVIDERS: PCP Internal Medicine; Visit Provider Internal Medicine Hematology & Oncology
DX: Z51.11 Encounter for antineoplastic chemotherapy (principal); C50.812 Malignant neoplasm of overlapping sites of left female breast; Z17.0 Estrogen receptor positive status [ER+]; Z90.13 Acquired absence of bilateral breasts and nipples; C79.31 Secondary malignant neoplasm of brain; C79.51 Secondary malignant neoplasm of bone; R26.9 Unspecified abnormalities of gait and mobility; M27.2 Inflammatory conditions of jaws; F03.90 Unspecified dementia, unspecified severity, without behavioral disturbance, psychotic disturbance, mood disturbance, and anxiety; D64.9 Anemia, unspecified; E87.6 Hypokalemia; Z86.73 Personal history of transient ischemic attack (TIA), and cerebral infarction without residual deficits; Z86.718 Personal history of other venous thrombosis and embolism; Z79.899 Other long term (current) drug therapy
CPT/HCPCS: 80053; 85025; 86300; 96413; 99214; 99215; J7050; J9354

== ENCOUNTER 2022-02-18 09:38 | Inpatient (IN) | payer MEDICARE, OTHER, SELFPAY ==
[2022-02-18] VITALS (10 sets, daily range): BP systolic 122–144; BP diastolic 46–113; PULSE 62–80; RESP 16–20; TEMP 36.7–36.9; O2SAT 91–94
--- NOTE | 2022-02-18 10:16 | CT_ITS ---
WS: [id number] CT HEAD TECHNIQUE: Noncontrast CT of the head obtained from the skullbase to the vertex. CLINICAL INFORMATION: AMS COMPARISON: May 01, 2021 DLP: 1126.[address] scans at [facility] use at least one of these dose optimization techniques: automated e xposure control; mA and/or kV adjustment per patient size (includes targeted exams where dose is matc hed to clinical indication); or iterative reconstruction. FINDINGS: No evidence of intracranial hemorrhage or mass effect. Ventricular system and basal cisterns are pereira nt. Moderate small vessel changes with moderate parenchymal volume loss. No extra-axial fluid collect ions. No evidence of mass or mass effect. Stable low-attenuation changes RIGHT superior cerebellum un changed from previous likely due to prior ischemia. Polypoid mucosal thickening LEFT maxillary sinus. Mucosal thickening LEFT mastoid tip. RIGHT mastoid air cells well aerated. CT/CT head wo con* [id number] IMPRESSION: 1. No evidence of intracranial hemorrhage or mass effect. 2. Moderate small vessel changes. Moderate parenchymal volume loss. 3. No acute intracranial findings.
--- NOTE | 2022-02-18 10:17 | ECG_ITS ---
[facility] Test Date: 2022-02-18 Pat Name: Yenifer Ríos Department: Room: Gender: Female Manager Ct: : 1955 Requested By: Cristo Dejesus Order Number: [id number] Raciel MD: Prasanna Reyes M.D. Measurements Intervals [place] Rate: 80 P: 164 WA: 165 QRS: 217 QRSD: 113 T: 76 QT: 377 QTc: 435 Interpretive Statements SINUS RHYTHM WITH OCCASIONAL SUPRAVENTRICULAR PREMATURE COMPLEXES ARM LEADS REVERSED [INVERTED P AND QRS IN I] Compared to ECG 02/25/2021 11:41:33 Sinus arrhythmia no longer present Electronically Signed On 02-18-2022 17:53:24 CDT by Prasanna Reyes M.D. [email or web address] hospitalAmaya Gamingbrecksville [facility].[employer]/store/[id number]
[2022-02-18 10:35] LABS: Basophils # 0.1 10^3/uL (0.0-0.1); Basophils % 1.2 %; Eosinophils # 0.1 10^3/uL (0.0-0.8); Eosinophils % 1.9 %; Hematocrit 30.9 % (37.0-47.0); Hemoglobin 9.7 g/dL (11.5-15.3); Lymphocytes # 1.3 10^3/uL (0.8-4.8); Lymphocytes % 17.2 %; Mean Corpuscular HGB Conc 31.4 g/dL (30.0-36.0); Mean Corpuscular Hemoglobin 26.9 pg (28.0-34.0); Mean Corpuscular Volume 85.6 fl (81-99); Mean Platelet Volume 10.2 fL (7.4-10.4); Monocytes # 1.3 10^3/uL (0.2-0.9); Monocytes % 17.9 %; Neutrophils # 4.44 10^3/uL (1.8-7.7); Neutrophils % 61.4 %; Nucleated Red Blood Cells % 0 %; Platelet Count 148 10^3/cmm (130-400); Red Blood Count 3.61 10^6/uL (4.1-5.3); Red Cell Distribution Width 21.2 % (12.1-15.1); White Blood Count 7.3 10^3/uL (4.0-10.0)
--- NOTE | 2022-02-18 10:44 | CT_ITS ---
WS: [id number] CTA HEAD AND NECK TECHNIQUE: Contrast enhanced CTA of the head and neck with coronal and sagittal reformatted images an d maximum intensity projection (MIP) images. NASCET criteria utilized. CLINICAL INFORMATION: CVA COMPARISON: None. DLP: 423.[address] scans at [facility] use at least one of these dose optimization techniques: automated e xposure control; mA and/or kV adjustment per patient size (includes targeted exams where dose is matc hed to clinical indication); or iterative reconstruction. FINDINGS: RIGHT: RIGHT common carotid artery is patent. Calcified atheromatous disease RIGHT proximal ICA with less than 50% stenosis. ICA is patent to the skull base. LEFT: LEFT common carotid artery is patent. Mild atheromatous disease LEFT carotid bulb. No significa nt LEFT ICA stenosis. LEFT ICA is patent to the skull base. INTRACRANIAL CTA: LEFT dominant vertebral artery. Both vertebral arteries are patent. Proximal basilar artery is patent . 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 Normal vascularity to the BIODIESEL PROCESSING TECHNICIAN territory bilaterally. Mild cavernous carotid calcification. ICAs are patent at the skull base. Normal variant hypoplastic L EFT A1. Normal vascularity to the LAKISHA and MCA territories bilaterally. No evidence of high-grade prox imal stenosis. Mucosal thickening LEFT maxillary sinus. Mucosal thickening LEFT mastoid tip. Normal p osterior nasopharynx. CT/CT angio headneck* [id number] IMPRESSION: 1. Mild less than 50% RIGHT ICA stenosis with calcified atheromatous disease. 2. No significant LEFT ICA stenosis. 3. LEFT dominant vertebral artery. Both vertebral arteries are patent. 4. No flow-limiting intracranial stenosis. 5. Normal variant persistent LEFT BIODIESEL PROCESSING TECHNICIAN.
--- NOTE | 2022-02-18 10:52 | ED_ITS ---
HPI - Altered Mental Status General: Chief Complaint: Altered Mental Status Stated Complaint: AMS Time Seen by Provider: 02/18/22 09:47 Source: patient [facility] ED PFSH: Medical History Breast cancer metastasized to bone Breast cancer metastasized to brain Hypokalemia Left leg DVT Ovarian cancer Stage IV Recurrent strokes Skin cancer Surgical History H/O abdominal hysterectomy Debulking surgery H/O umbilical hernia repair History of bilateral mastectomy x2 2014 History of colon surgery Rectosigmoid resection and anastomosis History of oral surgery S/P DARCIE-BSO Family History Other Cancer Hyperlipidemia Hypertension Psychiatric illness Denies family history of Diabetes CAD (coronary artery disease) Clotting disorder Dementia Chronic kidney disease (CKD) Suicide Anesthesia complication Bleeding disorder Lung disease Stroke Social History Smoking and tobacco status: never smoked Alcohol intake: never Marital status: History of recent travel: No Course Vital Signs: Vital signs: Vital Signs Temperature 98.5 F 02/18/22 09:50 Pulse Rate 80 02/18/22 09:50 Respiratory Rate 16 02/18/22 09:50 Blood Pressure 129/57 02/18/22 09:50 Pulse Oximetry 92 02/18/22 09:50 MDM - Altered Mental Status Lab Data : 02/18/22 10:15 02/18/22 10:15 Laboratory Results WBC 7.3 10^3/uL (4.0-10.0) 02/18/22 10:15 RBC 3.61 10^6/uL (4.1-5.3) L 02/18/22 10:15 Hgb 9.7 g/dL (11.5-15.3) L 02/18/22 10:15 Hct 30.9 % (37.0-47.0) L 02/18/22 10:15 MCV 85.6 fl (81-99) 02/18/22 10:15 MCH 26.9 pg (28.0-34.0) L 02/18/22 10:15 MCHC 31.4 g/dL (30.0-36.0) 02/18/22 10:15 RDW 21.2 % (12.1-15.1) H 02/18/22 10:15 Plt Count 148 10^3/cmm (130-400) 02/18/22 10:15 MPV 10.2 fL (7.4-10.4) 02/18/22 10:15 Neut % (Auto) 61.4 % 02/18/22 10:15 Lymph % (Auto) 17.2 % 02/18/22 10:15 [place] % (Auto) 17.9 % 02/18/22 10:15 Eos % (Auto) 1.9 % 02/18/22 10:15 Baso % (Auto) 1.2 % 02/18/22 10:15 Neut # (Auto) 4.44 10^3/uL (1.8-7.7) 02/18/22 10:15 Lymph # (Auto) 1.3 10^3/uL (0.8-4.8) 02/18/22 10:15 [place] # (Auto) 1.3 10^3/uL (0.2-0.9) H 02/18/22 10:15 Eos # (Auto) 0.1 10^3/uL (0.0-0.8) 02/18/22 10:15 Baso # (Auto) 0.1 10^3/uL (0.0-0.1) 02/18/22 10:15 Nucleated RBC % (auto) 0 % 02/18/22 10:15 Nucleated RBCs # 0.0 /100WBC 02/18/22 10:15 Discharge Plan Discharge Condition: Stable Prescriptions: No Action multivitamin Tablet 1 tab PO DAILY 0RF calcium carbonate [Calcium 600] 600 mg calcium (1,500 mg) tablet 900 mg PO DAILY 0RF magnesium 250 mg tablet 250 mg PO DAILY 0RF amoxicillin-pot clavulanate [Augmentin] 875-125 mg tablet 1 tab PO Q12H 30 Days Qty: 60 0RF potassium chloride 20 mEq tablet,ER particles/crystals 20 meq PO DAILY Qty: 60 0RF aspirin 81 mg Tablet,Delayed Release (Dr/Ec) 81 mg PO DAILY 30 Days Qty: 30 3RF atorvastatin 40 mg Tablet 80 mg PO DAILY 30 Days Qty: 30 3RF pantoprazole [Protonix] [address] for susp in packet 40 mg PO DAILY Qty: 30 1RF Referrals: Mauricio Christian MD [Primary Care Provider] - Coding Level of Care Code ED Press Feeder [employer] for Dejuan Kincaid
--- NOTE | 2022-02-18 10:52 | PC.PHAR ---
pt is from [facility]-joe agee nurse from [facility] states the pt hasnt had any medications today
[2022-02-18] MEDS: diphenhydrAMINE 50 mg/mL SDV 1mL IVP (11:07)
[2022-02-18 11:19] LABS: Lactic Sepsis W/Reflex 1.3 mmol/L (0.5-2.2)
[2022-02-18 11:23] LABS: Alanine Aminotransferase 59 U/L (0-33); Albumin Level 2.9 g/dL (3.5-5.2); Alkaline Phosphatase 184 IU/L (35-105); Anion Gap 13.5 (5-19); Aspartate Amino Transferase 99 U/L (0-32); Blood Urea Nitrogen 24 mg/dL (8-23); Calcium 8.8 mg/dL (8.5-10.5); Carbon Dioxide 25 mmol/L (22-29); Chloride 108 mmol/L (98-107); Globulin 3.9 g/dL (1.3-4.6); Glomerular Filtration Rate 83.2 mL/min (90-130); Glucose 75 mg/dL (65-115); Osmolality Calculated 299 mOsm/kg (285-295); Potassium 3.5 mmol/L (3.5-5.1); Sodium 143 mmol/L (136-145); Total Protein 6.8 g/dL (6.6-8.7)
[2022-02-18 11:24] LABS: Creatine Phosphokinase 1005 U/L (26-192)
[2022-02-18 11:26] LABS: Troponin(5th) Baseline 131 ng/L (0-10)
[2022-02-18] MEDS: iohexol 350 mg/mL 100 mL Btl IV (11:34)
[2022-02-18 12:06] LABS: CKMB 18.7 ng/mL (0-5.34)
--- NOTE | 2022-02-18 12:17 | ECG_ITS ---
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 Measurements Intervals [place] Rate: 69 P: 77 UT: 178 QRS: -5 QRSD: 125 T: 81 QT: 465 QTc: 500 Interpretive Statements SINUS RHYTHM MODERATE INTRAVENTRICULAR CONDUCTION DELAY [110+ ms QRS DURATION] PROLONGED QT INTERVAL Compared to ECG 02/18/2022 10:38:18 Intraventricular conduction delay now present Prolonged QT interval now present Electronically Signed On 02-18-2022 17:57:50 CDT by Prasanna Reyse M.D. [email or web address] county hospitaleTruckgalion community [email or web address].[email or web address]/store/[id number]
--- NOTE | 2022-02-18 12:28 | ED_ITS ---
HPI - Neuro Symptoms/Deficit General: Chief Complaint: Altered Mental Status Stated Complaint: AMS Time Seen by Provider: 02/18/22 09:47 Source: family Mode of arrival: EMS History of Present Illness: 66-year-old female presents to the emergency room via EMS with a chief complaint of altered mental status. That noticed some left -sided weakness left-sided facial droop this morning. Last known well per the family was 6 PM last night. She lives at [facility] she has previously had a stroke. She is not usually ambulatory. Patient has had cancers which are being followed by Dr. Benz including breast cancer with recurrences which is a bone and brain. She had strokes last year however she did not have significant deficit at least this further can tell from the notes. Daughter said she was her normal self yesterday till about 6 PM that was when she left. Do not have any report of the last known well from the senior care. Onset (ago): hour(s) Last Observed Normal: 18:00 Timing confirmed by: family member Location: left face, left arm and left leg Severity: moderate Quality: weak Relieving factors: none Exacerbating factors: none Context: found down Associated symptoms: Reports malaise; Deny chest pain, fevers/chills, nausea, short of breath or vomiting Review of Systems Const: Reports: malaise; Denies: fever(s), chills, body aches or fatigue Card: Denies: chest pain or palpitations Resp: Denies: dyspnea, productive cough or non-productive cough GI: Denies: abdominal pain, nausea, vomiting, diarrhea, constipation, hematochezia or melena : Denies: flank pain, difficulty voiding, dysuria, urinary frequency or urinary urgency Skin/Breast: Denies: rash or pruritus PFSH ED PFSH: Medical History Breast cancer metastasized to bone Breast cancer metastasized to brain Hypokalemia Left leg DVT Ovarian cancer Stage IV Recurrent strokes Skin cancer Surgical History H/O abdominal hysterectomy Debulking surgery H/O umbilical hernia repair History of bilateral mastectomy x2 2014 History of colon surgery Rectosigmoid resection and anastomosis History of oral surgery S/P DARCIE-BSO Family History Other Cancer Hyperlipidemia Hypertension Psychiatric illness Denies family history of Diabetes CAD (coronary artery disease) Clotting disorder Dementia Chronic kidney disease (CKD) Suicide Anesthesia complication Bleeding disorder Lung disease Stroke Social History Smoking and tobacco status: never smoked Alcohol intake: never Marital status: History of recent travel: No NIH stroke score NIHSS: Level Of Consciousness - 1a: 2 Level Of Consciousness Questions - 1b: Neither Correct Level Of Consciousness Commands - 1c: One Correct Best Gaze - 2: Normal Visual Milligan - 3: No Visual Loss Facial Palsy - 4: Partial Paralysis Motor Arm Right - 5: No Drift Motor Arm Left - 5: Effort Against [place] Motor Leg Right - 6: No Drift Motor Leg Left - 6: Drift Limb Ataxia - 7: Present In One Limb Sensory - 8: Mild To Moderate Loss Best Language - 9: Mild/Moderate Aphasia Dysarthia - 10: Mild/Moderate Dysarthia Extinction And Inattention - 11: 1 Score: Total Score: 15 Physical Exam Const: COMMON NORMALS: no acute distress HENMT: COMMON NORMALS: normocephalic, atraumatic and hearing grossly normal bilaterally HEAD & SCALP: normocephalic and atraumatic Neck/C-Spine: COMMON NORMALS: no JVD Resp: COMMON NORMALS: normal respiratory effort, No retractions, No use of accessory muscles and clear to auscultation bilaterally AUSCULTATION: clear to auscultation bilaterally Cardio: COMMON NORMALS: no JVD, regular rate, regular rhythm and No murmurs present (Cardio) RATE: regular rate RHYTHM: regular rhythm GI: COMMON NORMALS: Soft to palpation and No hepatosplenomegaly present AUSCULTATION: Yes normoactive bowel sounds PALPATION: Yes Soft to palpation, No Tenderness to palpation present (GI), No Guarding due to palpation present (GI) and Yes No hepatosplenomegaly present Extremity: COMMON NORMALS: normal to inspection, capillary refill normal and no calf tenderness Skin: COMMON NORMALS: no rashes or lesions noted GENERAL SKIN EXAM: no rashes or lesions noted Course Vital Signs: Vital signs: Vital Signs Temperature 98.5 F 02/18/22 09:50 Pulse Rate 73 02/18/22 11:03 Respiratory Rate 20 H 07/18/22 11:03 Blood Pressure 122/46 02/18/22 11:03 Pulse Oximetry 92 02/18/22 11:03 MDM - Neuro Symptoms/Deficit Medical Decision Making I did call the senior care try to establish or and/or confirmed the last known well. They could not confirm anything more recent than 6 PM last night. She is out of the window for any thrombolytics and she does not have an embolism that is amenable to embolectomy. Her stroke score is 15. She has new left-sided deficits according to the daughter that is in the room her deficits from previous stroke from the right knee patient actually been using her left hand to compensate but now significant left-sided deficits. Will admit. I discussed Dr. Perez orders are written. Troponin is elevated although the second 1 came down discussed with Dr. Christensen she had no objections to using heparin because of the elevated troponin. Her CPK is also elevated with a minimally positive MB. Medical Records I reviewed the patient's medical records. Lab Data I reviewed the patient's lab results. : 02/18/22 10:15 02/18/22 10:[address] 02/18/22 10:16 IMPRESSION: 1. No evidence of intracranial hemorrhage or mass effect. 2. Moderate small vessel changes. Moderate parenchymal volume loss. 3. No acute intracranial findings. Head/Neck CTA 02/18/22 10:44 IMPRESSION: 1. Mild less than 50% RIGHT ICA stenosis with calcified atheromatous disease. 2. No significant LEFT ICA stenosis. 3. LEFT dominant vertebral artery. Both vertebral arteries are patent. 4. No flow-limiting intracranial stenosis. 5. 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 Laboratory Results WBC 7.3 10^3/uL (4.0-10.0) 02/18/22 10:15 RBC 3.61 10^6/uL (4.1-5.3) L 02/18/22 10:15 Hgb 9.7 g/dL (11.5-15.3) L 02/18/22 10:15 Hct 30.9 % (37.0-47.0) L 02/18/22 10:15 MCV 85.6 fl (81-99) 02/18/22 10:15 MCH 26.9 pg (28.0-34.0) L 02/18/22 10:15 MCHC 31.4 g/dL (30.0-36.0) 02/18/22 10:15 RDW 21.2 % (12.1-15.1) H 02/18/22 10:15 Plt Count 148 10^3/cmm (130-400) 02/18/22 10:15 MPV 10.2 fL (7.4-10.4) 02/18/22 10:15 Neut % (Auto) 61.4 % 02/18/22 10:15 Lymph % (Auto) 17.2 % 02/18/22 10:15 [place] % (Auto) 17.9 % 02/18/22 10:15 Eos % (Auto) 1.9 % 02/18/22 10:15 Baso % (Auto) 1.2 % 02/18/22 10:15 Neut # (Auto) 4.44 10^3/uL (1.8-7.7) 02/18/22 10:15 Lymph # (Auto) 1.3 10^3/uL (0.8-4.8) 02/18/22 10:15 [place] # (Auto) 1.3 10^3/uL (0.2-0.9) H 02/18/22 10:15 Eos # (Auto) 0.1 10^3/uL (0.0-0.8) 02/18/22 10:15 Baso # (Auto) 0.1 10^3/uL (0.0-0.1) 02/18/22 10:15 Nucleated RBC % (auto) 0 % 02/18/22 10:15 Nucleated RBCs # 0.0 /100WBC 02/18/22 10:15 Sodium 143 mmol/L (136-145) 02/18/22 10:15 Potassium 3.5 mmol/L (3.5-5.1) 02/18/22 10:15 Chloride 108 mmol/L (98-107) H 02/18/22 10:15 Carbon Dioxide 25 mmol/L (22-29) 02/18/22 10:15 Anion Gap 13.5 (5-19) 02/18/22 10:15 BUN 24 mg/dL (8-23) H 02/18/22 10:15 Creatinine 0.7 mg/dL (0.5-0.9) 02/18/22 10:15 GFR Calculation 83.2 mL/min (90-130) L 02/18/22 10:15 Glucose 75 mg/dL (65-115) 02/18/22 10:15 Calculated Osmolality 299 mOsm/kg (285-295) H 02/18/22 10:15 Lactic Acid 1.3 mmol/L (0.5-2.2) 02/18/22 10:15 Calcium 8.8 mg/dL (8.5-10.5) 02/18/22 10:15 Total Bilirubin 1.0 mg/dL (0.15-1.2) 02/18/22 10:15 AST 99 U/L (0-32) H 02/18/22 10:15 ALT 59 U/L (0-33) H 02/18/22 10:15 Alkaline Phosphatase 184 IU/L (35-105) H 02/18/22 10:15 Creatine Kinase 1005 U/L (26-192) H* 02/18/22 10:15 CK-MB (CK-2) 18.7 ng/mL (0-5.34) H 02/18/22 10:15 Troponin T Baseline 131 ng/L (0-10) H* 02/18/22 10:15 Troponin T 120 Minute 123.3 ng/L (0-10) H 02/18/22 12:35 Delta Troponin T -7.7 ABS# (0-10) L 02/18/22 12:35 Total Protein 6.8 g/dL (6.6-8.7) 02/18/22 10:15 Albumin 2.9 g/dL (3.5-5.2) L 02/18/22 10:15 Globulin 3.9 g/dL (1.3-4.6) 02/18/22 10:15 Discharge Plan Discharge Patient Disposition: Admitted As Inpatient Clinical Impression: Acute CVA (cerebrovascular accident), Non-ST elevation [place] (NSTEMI), History of breast cancer Condition: Stable Prescriptions: No Action multivitamin Tablet 1 tab PO DAILY@08 0RF calcium carbonate [Calcium 600] 600 mg calcium (1,500 mg) tablet 900 mg PO DAILY@08 0RF magnesium 250 mg tablet 250 mg PO DAILY@08 0RF atorvastatin 80 mg tablet 80 mg PO DAILY@08 0RF pantoprazole 40 mg tablet,delayed release (DR/EC) 40 mg PO DAILY@06 0RF Claritin 10 mg Tablet 10 mg PO DAILY@08 0RF amoxicillin-pot clavulanate 875-125 mg tablet 1 tab PO BID@08,20 0RF aspirin 81 mg tablet,delayed release (DR/EC) 81 mg PO DAILY@08 0RF potassium chloride 20 mEq tablet,ER particles/crystals 20 meq PO DAILY@08 0RF Referrals: Mauricio Christian MD [Primary Care Provider] - Coding Level of Care Code ED Generator Switchboard Operator for Chg Fwd Exam Comprehensive
[2022-02-18] MEDS: heparin 5,000 unit/mL INJ 1 mL IV (13:16)
[2022-02-18 13:17] LABS: Troponin 5 2HR Delta -7.7 ABS# (0-10)
[2022-02-18 13:19] LABS: Troponin 5 2HR 123.3 ng/L (0-10)
[2022-02-18] MEDS: heparin drip 25,000 UNIT/500 ML PREMIX 21 UNIT IV (13:25)
--- NOTE | 2022-02-18 15:25 | P.HP_ITS ---
Providers/Chief Complaint Primary Care Provider: Mauricio Christian MD Chief Complaint: AMS History of Present Illness Yenifer Ríos is a 66 year old female with PMH OF CVA, Ca breast with mets, DVT was brought in from the [facility] by the ems with c/o AMS, as well lt sided weakness with lt sided facial drop this morning, her last known well was 6pm per family.Upon arrival in the ER her NIHSS : Was 15 on arrival in the ER, neurology was consulted by ER. Not a candidate for Tpa or embolectomy. History has been taken by ER Chart review, as the patient is not very participative. Pertinent Imaging studies: C/T Head without Contrast : No acute intracranial pathology CTA Head and Neck :Mild less than 50% RIGHT ICA stenosis with calcified atheromatous disease.No significant LEFT ICA stenosis. LEFT dominant vertebral artery. Both vertebral arteries are patent.No flow-limiting intracranial stenosis. EKG: SINUS RHYTHM WITH SINUS ARRHYTHMIA Pertinent Labs : WBC : 7.3 H&H : 9.7/ 30 PLT : 148 Na: 143 , K: 3.5 BUN/SCR: 24/0.7 AST:99 ALT: 59 ALP : 184 CK: 1005 Troponin : 131,123,127 Neurology was in agreement to start her on Heparin drip. Review of Systems General: Reports: ROS unobtainable due to medical condition Medications/Allergies Home Medications Medication Instructions Recorded Confirmed Last Taken Type calcium carbonate 600 mg calcium 900 mg PO DAILY@08 tab 03/13/21 02/18/22 02/17/22 History (1,500 mg) tablet (Calcium) magnesium 250 mg tablet 250 mg PO DAILY@03/13/21 02/18/22 02/17/22 History multivitamin 1 tab PO DAILY@03/13/21 02/18/22 02/17/22 History amoxicillin 875 mg-potassium 1 tab PO BID@02/18/22 02/18/22 02/17/22 History clavulanate 125 mg tablet aspirin 81 mg tablet,delayed 81 mg PO DAILY@02/18/22 02/18/22 02/17/22 History release atorvastatin 80 mg tablet 80 mg PO DAILY@02/18/22 02/18/22 02/17/22 History loratadine 10 mg tablet (Claritin) 10 mg PO DAILY@02/18/22 02/18/2202/17/22 History pantoprazole 40 mg tablet,delayed 40 mg PO DAILY@06 02/18/22 02/18/22 02/17/22 History release potassium chloride 20 mEq 20 meq PO DAILY@02/18/22 02/18/22 02/17/22 History tablet,extended release(part/cryst) Allergies Allergy/AdvReac Type Severity Reaction Status Date / Time Iodinated Contrast Media Allergy ALGY-Anaphy Verified 02/11/22 13:44 laxis iodine Allergy ALGY-Anaphy Verified 02/11/22 13:44 laxis PFSH Acute PFSH: Medical History Breast cancer metastasized to bone Breast cancer metastasized to brain Hypokalemia Left leg DVT Ovarian cancer Stage IV Recurrent strokes Skin cancer Surgical History H/O abdominal hysterectomy Debulking surgery H/O umbilical hernia repair History of bilateral mastectomy x2 2014 History of colon surgery Rectosigmoid resection and anastomosis History of oral surgery S/P DARCIE-BSO Family History Other Cancer Hyperlipidemia Hypertension Psychiatric illness Denies family history of Diabetes CAD (coronary artery disease) Clotting disorder Dementia Chronic kidney disease (CKD) Suicide Anesthesia complication Bleeding disorder Lung disease Stroke Social History Smoking and tobacco status: never smoked Alcohol intake: never Marital status: History of recent travel: No Vitals/I&O/Wt Last Vital Signs Temp 98.5 F 02/18/22 09:50 Pulse 73 02/18/22 11:03 Resp 20 H 02/18/22 11:03 BP 122/46 02/18/22 11:03 Pulse Ox 92 02/18/22 11:03 Physical Exam Narrative: NORM HENMT: COMMON NORMALS: normocephalic and atraumatic HEAD & SCALP: normocephalic and atraumatic Chest: CHEST: Yes Symmetrical chest wall rise Resp: COMMON NORMALS: clear to auscultation bilaterally EFFORT & INSPECTION: Yes symmetric chest movement AUSCULTATION: clear to auscultation bilaterally Cardio: COMMON NORMALS: regular rate, regular rhythm, S1 normal heart sound present, S2 normal heart sound present, No gallops present (Cardio), No murmurs present (Cardio), No rub (Cardio) and Peripheral pulses 2+ throughout RATE: regular rate RHYTHM: regular rhythm HEART SOUNDS: S1 normal heart sound present and S2 normal heart sound present PERIPHERAL PULSES: Peripheral pulses 2+ throughout GI: COMMON NORMALS: Normal to inspection, nondistended, normoactive bowel sounds present, Soft to palpation, non-tender, No hepatosplenomegaly present and no masses AUSCULTATION: Yes normoactive bowel sounds PALPATION: Yes Soft to palpation and Yes No hepatosplenomegaly present RECTAL EXAM: deferred Extremity: COMMON NORMALS: no clubbing, cyanosis or edema and no pedal edema Data : 02/18/22 10:15 02/18/22 10:15 A&P Assessment and plan (1) Acute CVA (cerebrovascular accident): Status: Acute (2) Non-ST elevation [place] (NSTEMI): Status: Acute (3) Left leg DVT: Status: Acute (4) Breast cancer metastasized to bone: Status: Acute (5) Transaminitis: Status: Acute (6) Rhabdomyolysis: Status: Acute Plan 66 year old female with PMH OF CVA, Ca breast with mets, DVT was brought in from the [facility] by the ems with c/o AMS, as well lt sided weakness with lt sided facial drop this morning, her last known well was 6pm per family.Upon arrival in the ER her NIHSS : Was 15. Assessment : Ac CVA NSTEMI / Possible Takotsubo cardiomyopathy 2/2 to Ac CVA: Follow 2D ECho Transaminitis possibly from rhabdo, will be careful with statin. Rhabdomyolysis AMS 2/2 CVA H/O CVA H/O DVT Plan : Follow 2D Echo Telemtry Monitoring PT/OT/SPL Permissive HTN Currently patient is on ACS Protocol Gentle I.V Hydration with NS Monitor CK Monitor LFT Code Status :AND DVT PPX: On Heparin Attestations Medical Necessity Statement*: Patient needs to be in hospital for the management of NSTEMI, CVA.Anticipated LOS Greater then 2 midnights. Time Spent in Patient Care: Greater than 35 minutes (>than 50% of time spent in counselling and/or direct pt care on unit) . Coding Level of Care Code Acute Forging Press Setter Up for Chg Fwd Exam Detailed Diagnoses Acute CVA (cerebrovascular accident) I63.9 Non-ST elevation [place] (NSTEMI) I21.4 Left leg DVT I82.402 Breast cancer metastasized to bone C50.919; C79.51 Transaminitis R74.01 Rhabdomyolysis M62.82
--- NOTE | 2022-02-18 15:45 | PC.NURSE ---
PHYSICIAN VERBALLY INSTRUCTED TO GET 6HR PTT AT 1930
--- NOTE | 2022-02-18 16:17 | ECG_ITS ---
[facility] Test Date: 2022-02-18 Pat Name: Yenifer Ríos Department: Room: 256 Gender: Female Customer Services Manager: : 1955 Requested By: Cristo Dejesus Order Number: [id number] Raciel MD: Prasanna Reyes M.D. Measurements Intervals [place] Rate: 65 P: 86 AK: 155 QRS: 118 QRSD: 117 T: 81 QT: 446 QTc: 466 Interpretive Statements SINUS RHYTHM WITH SINUS ARRHYTHMIA LATERAL MYOCARDIAL INFARCTION , OF INDETERMINATE AGE [40+ ms Q WAVE AND/OR ST/T ABNORMALITY IN I/aVL/V5/V6] Compared to ECG 02/18/2022 12:15:22 Myocardial infarct finding now present Intraventricular conduction delay no longer present Prolonged QT interval no longer present Electronically Signed On 02-18-2022 18:07:51 CDT by Prasanna Reyes M.D. [email or web address]
[2022-02-18 18:06] LABS: Troponin 5 6HR 127.2 ng/L (0-10); Troponin 5 6HR Delta -3.8 ng/L (0-12)
[2022-02-18] MEDS: sodium chloride 0.9% 1,000 ML 75 ML IV (19:14)
[2022-02-19] VITALS (10 sets, daily range): BP systolic 77–124; BP diastolic 37–67; PULSE 58–79; RESP 13–24; TEMP 36.3–36.8; O2SAT 92–95
[2022-02-19 00:06] LABS: Partial Thromboplastin Time > 250.0 SECONDS (23.9-36.7)
[2022-02-19 01:31] LABS: Partial Thromboplastin Time > 250.0 SECONDS (23.9-36.7)
[2022-02-19 06:30] LABS: Basophils % 0.3 %; Eosinophils # 0.1 10^3/uL (0.0-0.8); Eosinophils % 1.8 %; Hematocrit 28.1 % (37.0-47.0); Hemoglobin 9.4 g/dL (11.5-15.3); Lymphocytes # 1.9 10^3/uL (0.8-4.8); Lymphocytes % 28.6 %; Mean Corpuscular HGB Conc 33.5 g/dL (30.0-36.0); Mean Corpuscular Hemoglobin 27.4 pg (28.0-34.0); Mean Corpuscular Volume 81.9 fl (81-99); Mean Platelet Volume 10.3 fL (7.4-10.4); Monocytes # 1.3 10^3/uL (0.2-0.9); Monocytes % 19.7 %; Neutrophils # 3.33 10^3/uL (1.8-7.7); Nucleated Red Blood Cells % 0 %; Platelet Count 141 10^3/cmm (130-400); Red Blood Count 3.43 10^6/uL (4.1-5.3); Red Cell Distribution Width 20.9 % (12.1-15.1); White Blood Count 6.8 10^3/uL (4.0-10.0)
[2022-02-19 07:03] LABS: Alanine Aminotransferase 53 U/L (0-33); Albumin Level 2.7 g/dL (3.5-5.2); Alkaline Phosphatase 177 IU/L (35-105); Aspartate Amino Transferase 96 U/L (0-32); Blood Urea Nitrogen 28 mg/dL (8-23); Calcium 8.9 mg/dL (8.5-10.5); Carbon Dioxide 24 mmol/L (22-29); Chloride 106 mmol/L (98-107); Globulin 3.9 g/dL (1.3-4.6); Glomerular Filtration Rate 83.2 mL/min (90-130); Glucose 94 mg/dL (65-115); Magnesium 1.7 mg/dL (1.7-2.3); Osmolality Calculated 299 mOsm/kg (285-295); Sodium 142 mmol/L (136-145); Total Bilirubin 1.1 mg/dL (0.15-1.2); Total Protein 6.6 g/dL (6.6-8.7)
[2022-02-19 07:04] LABS: Anion Gap 15.5 (5-19); Potassium 3.5 mmol/L (3.5-5.1)
[2022-02-19 07:12] LABS: Partial Thromboplastin Time 206.7 SECONDS (23.9-36.7)
--- NOTE | 2022-02-19 08:55 | USCV_ITS ---
Yenifer Ríos Age: 66 Gender: F : 1955 Exam Date: 02/19/2022 09:37 Ordering Phys: Leopoldo Perez MD Technologist: [id number] Exam Location: [facility] [place] Indication: NSTEMI BP: 110 / 67 HR: 64 Rhythm: Sinus Technical Quality: Suboptimal MEASUREMENTS (Male / Female) Normal Values 2D ECHO LVOT Diameter 2.0 cm LV Ejection Fraction MOD 2C 69.1 % LV Ejection Fraction 2C AL 67.1 % LA Diameter 1.8 cm LA Width 3.8 cm LA Height 4.7 cm RA Width 3.7 cm RA Height 4.6 cm Aorta at Sinotubular Diameter 1.9 cm IVC Diameter 1.4 cm M-MODE Aortic Annulus Diameter 3.0 cm LA Ao Ratio MM 0.6 DOPPLER AV Peak Velocity 162.0 cm/s LVOT Peak Velocity 144.0 cm/s AV Area Cont Eq vti 2.9 cm squared AV Area Cont Eq pk 2.8 cm squared MV Peak Velocity 116.0 cm/s MV Area PHT 2.7 cm squared Mitral E to A Ratio 1.3 MV E' Velocity 53.2 cm/s Mitral E to MV E' Ratio 11.7 Mitral E to LV E' Lateral Ratio 12.9 Mitral E to LV E' Septal Ratio 10.7 TR Peak Velocity 256.6 cm/s TR Peak Gradient 26.3 mmHg TR Mean Velocity 194.6 cm/s TR Mean Gradient 16.8 mmHg TR Velocity Time Integral 88.2 cm TV Peak E Velocity 53.0 cm/s Right Atrial Pressure 3.0 mmHg Pulmonary Artery Systolic Pressu 29.3 mmHg PV Peak Velocity 111.0 cm/s RV Acceleration Time 0.1 s RV Ejection Time 0.4 s RV AcT/ET 0.4 FINDINGS Left Ventricle Normal left ventricular size. LV systolic function is normal with EF of 55 to 60%. No regional wall motion wall abnormalities. Right Ventricle The right ventricle is normal in size and function. Right Atrium The right atrium is normal in size. Left Atrium The left atrium is dilated Mitral Valve Severe mitral annular calcification is seen. No significant stenosis. Mild mitral regurgitation Aortic Valve Not well-visualized. No significant stenosis. There is no aortic regurgitation. Tricuspid Valve Trace tricuspid regurgitation. Pulmonic Valve Not well-visualized Pericardium Normal pericardium without effusion. Aorta Normal ascending aorta dimension. IVC CONCLUSIONS LV systolic function is normal with EF of 55 to 60% Left atrium is dilated. Mild mitral regurgitation. Severe mitral annular calcification is seen. Trace tricuspid regurgitation. Compared to prior echocardiogram from 2020, no significant changes are seen. Prasanna Reyes MD (Electronically Signed) Final Date: 19 February 2022 17:43 S
[2022-02-19] MEDS: sodium chloride 0.9% 1,000 ML 75 ML IV (10:53)
[2022-02-19 12:05] LABS: Partial Thromboplastin Time 82.7 SECONDS (23.9-36.7)
[2022-02-19] MEDS: atorvastatin 40 mg Tablet PO (12:07)
[2022-02-19] MEDS: multivitamin therapeutic Tablet 1 TAB PO (12:07)
[2022-02-19] MEDS: magnesium oxide 400 mg tablet 200 MG PO (12:07)
[2022-02-19] MEDS: potassium chloride ER 20 mEq Tablet PO (12:07)
[2022-02-19] MEDS: aspirin 81 mg EC Tablet PO (12:08)
--- NOTE | 2022-02-19 12:33 | PM.PN ---
Subjective Subjective: Patient was seen and examined this morning, much more alert awake oriented today, patient was evaluated by PT OT speech, currently she is good for soft mechanical diet. Medications: Medication Review Details: Generic Name Dose Route Start Last Admin Trade Name Titi PRN Reason Stop Dose Admin Aspirin 81 mg 02/19/22 08:00 02/19/22 09:50 Aspirin 81 Mg Ec Tablet PO Not Given DAILY@08 [facility] Atorvastatin Calci um 40 mg 02/19/22 08:00 02/19/22 09:50 Atorvastatin 40 Mg Tablet PO Not Given DAILY@08 [facility] Sodium Chloride 1,000 mls @ 75 ml s/hr 02/18/22 15:30 02/19/22 10:53 Sodium Chloride 0.9% IV 75 mls/hr .[id number] [facility] Administration Multivitamins Ther apeutic 1 tab 02/19/22 08:00 02/19/22 09:51 Multivitamin The rapeutic Tablet PO Not Given DAILY@08 [facility] Pantoprazole Sodiu m 40 mg 02/19/22 06:00 02/19/22 05:[address] 40 Mg Tablet PO Not Given DAILY@06 [facility] Potassium Chloride 20 meq 02/19/22 08:00 02/19/22 09:51 Potassium Chlori de Er 20 Meq Table t PO Not Given DAILY@08 [facility] Vitals/I&O/Wt Last Vital Signs Temp 97.7 F 02/19/22 11:01 Pulse 58 L 02/19/22 11:01 Resp 16 02/19/22 11:01 BP 90/48 02/19/22 11:01 Pulse Ox 94 02/19/22 11:01 02/18/22 02/19/22 02/19/22 22:59 06:59 14:59 Intake Total 248.5 / 248.5 1000 / 1000 Balance 248.5 / 248.5 1000 / 1000 Weight last 48 hrs Weight 72.665 kg Physical Exam Narrative: NAD HENMT: COMMON NORMALS: normocephalic and atraumatic HEAD & SCALP: normocephalic and atraumatic Resp: COMMON NORMALS: clear to auscultation bilaterally AUSCULTATION: clear to auscultation bilaterally Cardio: COMMON NORMALS: regular rate, regular rhythm, S1 normal heart sound present, S2 normal heart sound present, No gallops present (Cardio), No murmurs present (Cardio), No rub (Cardio) and Peripheral pulses 2+ throughout RATE: regular rate RHYTHM: regular rhythm HEART SOUNDS: S1 normal heart sound present and S2 normal heart sound present PERIPHERAL PULSES: Peripheral pulses 2+ throughout GI: COMMON NORMALS: Normal to inspection, nondistended, normoactive bowel sounds present, Soft to palpation, non-tender, No hepatosplenomegaly present and no masses AUSCULTATION: Yes normoactive bowel sounds PALPATION: Yes Soft to palpation and Yes No hepatosplenomegaly present RECTAL EXAM: deferred Extremity: COMMON NORMALS: no clubbing, cyanosis or edema and no pedal edema Data : 02/19/22 06:12 02/19/22 06:12 A&P Assessment and plan (1) Acute CVA (cerebrovascular accident): Status: Acute (2) Non-ST elevation [place] (NSTEMI): Status: Acute (3) Left leg DVT: Status: Acute (4) Breast cancer metastasized to bone: Status: Acute (5) Transaminitis: Status: Acute (6) Rhabdomyolysis: Status: Acute Plan 66 year old female with PMH OF CVA, Ca breast with mets, DVT was brought in from the [facility] by the ems with c/o AMS, as well lt sided weakness with lt sided facial drop this morning, her last known well was 6pm per family.Upon arrival in the ER her NIHSS : Was 15. Assessment : Ac CVA NSTEMI / Possible Takotsubo cardiomyopathy 2/2 to Ac CVA: Follow 2D ECho Transaminitis possibly from rhabdo, will be careful with statin. Rhabdomyolysis AMS 2/2 CVA H/O CVA H/O DVT Plan : Follow 2D Echo Telemtry Monitoring PT/OT/SPL Permissive HTN Currently patient is on ACS Protocol Gentle I.V Hydration with NS Monitor CK Monitor LFT Code Status :AND DVT PPX: On Heparin Attestations Medical Necessity Statement*: Patient is to be in hospital for management of NSTEMI CVA. Time Spent in Patient Care: Greater than 35 minutes Coding Level of Care Code Acute Rescue Boat Operator for [facility] Fwd Exam Detailed Diagnoses Acute CVA (cerebrovascular accident) I63.9 Non-ST elevation [place] (NSTEMI) I21.4 Left leg DVT I82.402 Breast cancer metastasized to bone C50.919; C79.51 Transaminitis R74.01 Rhabdomyolysis M62.82
--- NOTE | 2022-02-19 15:11 | PC.NURSE ---
left 77/37 right 96/60
[2022-02-19] MEDS: enoxaparin 80 mg/0.8 mL Syringe 70 MG SUBCUT (18:12)
[2022-02-20] VITALS (7 sets, daily range): BP systolic 93–131; BP diastolic 50–58; PULSE 68–79; RESP 13–18; TEMP 36.4–36.8; O2SAT 90–93
[2022-02-20 02:36] LABS: Basophils # 0.1 10^3/uL (0.0-0.1); Basophils % 0.9 %; Eosinophils # 0.4 10^3/uL (0.0-0.8); Eosinophils % 4.5 %; Hematocrit 27.1 % (37.0-47.0); Hemoglobin 8.8 g/dL (11.5-15.3); Lymphocytes % 33.2 %; Mean Corpuscular HGB Conc 32.5 g/dL (30.0-36.0); Mean Corpuscular Hemoglobin 27.8 pg (28.0-34.0); Mean Corpuscular Volume 85.8 fl (81-99); Mean Platelet Volume 11.5 fL (7.4-10.4); Monocytes # 1.6 10^3/uL (0.2-0.9); Monocytes % 17.1 %; Neutrophils # 4.03 10^3/uL (1.8-7.7); Nucleated Red Blood Cells % 0 %; Platelet Count 131 10^3/cmm (130-400); Red Blood Count 3.16 10^6/uL (4.1-5.3); Red Cell Distribution Width 21.4 % (12.1-15.1); White Blood Count 9.2 10^3/uL (4.0-10.0)
[2022-02-20 02:52] LABS: Albumin Level 2.7 g/dL (3.5-5.2); Alkaline Phosphatase 152 IU/L (35-105); Blood Urea Nitrogen 25 mg/dL (8-23); Calcium 8.6 mg/dL (8.5-10.5); Carbon Dioxide 23 mmol/L (22-29); Chloride 104 mmol/L (98-107); Globulin 2.8 g/dL (1.3-4.6); Glomerular Filtration Rate 122.7 mL/min (90-130); Glucose 52 mg/dL (65-115); Osmolality Calculated 286 mOsm/kg (285-295); Sodium 137 mmol/L (136-145); Total Bilirubin 0.8 mg/dL (0.15-1.2); Total Protein 5.5 g/dL (6.6-8.7)
[2022-02-20 03:11] LABS: Slide Review Slide Review Perform
[2022-02-20 03:17] LABS: Alanine Aminotransferase 50 U/L (0-33); Anion Gap 13.7 (5-19); Aspartate Amino Transferase 92 U/L (0-32); Creatine Phosphokinase 1318 U/L (26-192); Potassium 3.7 mmol/L (3.5-5.1)
[2022-02-20] MEDS: sodium chloride 0.9% 1,000 ML 75 ML IV (04:17)
[2022-02-20] MEDS: pantoprazole DR 40 mg Tablet PO (06:22)
[2022-02-20] MEDS: enoxaparin 80 mg/0.8 mL Syringe 70 MG SUBCUT (06:23)
[2022-02-20] MEDS: aspirin 81 mg EC Tablet PO (08:32)
[2022-02-20] MEDS: atorvastatin 40 mg Tablet PO (08:32)
[2022-02-20] MEDS: potassium chloride ER 20 mEq Tablet PO (08:32)
[2022-02-20] MEDS: multivitamin therapeutic Tablet 1 TAB PO (08:32)
[2022-02-20] MEDS: nystatin powder 15 gm Btl 1 APPLIC TOPICAL (11:31)
[2022-02-20 12:25] LABS: SARS Covid-2 Antigen Negative (Negative)
--- NOTE | 2022-02-21 13:21 | PM.DCS ---
Discharge Providers Date of Admission: 02/18/22 13:25 Date of Discharge: February 21, 2022 Attending Provider at Admission: Leopoldo Perez MD Attending Provider at Discharge: Leopoldo Perez MD Primary Care Provider: Mauricio Christian MD Diagnoses at Discharge Discharge Diagnosis (1) Acute CVA (cerebrovascular accident): (2) Non-ST elevation MN (NSTEMI): (3) Left leg DVT: (4) Breast cancer metastasized to bone: (5) Transaminitis: (6) Rhabdomyolysis: Reason for Visit Reason for Visit: AMS Hospital Course Hospital Course HPI: Yenifer Ríos is a 66 year old female with PMH OF CVA, Ca breast with mets, DVT was brought in from the [facility] by the ems with c/o AMS, as well lt sided weakness with lt sided facial drop this morning, her last known well was 6pm? per family.Upon arrival in the ER her NIHSS : Was 15 on arrival in the ER, neurology was consulted by ER. Not a candidate for Tpa or embolectomy. History has been taken by ER Chart review, as the patient is not very participative. Pertinent Imaging studies: C/T Head without Contrast :? No acute intracranial pathology CTA Head and Neck :Mild less than 50% RIGHT ICA stenosis with calcified atheromatous disease.No significant LEFT ICA stenosis. LEFT dominant vertebral artery. Both vertebral arteries are patent.No flow-limiting intracranial stenosis. EKG:?SINUS RHYTHM WITH SINUS ARRHYTHMIA Pertinent Labs : WBC : 7.3 H&H : 9.7/ 30 PLT : 148 Na: 143 , K: 3.5? BUN/SCR: 24/0.7 AST:99? ALT:? 59 ALP? : 184 CK: 1005 Troponin : 131,123,127 Neurology was in agreement to start her on Heparin drip. Hospital course: She was admitted for the management of, acute CVA, NSTEMI, Transaminitis possibly from rhabdo, will be careful with statin.Rhabdomyolysis, AMS 2/2 CVA she was continued on, heparin drip, aspirin statin, permissive hypertension, speech PT OT evaluations were done, telemetry monitoring was done, which failed to show any significant arrhythmia, 2D echo was done: LV systolic function is normal with EF of 55 to 60%Left atrium is dilated.?Mild mitral regurgitation.? Severe mitral annular calcification ?is seen. Trace tricuspid regurgitation. For NSTEMI patient denied any chest pain, shortness of breath, family was not interested in continuing any aggressive intervention, they were keen on continuing medical management, At the time of discharge, she was at her baseline mentation, mostly at the halfway also she is not very ambulatory She is mostly bedbound at baseline, at the time of discharge she was at her baseline functional status. For rhabdomyolysis, she was continued on gentle IV hydration CK was trended, for history of transaminitis, possibly secondary to rhabdo, transaminitis was slowly improving , statin dose has been decreased to 20 mg p.o. daily. Overall patient patient responded well to medical management and is being discharged in stable condition to halfway She will continue to follow primary care physician as an outpatient. Physical Exam Narrative: NAD HENMT: COMMON NORMALS: normocephalic and atraumatic HEAD & SCALP: normocephalic and atraumatic Chest: CHEST: Yes Symmetrical chest wall rise Resp: COMMON NORMALS: clear to auscultation bilaterally EFFORT & INSPECTION: Yes symmetric chest movement AUSCULTATION: clear to auscultation bilaterally Cardio: COMMON NORMALS: regular rate, regular rhythm, S1 normal heart sound present, S2 normal heart sound present, No gallops present (Cardio), No murmurs present (Cardio), No rub (Cardio) and Peripheral pulses 2+ throughout RATE: regular rate RHYTHM: regular rhythm HEART SOUNDS: S1 normal heart sound present and S2 normal heart sound present PERIPHERAL PULSES: Peripheral pulses 2+ throughout GI: COMMON NORMALS: Normal to inspection, nondistended, normoactive bowel sounds present, Soft to palpation, non-tender, No hepatosplenomegaly present and no masses AUSCULTATION: Yes normoactive bowel sounds PALPATION: Yes Soft to palpation and Yes No hepatosplenomegaly present RECTAL EXAM: deferred Extremity: COMMON NORMALS: no clubbing, cyanosis or edema and no pedal edema Discharge Data Studies Completed and Pending Completed Studies During Hospitalization Category Date Time Status CT head wo con* [id number] Stat Cat Scan 02/18/22 10:16 Completed CTA head neck [CT angio headneck* [id number]] Stat Cat Scan 02/18/22 10:44 Completed CV. echo complete* [id number] Routine Ultrasound 02/19/22 08:55 Completed Radiology Impressions Head CT 02/18/22 10:16 IMPRESSION: 1. No evidence of intracranial hemorrhage or mass effect. 2. Moderate small vessel changes. Moderate parenchymal volume loss. 3. No acute intracranial findings. Head/Neck CTA 02/18/22 10:44 IMPRESSION: 1. Mild less than 50% RIGHT ICA stenosis with calcified atheromatous disease. 2. No significant LEFT ICA stenosis. 3. LEFT dominant vertebral artery. Both vertebral arteries are patent. 4. No flow-limiting intracranial stenosis. 5. Normal variant persistent LEFT [employer]. Laboratory Results WBC 9.2 10^3/uL (4.0-10.0) 02/20/22 01:55 RBC 3.16 10^6/uL (4.1-5.3) L 02/20/22 01:55 Hgb 8.8 g/dL (11.5-15.3) L 02/20/22 01:55 Hct 27.1 % (37.0-47.0) L 02/20/22 01:55 MCV 85.8 fl (81-99) 02/20/22 01:55 MCH 27.8 pg (28.0-34.0) L 02/20/22 01:55 MCHC 32.5 g/dL (30.0-36.0) 02/20/22 01:55 RDW 21.4 % (12.1-15.1) H 02/20/22 01:55 Plt Count 131 10^3/cmm (130-400) 02/20/22 01:55 MPV 11.5 fL (7.4-10.4) H 02/20/22 01:55 Neut % (Auto) 44.0 % 02/20/22 01:55 Lymph % (Auto) 33.2 % 02/20/22 01:55 [place] % (Auto) 17.1 % 02/20/22 01:55 Eos % (Auto) 4.5 % 02/20/22 01:55 Baso % (Auto) 0.9 % 02/20/22 01:55 Neut # (Auto) 4.03 10^3/uL (1.8-7.7) 02/20/22 01:55 Lymph # (Auto) 3.0 10^3/uL (0.8-4.8) 02/20/22 01:55 [place] # (Auto) 1.6 10^3/uL (0.2-0.9) H 02/20/22 01:55 Eos # (Auto) 0.4 10^3/uL (0.0-0.8) 02/20/22 01:55 Baso # (Auto) 0.1 10^3/uL (0.0-0.1) 02/20/22 01:55 Nucleated RBC % (auto) 0 % 02/20/22 01:55 Nucleated RBCs # 0.0 /100WBC 02/20/22 01:55 APTT 82.7 SECONDS (23.9-36.7) H D 02/19/22 11:35 Sodium 137 mmol/L (136-145) 02/20/22 01:55 Potassium 3.7 mmol/L (3.5-5.1) 02/20/22 01:55 Chloride 104 mmol/L (98-107) 02/20/22 01:55 Carbon Dioxide 23 mmol/L (22-29) 02/20/22 01:55 Anion Gap 13.7 (5-19) 02/20/22 01:55 BUN 25 mg/dL (8-23) H 02/20/22 01:55 Creatinine 0.5 mg/dL (0.5-0.9) 02/20/22 01:55 GFR Calculation 122.7 mL/min (90-130) 02/20/22 01:55 Glucose 52 mg/dL (65-115) L 02/20/22 01:55 Calculated Osmolality 286 mOsm/kg (285-295) 02/20/22 01:55 Lactic Acid 1.3 mmol/L (0.5-2.2) 02/18/22 10:15 Calcium 8.6 mg/dL (8.5-10.5) 02/20/22 01:55 Magnesium 1.7 mg/dL (1.7-2.3) 02/19/22 06:12 Total Bilirubin 0.8 mg/dL (0.15-1.2) 02/20/22 01:55 AST 92 U/L (0-32) H 02/20/22 01:55 ALT 50 U/L (0-33) H 02/20/22 01:55 Alkaline Phosphatase 152 IU/L (35-105) H 02/20/22 01:55 Creatine Kinase 1318 U/L (26-192) H* 02/20/22 01:55 Creatine Kinase Cancelled 02/20/22 01:55 CK-MB (CK-2) 18.7 ng/mL (0-5.34) H 02/18/22 10:15 Troponin T Baseline 131 ng/L (0-10) H* 02/18/22 10:15 Troponin T 120 Minute 123.3 ng/L (0-10) H 02/18/22 12:35 Delta Troponin T -7.7 ABS# (0-10) L 02/18/22 12:35 Troponin T Hi Sens 6Hr 127.2 ng/L (0-10) H 02/18/22 16:43 Troponin T Hi Sens 6Hr Delta -3.8 ng/L (0-12) L 02/18/22 16:43 Total Protein 5.5 g/dL (6.6-8.7) L 02/20/22 01:55 Albumin 2.7 g/dL (3.5-5.2) L 02/20/22 01:55 Globulin 2.8 g/dL (1.3-4.6) 02/20/22 01:55 SARS-CoV-2 Ag (Rapid) Negative (Negative) 02/20/22 12:00 Vitals Last Vital Signs Temp 97.8 F 02/20/22 14:09 Pulse 71 02/20/22 14:09 Resp 18 02/20/22 14:09 BP 131/57 02/20/22 14:09 Pulse Ox 93 02/20/22 11:49 Discharge Plan Discharge Patient Disposition: Xfer SNF Condition: Stable Prescriptions: New Lipitor 20 mg tablet 20 mg PO DAILY Qty: 30 0RF Continued multivitamin Tablet 1 tab PO DAILY@08 0RF calcium carbonate [Calcium 600] 600 mg calcium (1,500 mg) tablet 900 mg PO DAILY@08 0RF magnesium 250 mg tablet 250 mg PO DAILY@08 0RF pantoprazole 40 mg tablet,delayed release (DR/EC) 40 mg PO DAILY@06 0RF Claritin 10 mg Tablet 10 mg PO DAILY@08 0RF aspirin 81 mg tablet,delayed release (DR/EC) 81 mg PO DAILY@08 0RF potassium chloride 20 mEq tablet,ER particles/crystals 20 meq PO DAILY@08 0RF Discontinued atorvastatin 80 mg tablet 80 mg PO DAILY@08 0RF amoxicillin-pot clavulanate 875-125 mg tablet 1 tab PO BID@08, 0RF Discharge Orders: Discharge Order (Routine); Ordered 02/20/22 Ordered By: Leopoldo Perez Referrals: Mauricio Christian MD [Primary Care Provider] - 1 week Patient Instructions: Atorvastatin (By mouth), Opioid Safety Discharge Attestations Time Spent in Discharge Care*: less than 30 min Quality Metrics Clinical Quality Measures [ No reported AMI, CVA or VTE this stay] Coding Level of Care Code Acute [facility]g [facility] note Diagnoses Acute CVA (cerebrovascular accident) I63.9 Non-ST elevation MN (NSTEMI) I21.4 Left leg DVT I82.402 Breast cancer metastasized to bone C50.919; C79.51 Transaminitis R74.01 Rhabdomyolysis M62.82
== END 2022-02-20 14:10 | disposition skilled nursing facility (03) | DRG 64 ==
LOC: ER 14:46 → MEDSURG 16:12
PROVIDERS: Admitting Provider Internal Medicine; Emergency Provider Family Medicine; PCP Internal Medicine; Visit Provider Internal Medicine
DX: I63.9 Cerebral infarction, unspecified (principal); I21.4 Non-ST elevation (NSTEMI) myocardial infarction; C79.31 Secondary malignant neoplasm of brain; G81.94 Hemiplegia, unspecified affecting left nondominant side; C79.51 Secondary malignant neoplasm of bone; M62.82 Rhabdomyolysis; R29.810 Facial weakness; R47.01 Aphasia; R29.715 NIHSS score 15; Z86.73 Personal history of transient ischemic attack (TIA), and cerebral infarction without residual deficits; C50.919 Malignant neoplasm of unspecified site of unspecified female breast; Z90.13 Acquired absence of bilateral breasts and nipples; Z86.718 Personal history of other venous thrombosis and embolism; Z85.43 Personal history of malignant neoplasm of ovary; Z85.828 Personal history of other malignant neoplasm of skin; Z90.49 Acquired absence of other specified parts of digestive tract; Z90.710 Acquired absence of both cervix and uterus; Z79.82 Long term (current) use of aspirin
CPT/HCPCS: 36415; 70450; 70496; 70498; 80053; 82550; 82553; 83605; 83735; 84484; 85025; 85730; 87426; 92507; 92523; 92526; 92610; 93005; 93306; 94760; 96365; 96372; 96375; 97161; 97166; 97530; 99285; J1200; J1644; J1650; J2920; J7030; Q9967